=== PATIENT | female | born 1990 | race Caucasian/White ===

== ENCOUNTER 2019-08-28 21:49 | Observation (INO) | payer OTHER, SELFPAY ==
[2019-08-28 21:51] VITALS: BP 113/64; PULSE 93; RESP 16; TEMP 36.4; O2SAT 99
--- NOTE | 2019-08-28 21:57 | ED.NAVMDI ---
HPI - Nausea/Vomiting/Diarrhea General Chief complaint: Nausea/Vomiting/Diarrhea Stated complaint: N/V; 5 MONTHS Time Seen by Provider: 08/28/19 21:57 Source: patient Mode of arrival: ambulatory Limitations: no limitations History of Present Illness HPI Narrative: A 29 y/o female presents to the ED with c/o N/V. Pt states that the N/V started 2 days ago and has been constant since. She notes that she was seen at [facility] yesterday and was prescribed an anti-nausea medication. Pt adds that she has not taken her medication due to the vomiting. She denies diarrhea, fever, ABD pain, vaginal bleeding, and vaginal discharge. Pt states that she is diagnosed with a UTI and has not taken her antibiotics either. 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 MD elicited complaint: nausea and vomiting Onset (ago): day(s) (2) Associated abdominal pain: No Location of pain: none Associated symptoms: denies other symptoms Related Data Allergies Allergy/AdvReac Type Severity Reaction Status Date / Time sulfamethoxazole Allergy Mild Verified 02/28/15 10:54 clindamycin Allergy Unknown Verified 03/02/15 15:49 Sulfa (Sulfonamide Allergy Unknown Verified 03/02/15 15:48 Antibiotics) sulfamethizole Allergy Unknown Verified 03/02/15 15:48 trimethoprim Allergy Unknown Verified 03/02/15 15:48 Review of Systems Review of Systems: All systems reviewed & are unremarkable except as noted in HPI and below Constitutional: Constitutional: Denies fever(s) Gastrointestinal: Gastrointestinal: Denies abdominal pain, Denies diarrhea, Reports nausea and Reports vomiting Genitourinary: Genitourinary: Denies abnormal vaginal bleeding and Denies vaginal discharge [facility] Past Medical History Medical History Healthy adult Surgical History Surgical History (Updated 08/28/19 @ 22:04 by Kimberly Leigh) No pertinent past surgical history Social History Social History (Updated 08/28/19 @ 22:04 by Kimberly Leigh) Smoking status: Smoker, status unknown Alcohol intake: never Gender identity (if verbalized by the patient): Female Exam Narrative: Exam Narrative: APPEARANCE: No acute distress, nontoxic, resting in bed EYES: EOMI HEENT: Normocephalic, atraumatic, oromucosa dry, no erythema or exudate posterior pharynx RESPIRATORY: No respiratory distress Clear to auscultation bilaterally with no rhonchi wheezing or rales. CARDIOVASCULAR: Regular rate and rhythm without murmurs rubs or gallops. ABDOMINAL: Soft, nontender, nondistended, no rebound or guarding MUSCULOSKELETAl: Moves all extremities. No clubbing, cyanosis or edema. NEURO: Awake and alert. Following commands, speech normal, no focal deficits SKIN:: Warm, dry. No rashes lesions or abrasions PSYCHIATRIC: Normal affect/mood, Course Course Emergency Course: Patient was reassessed twice with p.o. challenges following medications and each time with emesis will admit at this time Discussed with Dr. Can presentation work-up. Agrees with admission at this time. Agrees with giving Zofran at this time Discussed with patient and family results of workup and diagnosis. Discussed need for admission. Patient and family understand and agree to current treatment plan Vital Signs Vital signs: Vital Signs Temperature 97.6 F 08/28/19 21:51 Pulse Rate 93 08/28/19 21:51 Respiratory Rate 16 08/28/19 21:51 Blood Pressure 113/64 08/28/19 21:51 Pulse Oximetry 99 08/28/19 21:51 Temperature 97.3 F L 08/28/19 23:14 Pulse Rate 84 08/29/19 00:50 Respiratory Rate 19 08/29/19 00:50 Blood Pressure 106/58 L 08/29/19 00:50 Pulse Oximetry 100 08/29/19 00:50 MDM - Nausea/Vomiting/Diarrhea Lab Data Result diagrams: 08/28/19 22:09 08/28/19 22:09 Labs: Lab Results 08/28/19 08/28/19 08/28/19 Range/Units 22:09 22:09 22:34 WBC 8.1 (4.5-10.0) K/mm3 RBC 4.38 (4.2-5.4) M/m
[2019-08-28 22:10] VITALS: BP 125/85; PULSE 74; RESP 19; TEMP 36.8; O2SAT 100
[2019-08-28 22:14] LABS: Basophils Percent Auto 0.1 % (0.2-1.2); Eosinophils Percent Auto 0.1 % (0-4.4); Hematocrit 39.1 % (37.0-47.0); Hemoglobin 12.8 g/dL (12.0-15.0); Immature Granulocyte Absolute 0.03 K/mm3 (0.00-0.031); Immature Granulocyte Percent A 0.4 % (0-0.5); Lymphocytes Absolute Auto 0.64 K/mm3 (0.9-3.2); Lymphocytes Percent Auto 7.9 % (18.3-44.2); Mean Corpuscular HGB Conc 32.7 g/dl (32-36); Mean Corpuscular Hemoglobin 29.2 pg (26-34); Mean Corpuscular Volume 89.3 fl (80-100); Mean Platelet Volume 10.8 fl (7.4-10.4); Monocytes Absolute Auto 0.7 K/mm3 (0.1-0.6); Monocytes Percent Auto 8.5 % (2.6-8.5); Neutrophils Absolute Auto 6.8 K/mm3 (1.3-6.7); Platelet Count Result 227 k/mm3 (150-375); Red Blood Count 4.38 M/mm3 (4.2-5.4); Red Cell Distribution Width 13.5 % (11.5-14.5); White Blood Count 8.1 K/mm3 (4.5-10.0)
[2019-08-28] MEDS: FAMOTIDINE 20 MG/2 ML VIAL IV PUSH (22:15)
[2019-08-28] MEDS: PROMETHAZINE HCL 25 MG/ML AMPUL 12.5 MG IV PUSH (22:15)
[2019-08-28] MEDS: LACTATED RINGERS 1,000 ML 999 ML IV CONT (22:15)
[2019-08-28 22:25] LABS: Alanine Aminotransferase 18 U/L (4-35); Albumin Level 4.1 g/dL (3.5-5.1); Alkaline Phosphatase 120 U/L (38-126); Aspartate Amino Transferase 27 U/L (14-36); Bilirubin,Total 0.4 mg/dL (0.2-1.3); Blood Urea Nitrogen 5 mg/dL (7-17); Calcium 9.1 mg/dL (8.4-10.2); Carbon Dioxide 26 mmol/L (22-30); Chloride 102 mmol/L (98-107); Estimated Glomerular Filt Rate > 60; Glucose 88 mg/dL (65-105); Lipase 54 U/L (23-300); Potassium 3.8 mmol/L (3.4-5.0); Sodium 137 mmol/L (137-145)
[2019-08-28 22:46] LABS: Add Urine Microscopic? YES; Appearance Urine Clear (Clear); Bacteria Urine Trace /hpf; Bilirubin Urine Negative (Negative); Blood Urine Negative (Negative); Calcium Oxalate Crystals Urine Present /hpf; Color Urine Yellow (Yellow); Glucose Urine UA Negative (Negative); Ketones Urine Negative (Negative); Leukocyte Esterase Ur 1+ LEU/UL (Negative); Mucus Urine Heavy /lpf; Nitrate Urine Negative (Negative); Protein Urine Negative (Negative); Specific Grav Ur 1.019 (1.001-1.035); Squamous Epithelial Cell Urine Many /hpf (Few)
[2019-08-28 23:14] VITALS: BP 129/86; PULSE 75; RESP 19; TEMP 36.3; O2SAT 100
[2019-08-29 00:50] VITALS: BP 106/58; PULSE 84; RESP 19; O2SAT 100
--- NOTE | 2019-08-29 00:50 | PC.NURSE ---
PT REPORTING NAUSEA AT THIS TIME. MD AWARE.
[2019-08-29] MEDS: ONDANSETRON INJ 4 MG/2 ML VIAL IV PUSH (01:32)
[2019-08-29 01:33] VITALS: BP 105/86; PULSE 74; RESP 19; TEMP 37; O2SAT 100
--- NOTE | 2019-08-29 02:07 | PC.NURSE ---
This patient, Socorro Newell, was admitted to 2 Medical Room 251-. Patient/family oriented to hospital policies and general routines including ID bracelet, bed and alarms, visiting hours, pain management, procedures, bathroom and other care routines, personal items, smoking policy, room service/diet, and visiting hours. Valuables list has been completed. Information on how to activate the Rapid Response Team has been discussed. Patient/Family are encouraged to report perceived risks to care and to ask questions if they do not understand what they are told or what they should do.
[2019-08-29 02:17] VITALS: BP 96/58; PULSE 84; RESP 16; TEMP 36.4; O2SAT 97; BMI 27.6
[2019-08-29] MEDS: LACTATED RINGERS 1,000 ML 125 ML IV CONT ×2 (03:25→12:42)
[2019-08-29 06:00] VITALS: BP 92/48; PULSE 72; RESP 16; TEMP 36.2; O2SAT 98
--- NOTE | 2019-08-29 13:15 | PM.IMHP ---
H&P: HPI History of Present Illness Chief complaint: Nausea and vomiting,diarrhea, Narrative: Socorro Newell is a 29 year old multiparous female in the 2nd trimester of her gestation. She had protracted nausea vomiting. She has been to the emergency room multiple times the last several days. She was admitted today for prolonged monitoring and supportive care. She was given antiemetics and IV fluids. Review of Systems Constitutional: Constitutional: Reports no additional constitutional complaints, Denies fatigue, Denies headache(s), Denies lethargy and Denies weakness Eyes: Eyes: Reports no additional eye complaints, Denies blurry vision and Denies photophobia ENT: Reports as per HPI, Denies headache(s) and Denies neck pain Cardiovascular: Cardiovascular: Denies chest pain, Denies diaphoresis, Denies leg edema, Denies palpitations and Denies dyspnea Respiratory: Respiratory: Denies hemoptysis, Denies dyspnea and Denies wheezing Gastrointestinal: Gastrointestinal: Denies abdominal pain, Denies melena, Denies bloating, Denies hematochezia, Denies nausea and Denies vomiting Genitourinary: Genitourinary: Reports no additional female genitourinary complaints Musculoskeletal: Musculoskeletal: Denies joint swelling, Denies neck pain, Denies numbness and Denies stiffness Neurologic: Denies Abnormal speech present, Denies confusion, Denies headache(s), Denies numbness and Denies weakness Psychiatric: Psychiatric: Denies anxiety, Denies confusion, Denies depression, Denies homicidal ideation and Denies suicidal ideation Endocrine: Endocrine: Denies fatigue and Denies palpitations Allergic/Immunologic: Allergic/Immunologic: Denies wheezing [facility] Past Medical History Medical History Healthy adult Surgical History Surgical History (Updated 08/28/19 @ 22:04 by Kimberly Leigh) No pertinent past surgical history Social History Social History (Updated 08/28/19 @ 22:04 by Kimberly Leigh) Smoking status: Never smoker Alcohol intake: never Substance use: never Substance use type: does not use Gender identity (if verbalized by the patient): Female Spiritual care concerns: No Agree to blood products: Yes Meds Home Medications and Allergies Home Medications Medication Instructions Recorded Confirmed Type nitrofurantoin monohyd/m-cryst 100 mg PO BID 08/29/19 08/29/19 History Allergies Allergy/AdvReac Type Severity Reaction Status Date / Time sulfamethoxazole Allergy Mild Verified 02/28/15 10:54 clindamycin Allergy Unknown Verified 03/02/15 15:49 Sulfa (Sulfonamide Allergy Unknown Verified 03/02/15 15:48 Antibiotics) sulfamethizole Allergy Unknown Verified 03/02/15 15:48 trimethoprim Allergy Unknown Verified 03/02/15 15:48 Vital Signs Vital Signs - 24 hr 08/28/19 21:51 08/28/19 22:10 08/28/19 23:14 Temperature 97.6 F 98.3 F 97.3 F L Pulse Rate 93 74 75 Respiratory Rate 16 19 19 Blood Pressure 113/64 125/85 129/86 Pulse Oximetry 99 100 100 08/29/19 00:50 08/29/19 01:33 08/29/19 02:17 Temperature 98.6 F 97.5 F L Pulse Rate 84 74 84 Respiratory Rate 19 19 16 Blood Pressure 106/58 L 105/86 96/58 L Pulse Oximetry 100 100 97 08/29/19 06:00 Temperature 97.1 F L Pulse Rate 72 Respiratory Rate 16 Blood Pressure 92/48 L Pulse Oximetry 98 Exam Const: General: healthy appearing, comfortable and no acute distress; No confusion Orientation/consciousness: No confusion Eyes: Direct Ophthalmoscopy: No photophobia Resp: Auscultation: clear to auscultation bilaterally, no rales, no rhonchi and no wheezes Cardio: Rate: regular rate Heart sounds: no click, no murmurs and no rubs GI: Inspection: non-distended GI Palp: No abdominal tenderness Auscultation: normal bowel sounds Neuro: General: No confusion Speech: No Abnormal speech present Extrem: General: normal to inspection, no pedal edema and no calf tenderness
== END 2019-08-29 14:50 | disposition home or self-care (01) ==
LOC: ANHED 08-29 01:15 → ANH2MED 08-29 01:26
PROVIDERS: Admitting Provider Obstetrics & Gynecology; Emergency Provider Emergency Medicine; PCP Internal Medicine; Visit Provider Obstetrics & Gynecology
DX: O21.2 Late vomiting of pregnancy (principal); O23.42 Unspecified infection of urinary tract in pregnancy, second trimester; Z3A.26 26 weeks gestation of pregnancy; Z88.2 Allergy status to sulfonamides; Z88.3 Allergy status to other anti-infective agents
CPT/HCPCS: 36415; 80053; 81001; 83690; 85025; 87086; 87804; 96361; 96374; 96375; 99285; G0378; G0379; J1200; J2405; J2550; J7120

== ENCOUNTER 2019-11-18 10:59 | Observation (INO) | payer OTHER, SELFPAY ==
--- NOTE | ~2019-11-18 | US_ITS ---
EXAMINATION: US OB limited EXAM DATE: 11/18/2019 15:14 INDICATION: Leaking fluid. 3rd trimester. TECHNIQUE: Pelvic obstetrical transabdominal sonogram was performed by a technologist. There are mu ltiple grayscale and Doppler images available for interpretation. There are no earlier studies of th is gestation for comparison. FINDINGS: There is a single fetus identified in vertex presentation with a heart rate of 141 beats pe r minute. The placenta is located in the posterior fundal position. There is no sonographic evidence of retroplacental hemorrhage identified. AMNIOTIC FLUID INDEX Quadrant 1: 5.1 cm Quadrant 2: 2.1 cm Quadrant 3: 0.0 cm Quadrant 4: 1.3 cm Amniotic fluid index: 8.5 cm. (The 5th -- 95th percentile range is 7.5-24.4). IMPRESSION: 1. Single fetus in vertex presentation with heart rate 141 beats per minute. 2. Normal CINDY 8.5 cm. Reviewed, dictated and finalized at location A.
[2019-11-18 13:00] VITALS: BMI 30.6
--- NOTE | 2019-11-18 13:00 | OBADM ---
This patient, Socorro Newell, admitted to the OB room 109 for observation for c/o leakage of fluid and contractions. Patient/family oriented to hospital policies and general routines including ID bracelet, bed and alarms, visiting hours, pain management, procedures, bathroom and other care routines, personal items, smoking policy, room service/diet, and visiting hours. Patient/Family are encouraged to report perceived risks to care and to ask questions if they do not understand what they are told or what they should do.
[2019-11-18 15:15] VITALS: BP 113/65; PULSE 74
--- NOTE | 2019-12-05 07:47 | PM.OBTRLD ---
OB - Triage/Final Diagnosis Final Diagnosis (1) False labor: Code(s): O47.9 - False labor, unspecified Status: Acute
== END 2019-11-18 15:56 | disposition home or self-care (01) ==
PROVIDERS: Admitting Provider Obstetrics & Gynecology; Visit Provider Obstetrics & Gynecology
DX: O42.919 Preterm premature rupture of membranes, unspecified as to length of time between rupture and onset of labor, unspecified trimester (principal); Z3A.00 Weeks of gestation of pregnancy not specified
CPT/HCPCS: 76815; G0378; G0379

== ENCOUNTER 2019-11-22 12:53 | Outpatient (CLI) | payer OTHER, SELFPAY ==
[2019-11-22 14:09] VITALS: BP 125/54; PULSE 95
== END 2019-11-22 14:00 | disposition home or self-care (01) ==
LOC: ANHOBOP 14:03
PROVIDERS: Visit Provider Obstetrics & Gynecology
DX: O41.8X90 Other specified disorders of amniotic fluid and membranes, unspecified trimester, not applicable or unspecified (principal)
CPT/HCPCS: 59025

== ENCOUNTER 2019-11-27 19:50 | Inpatient (IN) | payer OTHER, SELFPAY ==
[2019-11-27] VITALS (24 sets, daily range): BP systolic 82–124; BP diastolic 37–71; PULSE 55–231; RESP 16; TEMP 36.6–36.7; O2SAT 100; BMI 31.1
[2019-11-27] MEDS: LACTATED RINGERS 1,000 ML 125 ML IV CONT (20:15)
[2019-11-27 20:25] LABS: Basophils Percent Auto 0.2 % (0.2-1.2); Eosinophils Percent Auto 0.3 % (0-4.4); Hematocrit 35.6 % (37.0-47.0); Hemoglobin 11.6 g/dL (12.0-15.0); Immature Granulocyte Absolute 0.03 K/mm3 (0.00-0.031); Immature Granulocyte Percent A 0.3 % (0-0.5); Lymphocytes Percent Auto 14.6 % (18.3-44.2); Mean Corpuscular HGB Conc 32.6 g/dl (32-36); Mean Corpuscular Hemoglobin 28.2 pg (26-34); Mean Corpuscular Volume 86.4 fl (80-100); Mean Platelet Volume 11.2 fl (7.4-10.4); Monocytes Absolute Auto 0.8 K/mm3 (0.1-0.6); Monocytes Percent Auto 7.2 % (2.6-8.5); Neutrophils Absolute Auto 8.5 K/mm3 (1.3-6.7); Neutrophils Percent Auto 77.4 % (45.5-73.1); Platelet Count Result 198 k/mm3 (150-375); Red Blood Count 4.12 M/mm3 (4.2-5.4); Red Cell Distribution Width 13.9 % (11.5-14.5); White Blood Count 10.9 K/mm3 (4.5-10.0)
--- NOTE | 2019-11-27 20:35 | WPDANESEPPF ---
Anes - Initial Pre Proc Eval Procedure: labor epidural Date/Time: 11/27/19 20:35 Surgeon: Tawny Guaman MD Pre Op Diagnosis: contractions Patient Data Age: 29 Gender: F Height: Weight: Last Vital Signs Pulse 81 11/27/19 20:35 BP 112/62 11/27/19 20:35 Pulse Ox 100 11/27/19 20:34 Allergies Allergy/AdvReac Type Severity Reaction Status Date / Time sulfamethoxazole Allergy Mild Hives Verified 11/18/19 15:19 clindamycin Allergy Unknown Hives Verified 11/18/19 15:19 Sulfa (Sulfonamide Allergy Unknown Hives Verified 11/18/19 15:19 Antibiotics) sulfamethizole Allergy Unknown Hives Verified 11/18/19 15:19 trimethoprim Allergy Unknown Hives Verified 11/18/19 15:19 Home Medications Medication Instructions Recorded Confirmed Type No Home Medications 11/18/19 11/18/19 History Laboratory Tests 11/27/19 11/27/19 20:20 20:20 WBC 10.9 K/mm3 H K/mm3 (4.5-10.0) RBC 4.12 M/mm3 L M/mm3 (4.2-5.4) Hgb 11.6 g/dL L g/dL (12.0-15.0) Hct 35.6 % L % (37.0-47.0) MCV 86.4 fl fl (80-100) MCH 28.2 pg pg (26-34) MCHC 32.6 g/dl g/dl (32-36) RDW 13.9 % % (11.5-14.5) Plt Count 198 k/mm3 k/mm3 (150-375) MPV 11.2 fl H fl (7.4-10.4) Immature Gran % (Auto) 0.3 % % (0-0.5) Neut % (Auto) 77.4 % H % (45.5-73.1) Lymph % (Auto) 14.6 % L % (18.3-44.2) Logan % (Auto) 7.2 % % (2.6-8.5) Eos % (Auto) 0.3 % % (0-4.4) Baso % (Auto) 0.2 % % (0.2-1.2) Lymph # (Auto) 1.60 K/mm3 K/mm3 (0.9-3.2) Logan # (Auto) 0.8 K/mm3 H K/mm3 (0.1-0.6) Eos # (Auto) 0.0 K/mm3 K/mm3 (0-0.3) Baso # (Auto) 0.0 K/mm3 K/mm3 (0.0-0.1) Abs Immat Gran (auto) 0.03 K/mm3 K/mm3 (0.00-0.031) Absolute Neuts (auto) 8.5 K/mm3 H K/mm3 (1.3-6.7) Absolute Nucleated RBC 0.0 K/mm3 K/mm3 (0.0-0.012) Nucleated RBC % 0.0 % % (0.0-0.2) RPR Pending Patient hx anesthesia problems: none Family hx anesthesia problems: none [facility] Past Medical History Medical History Healthy adult Surgical History Surgical History No pertinent past surgical history Family History Family History Mother Hypertension Breast cancer Social History Social History Smoking status: Never smoker Alcohol intake: never Substance use: never Substance use type: does not use Gender identity (if verbalized by the patient): Female Spiritual care concerns: No Agree to blood products: Yes Anes - Eval Final PreProcedure Day of Procedure 11/27/19 20:35 Patient weight: overweight Heart: regular rate and rhythm Lungs: clear to auscultation and normal air movement Airway: Mallampati scale Neurological: alert and oriented ASA classification: II Emergent: no Anesthetic plan: proceed Anesthesia type and monitoring: regional epidural and standard monitoring Informed Consent: The patient's anesthetic plan and its attendant risks and benefits were discussed with the patient/family/POA. Questions were solicited and answers provided to the satisfaction of the patient/family/POA.
[2019-11-27] MEDS: OXYTOCIN 30 UNITS/NS 500 ML 30 UNITS/500 ML BAG 999 UNITS IV CONT (20:56)
--- NOTE | 2019-11-27 21:01 | WPDOBADMIT ---
Obstetrics - Admit Note Admission Note: record reviewed. No pertinent additions to the history and/or any subsequent changes in the physical findings that are not consistent with the expected course of the were found. Arrived in active labor to LD, AROM and pt to complete/100/0 station Additions to the history and/or subsequent changes in the physical findings follow. None.
--- NOTE | 2019-11-27 21:02 | PM.OBPRVD ---
OB - Delivery Note Procedure Delivery date: 11/27/19 Procedure: vaginal delivery Intrapartal events: Precipitous Labor < 3 hours Delivery augmentation: rupture of membranes Delivery monitor: external FHT and external uterine Route of delivery: Laceration description: None Specimen: No Estimated blood loss (mL): 80 Anesthesia type: Epidural Disposition: other () Baby Date of : 11/27/19 Time of : 20:53 Weeks of gestation at delivery: 38 Infant gender: Male Weight (pounds): 8 Weight (ounces): 0 presentation: vertex position: Left Occiput Anterior Placenta delivery description: Spontaneous cord vessel description: 3 Vessels, Nuchal Cord, Tight and Clamped/Cut score one minute: 8 score five minutes: 9 Narrative: mother and baby in stable condition
[2019-11-27] MEDS: OXYTOCIN 30 UNITS/NS 500 ML 30 UNITS/500 ML BAG 125 UNITS IV CONT (21:32)
--- NOTE | 2019-11-27 21:55 | LDADM ---
This patient, Socorro Martin Newell, was admitted to Labor/Delivery/Recovery 104 on 11/27/19 at 19:50. Plans for labor, pain management and were discussed with patient. Patient/family oriented to hospital policies and general routines including ID bracelet, bed and alarms, visiting hours, pain management, procedures, bathroom and other care routines, personal items, smoking policy, room service/diet and guest tray routines, security routines, and visiting hours. Patient/Family are encouraged to report perceived risks to care and to ask questions if they do not understand what they are told or what they should do. See OBIX for further documentation. Pt feeling movements. Denies leaking or bleeding. 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 Pt states she was 4cm today and membranes stripped in office this am at appointment.
[2019-11-28] VITALS (16 sets, daily range): BP systolic 98–110; BP diastolic 58–72; PULSE 49–83; RESP 11–20; TEMP 36.2–37.3; O2SAT 95–100
[2019-11-28 03:06] LABS: Hematocrit 35.4 % (37.0-47.0); Hemoglobin 11.6 g/dL (12.0-15.0)
[2019-11-28] MEDS: IBUPROFEN 600 MG TABLET PO ×2 (07:50→14:50)
--- NOTE | 2019-11-28 07:57 | P.PNOB_ITS ---
OB - PN: Subj Subjective Date/time seen: 11/28/19 07:57 OB - PN: Obj Data Labs CBC & Chem 7: 11/28/19 03:00 Labs: Laboratory Results - last 24 hr 11/27/19 11/27/19 11/28/19 20:20 20:20 03:00 WBC 10.9 H RBC 4.12 L Hgb 11.6 L 11.6 L Hct 35.6 L 35.4 L MCV 86.4 MCH 28.2 MCHC 32.6 RDW 13.9 Plt Count 198 MPV 11.2 H Immature Gran % (Auto) 0.3 Neut % (Auto) 77.4 H Lymph % (Auto) 14.6 L Emanuel % (Auto) 7.2 Eos % (Auto) 0.3 Baso % (Auto) 0.2 Lymph # (Auto) 1.60 Emanuel # (Auto) 0.8 H Eos # (Auto) 0.0 Baso # (Auto) 0.0 Abs Immat Gran (auto) 0.03 Absolute Neuts (auto) 8.5 H Absolute Nucleated RBC 0.0 Nucleated RBC % 0.0 Blood Type O Positive Antibody Screen Negative OB - PN A/P Assessment and Plan (1) Vaginal delivery: Code(s): O80 - Encounter for full-term uncomplicated delivery Status: Acute Time Spent With Patient Time: Total time spent is greater than 50% in coordination of care (as documented) at patient's floor/unit and/or counseling patient: Review of Systems Review of Systems: All systems reviewed & are unremarkable except as noted in HPI and below Exam Narrative: Exam Narrative: Fundus firm and vaginal flow controlled. Const: General: comfortable Chest: Breast/axilla inspection: normal inspection of the breasts Resp: Effort & Inspection: normal respiratory effort Cardio: Rate: regular rate Psych: Appearance: grossly normal Affect: normal affect Attitude: cooperative Judgement: Good judgement present (Psych)
--- NOTE | 2019-11-28 09:24 | WPDANLDPN2 ---
Anes-Prog Note L&D Date/Time: 11/28/19 09:24 Comfortable throughout: labor and delivery Neuraxial method: epidural Epidural/Spinal procedure site: clean & non-tender Neuro status: Neuro function grossly intact. Cardiovascular status: normal Respiratory status: normal Airway patency: baseline Mental status: baseline Post-Op hydration status: normal Vital Signs: Last Vital Signs Temp 98.0 F 11/27/19 23:54 Pulse 55 L 11/27/19 23:54 Resp 16 11/27/19 23:54 BP 102/64 11/27/19 23:54 Pulse Ox 100 11/27/19 20:49 I/O: Intake & Output 11/27/19 11/28/19 11/28/19 23:59 07:59 15:59 Intake Total 1500 Balance 1500 Post-procedural complaints: none Patient feedback: Patient satisfied with anesthetic care. Other findings: epidural catheter remains intact, anticipate PPTL this afternoon
[2019-11-28] MEDS: LACTATED RINGERS 1,000 ML 30 ML IV CONT ×2 (11:10→12:57)
--- NOTE | 2019-11-28 11:22 | WPDANESEFPP ---
Anes - Eval Final PreProcedure Day of Procedure 11/28/19 11:22 Patient weight: overweight Heart: regular rate and rhythm Lungs: clear to auscultation Airway: Mallampati scale class II Neurological: alert and oriented Last oral intake: >/= 8 hours ASA classification: II Emergent: no Anesthetic plan: proceed Anesthesia type and monitoring: regional epidural and standard monitoring Informed Consent: The patient's anesthetic plan and its attendant risks and benefits were discussed with the patient/family/POA. Questions were solicited and answers provided to the satisfaction of the patient/family/POA.
[2019-11-28 11:27] LABS: Rapid Plasma Reagin Non-Reactive (NonReactive)
--- NOTE | 2019-11-28 11:30 | HP_ITS ---
DATE OF SERVICE: Surgery is scheduled for today, November 27. HISTORY OF PRESENT ILLNESS: Socorro is a 29-year-old, G3, P3, who had a vaginal delivery last night, who had expressed a desire throughout her for sterilization and they continued desire for this morning. She has no complaints today. PAST MEDICAL HISTORY: Negative. MEDICATIONS: vitamin and ibuprofen. ALLERGIES: SHE IS ALLERGIC TO SULFAMETHOXAZOLE, CLINDAMYCIN, AND TRIMETHOPRIM. PAST SURGICAL HISTORY: Negative. SOCIAL HISTORY: Negative for tobacco, alcohol, or drug use. PAST OB HISTORY: She has had 3 vaginal deliveries. REVIEW OF SYSTEMS: Negative. PHYSICAL EXAMINATION: VITAL SIGNS: She is afebrile with normal vital signs and her last weight was 180 pounds. GENERAL: She is in no apparent distress. HEART: Regular rate and rhythm. LUNGS: Clear to auscultation. ABDOMEN: Soft, nontender, and nondistended. Fundus is firm and nontender below the umbilicus. EXTREMITIES: Nontender with no edema. ASSESSMENT AND PLAN: 1. G3, P3, who is postop day #1 status post vaginal delivery, doing well . 2. Desires sterilization. She did sign IDPA tubal ligation consent on September 22. She still has an epidural in place. She would like to proceed with the surgery, so she is scheduled at noon today. Plan will be for her to stay overnight 1 more night and likely discharge home tomorrow after the risks, benefits, complications, and alternatives were discussed for the surgery. D I MT: [facility]
--- NOTE | 2019-11-28 12:01 | WPDHPUPDATE1 ---
History and Physical Update Update Date/Time: 11/28/19 12:01 History and Physical has been reviewed, including an updated exam of the patient. There are NO changes in the patient's condition. Risks, benefits, and alternatives have been discussed and questions answered. Patient agrees to proceed with procedure.
--- NOTE | 2019-11-28 12:02 | PM.OP ---
Procedure Note - Brief Procedure Note - Brief Date of procedure: 11/28/19 Pre-op diagnosis: contractions Desires sterilization Post-op diagnosis: same Procedure performed: Bilateral tubal ligation Anesthesia: GETA Surgeon: Tawny Guaman MD Estimated blood loss (mL): 10 Drains: No Pathology: yes Complications: No immediate complications Condition: stable Disposition: PACU Findings: Normal fallopian tubes, uterine fundus
[2019-11-28] MEDS: BUPIVACAINE/EPINEPHRINE 0.5% 10 ML VIAL INFILTRATE (12:31)
--- NOTE | 2019-11-28 14:00 | OP_ITS ---
DATE OF PROCEDURE: 11/28/2019 PREOPERATIVE DIAGNOSIS: Desires sterilization. POSTOPERATIVE DIAGNOSIS: Desires sterilization. PROCEDURE PERFORMED: bilateral tubal ligation. ANESTHESIA: General endotracheal tube. ESTIMATED BLOOD LOSS: 10 mL. COMPLICATIONS: None. FINDINGS: Normal uterine fundus, normal fallopian tubes bilaterally. INDICATIONS: A 29-year-old, G3, P3, who had a vaginal delivery yesterday. She had expressed a desire throughout her as well as the continued desire this morning for tubal ligation and she signed consent after the risks, benefits, complications, and alternatives were discussed. DESCRIPTION OF PROCEDURE: For the procedure, she was taken to the operating room. Her epidural had been lessened from labor and it was not effective, so she was placed under general anesthesia. She was prepared and draped in the normal sterile fashion in the dorsal supine position. The infraumbilical fold was tented up with 2 Allis clamps and an infraumbilical skin incision was made with a scalpel. The fascia was incised in the midline with a scalpel and the peritoneum was tented up with Metzenbaum scissors and entered sharply. Once the peritoneal cavity was entered, the fascial incision was extended laterally with the Metzenbaum scissors with the aid of the [employer] retractor. The right fallopian tube was identified and followed out to its fimbriated end using a Fackler clamp, the mid isthmic portion was tented up and a defect made in the mesosalpinx with the Bovie. Two free ties of 0 plain gut were placed around the fallopian tube and the intervening segment of tube was excised. Attention was then turned to the left fallopian tube, where the same procedure was performed. All operative sites were found to be hemostatic. The fascia was then closed using 0 Vicryl in a running fashion. The subcutaneous tissue was irrigated. All bleeding points were cauterized. The skin was closed using 4-0 Monocryl in subcuticular fashion. She tolerated the procedure well. Sponge, lap, needle, and instrument counts were correct x2 and she was taken to the recovery room in stable condition. Helen I MT: [facility]
[2019-11-28] MEDS: SIMETHICONE 80 MG TAB.CHEW PO (19:13)
--- NOTE | 2019-11-28 19:52 | PC.NURSE ---
1057 To OR per stretcher for Tubal Ligation with Dr. Guaman [id number] Returned from OR per stretcher; awake, sleepy. VSS and assessment WNL.
[2019-11-29 04:49] LABS: Hematocrit 33.5 % (37.0-47.0); Hemoglobin 10.8 g/dL (12.0-15.0)
--- NOTE | 2019-11-29 07:52 | PM.OBPNVD ---
OB - PN: Subj Subjective Date/time seen: 11/29/19 07:52 Patient comments: no complaints baby status: doing well OB - PN: Obj Data Labs CBC & Chem 7: 11/29/19 04:27 Labs: Laboratory Results - last 24 hr 11/27/19 11/29/19 20:20 04:27 Hgb 10.8 L Hct 33.5 L RPR Non-reactive OB - PN A/P Plan day: 2 Plan: discharge home Time Spent With Patient Time: Total time spent is greater than 50% in coordination of care (as documented) at patient's floor/unit and/or counseling patient: Exam Const: General: comfortable Psych: Appearance: grossly normal Affect: normal affect Attitude: cooperative
[2019-11-29] MEDS: MULTIVIT/MIN/PREN/FOL AC/IRON TABLET 1 TAB PO (08:08)
[2019-11-29] MEDS: DOCUSATE SODIUM 100 MG CAPSULE PO (08:08)
[2019-11-29] MEDS: IBUPROFEN 600 MG TABLET PO (08:08)
[2019-11-29 08:40] VITALS: BP 95/55; PULSE 60; RESP 18; TEMP 37.1; O2SAT 98
--- NOTE | 2019-11-29 10:00 | WPDANESPN ---
Anes - Prog Note Post-Op Date/Time: 11/29/19 10:00 Cardiovascular status: normal Respiratory status: normal Airway patency: baseline Mental status: baseline Post-Op hydration status: normal Vital Signs: Last Vital Signs Temp 37.1 C 11/29/19 08:40 Pulse 60 11/29/19 08:40 Resp 18 11/29/19 08:40 BP 95/55 L 11/29/19 08:40 Pulse Ox 98 11/29/19 08:40 Laboratory Tests 11/29/19 04:27 11/27/19 11/29/19 20:20 04:27 Hgb 10.8 L Hct 33.5 L RPR Non-reactive Post-procedural complaints: none Patient Feedback: Patient satisfied with anesthetic care.
--- NOTE | 2019-12-13 07:45 | PM.OBDSVD ---
DS: Admitting Diagnosis Admitting Diagnosis Admitting Diagnosis: Encounter for supervision of normal , unspecified, third trimester OB - DS: Summary OB Procedures : None OB Procedures Intrapartum: Spontaneous Vag Delivery OB Procedures: : P.P. tubal ligation Peripartum Data Procedures: Procedures Operation Date: 11/28/19 12:00 Actual Procedures Side Surgeon p Post- Tubal Ligation Bilateral Tawny Guaman MD Time Spent with Patient Time attestation: Total time spent providing and/or coordinating discharge services: DS: Data Data Completed and Pending Completed studies during hospitalization: Pending at discharge 11/28/19 12:40 Surgical [PTH] Routine Discharge Plan Discharge Attending physician on discharge: Dakota Can Consulting providers: Ashley Puckett ; Linh Rodriguez ; Zachariah He Discharging Clinician: Ashley Puckett Patient Disposition: Home, Self-Care Activity: pelvic rest Diet: regular Discharge Instructions: Education: Mom and Baby Guide Given to: Follow-Up: Call your delivering provider's office for an appointment to be seen in: Mom and baby should come to the [facility] for the follow-up appointment. Appointment Date/Time: at What to expect at your follow-up visit: Call [phone] if you are unable to keep your appointment time. BREAST CARE: 1. Wear a snug supportive bra. 2. For engorgement discomfort: Breast Feeding: A. Apply warm moist washcloths B. Express milk as needed to relieve engorgement C. Wear loose clothing Bottle Feeding: A. May apply ice packs 3. For sore nipples: A. Identify correct latch-on B. Apply warm moist washcloths before and after nursing C. Air dry nipples after nursing D. May apply Lansinoh cream to nipples ABDOMINAL INCISION: (if applicable) 1. Allow incision to air dry 2. Do NOT use lotions for powders on your incision 3. When showering, allow soap and water to run over the incision, but do not wash incision EPISIOTOMY/PERINEAL CARE: 1. Until bleeding stops, use your dago bottle after urinating 2. Change your pad frequently throughout the day 3. You may take sitz baths several times a day (fill your bathtub with warm water and soak for 20 minutes.) Do NOT bathe in the water 4. No tub baths until seen by your physician - You may shower ACTIVITY: 1. Rest as much as possible. 2. Do not exercise or lift anything heavier than your baby (such as laundry or other children.) 3. Avoid stairs or driving as much as possible. 4. Do not put anything into the vagina. No douching, tampons, or sexual activity until seen by physician. NOTIFY PHYSICIAN IF YOU HAVE ANY QUESTIONS OR IF ANY OF THE FOLLOWING SYMPTOMS OCCUR: 1. If your episiotomy or incision becomes red, swollen, or more painful than what you have experienced in the hospital. 2. If your vaginal bleeding becomes foul smelling. 3. If your vaginal bleeding becomes more heavy than a period or if your bleeding changes from pink to bright red. However, you may pass an occasional walnut-sized clot once or twice for the first week . 4. If you experience a sharp, shooting pain in you calves. 5. If you discover a hard, reddened area on your breast or if you experience flu-like symptoms. DIET: 1. Eat regular, well-balanced meals. 2. Drink plenty of fluids daily. If , drink to thirst. Patient Instructions: Antibiotic Form Stand Alone Forms: General Discharge Information Follow-up/Referrals: Ashley Puckett CNM [Certified Nurse Heel Seam [employer]ber] - 4 Weeks Discharge Medications: New ibuprofen 600 mg Tablet 600 mg PO Q6H PRN (Reason: Cramping) Qty: 30 RF: 0 Date of admission: 11/27/19 19:50 Primary Care Provider: UNKNOWN,DOCTOR Admitting Provider: Tawny Guaman Discharge Date
== END 2019-11-29 13:15 | disposition home or self-care (01) | DRG 541 ==
LOC: ANHLDR 23:53 → ANHOB2 23:59
PROVIDERS: Advanced Practice Midwife; Admitting Provider Obstetrics & Gynecology; Visit Provider Obstetrics & Gynecology
PROC: 0UB70ZZ Excision of Bilateral Fallopian Tubes, Open Approach (ICD-10-PCS; CPT 58605; principal; 2019-11-28 12:00)
DX: O62.3 Precipitate labor (principal); O69.1XX0 Labor and delivery complicated by cord around neck, with compression, not applicable or unspecified; Z30.2 Encounter for sterilization; Z3A.38 38 weeks gestation of pregnancy; Z37.0 Single live birth
CPT/HCPCS: 36415; 85014; 85018; 85025; 86592; 86850; 86900; 86901; 88302; A9270; J1100; J2250; J2405; J2590; J2704; J2795; J3010; J7120

== ENCOUNTER 2020-01-06 20:23 | Emergency (ER) | payer OTHER, SELFPAY ==
[2020-01-06 20:34] VITALS: BP 113/65; PULSE 97; RESP 14; TEMP 36.8; O2SAT 100
[2020-01-06 20:58] LABS: Add Urine Microscopic? YES; Appearance Urine Clear (Clear); Bacteria Urine Trace /hpf; Bilirubin Urine Negative (Negative); Blood Urine 1+ (Negative); Color Urine Yellow (Yellow); Glucose Urine UA Negative (Negative); Ketones Urine Negative (Negative); Leukocyte Esterase Ur Trace LEU/UL (Negative); Mucus Urine Few /lpf; Nitrate Urine Negative (Negative); Protein Urine Negative (Negative); Specific Grav Ur 1.026 (1.001-1.035); Squamous Epithelial Cell Urine Many /hpf (Few); Urobilinogen Urine Negative mg/dL (<2.0)
[2020-01-06 21:01] LABS: Basophils Percent Auto 0.3 % (0.2-1.2); Eosinophils Percent Auto 0.3 % (0-4.4); Hematocrit 42.1 % (37.0-47.0); Hemoglobin 13.7 g/dL (12.0-15.0); Immature Granulocyte Absolute 0.02 K/mm3 (0.00-0.031); Immature Granulocyte Percent A 0.2 % (0-0.5); Lymphocytes Absolute Auto 1.81 K/mm3 (0.9-3.2); Lymphocytes Percent Auto 16.1 % (18.3-44.2); Mean Corpuscular HGB Conc 32.5 g/dl (32-36); Mean Corpuscular Hemoglobin 28.2 pg (26-34); Mean Corpuscular Volume 86.8 fl (80-100); Mean Platelet Volume 11.5 fl (7.4-10.4); Monocytes Absolute Auto 0.8 K/mm3 (0.1-0.6); Monocytes Percent Auto 6.7 % (2.6-8.5); Neutrophils Absolute Auto 8.6 K/mm3 (1.3-6.7); Neutrophils Percent Auto 76.4 % (45.5-73.1); Platelet Count Result 226 k/mm3 (150-375); Red Blood Count 4.85 M/mm3 (4.2-5.4); Red Cell Distribution Width 13.8 % (11.5-14.5); White Blood Count 11.3 K/mm3 (4.5-10.0)
[2020-01-06 21:13] VITALS: BP 109/56; PULSE 88; RESP 18; O2SAT 98
[2020-01-06 21:13] LABS: Alanine Aminotransferase 12 U/L (4-35); Albumin Level 4.5 g/dL (3.5-5.1); Alkaline Phosphatase 99 U/L (38-126); Aspartate Amino Transferase 17 U/L (14-36); Bilirubin,Total 0.3 mg/dL (0.2-1.3); Blood Urea Nitrogen 15 mg/dL (7-17); Calcium 9.4 mg/dL (8.4-10.2); Carbon Dioxide 26 mmol/L (22-30); Chloride 103 mmol/L (98-107); Estimated CRCL calculation 90 ml/min; Estimated Glomerular Filt Rate > 60; Glucose 89 mg/dL (65-105); Lipase 71 U/L (23-300); Potassium 4.1 mmol/L (3.4-5.0); Sodium 139 mmol/L (137-145)
--- NOTE | 2020-01-06 21:26 | ED.ABDPAIN ---
HPI - Abdominal Pain General Chief Complaint: Abdominal Pain Stated Complaint: abd pain Time Seen by Provider: 01/06/20 21:19 History of Present Illness HPI narrative: Patient presents with acute right lower quadrant pain while playing ball with her son and she threw a ball and felt a sharp quick pain in her right lower quadrant. She had a tubal ligation 4 weeks ago after the delivery of her vaginally. She bled for couple weeks it stopped now she is bleeding again. She also wanted to talk to her CLOTH SHRINKING MACHINE OPERATOR HELPER about depression, and want some treatment for that. She has no pain currently. MD elicited complaint: abdominal pain Pertinent past history: other (Recent tubal ligation) Onset (ago): hour(s) Pain Consistency: intermittent and now resolved Location: RLQ Related Data Allergies Allergy/AdvReac Type Severity Reaction Status Date / Time sulfamethoxazole Allergy Mild Hives Verified 01/06/20 21:12 clindamycin Allergy Unknown Hives Verified 01/06/20 21:12 Sulfa (Sulfonamide Allergy Unknown Hives Verified 01/06/20 21:12 Antibiotics) sulfamethizole Allergy Unknown Hives Verified 01/06/20 21:12 trimethoprim Allergy Unknown Hives Verified 01/06/20 21:12 Review of Systems Review of Systems: Narrative: CONSTITUTIONAL: Denies fever, chills, or sweats. EYES: Denies visual changes, redness, or discharge. ENT: Denies rhinorrhea, congestion, sore throat, or otalgia. CARDIOVASCULAR: Denies chest pain, palpitations, or edema. RESPIRATORY: Denies cough or dyspnea. GASTROINTESTINAL: Denies abdominal pain, nausea, vomiting, or diarrhea. GENITOURINARY: Denies dysuria or hematuria. SKIN: Denies rash or itching. MUSCULOSKELETAL: Denies back pain, joint pain, or myalgia. NEUROLOGIC: Denies headache, numbness, or weakness. PSYCHIATRIC: She complains of depression. [facility] Past Medical History Medical History Healthy adult Post depression Surgical History Surgical History (Updated 01/06/20 @ 21:29 by Romy Tipton MD) History of tubal ligation Social History Social History Smoking status: Never smoker Alcohol intake: never Substance use: never Substance use type: does not use Gender identity (if verbalized by the patient): Female Spiritual care concerns: No Agree to blood products: Yes Exam Narrative: Exam Narrative: GENERAL: Well-appearing, well-nourished, and in no acute distress. Crying but beautiful red hair. HEAD: Normocephalic, atraumatic. EYES: PERRLA and EOMI. ENT: Nares clear, no rhinorrhea or epistaxis. Mucous membranes moist. NECK: Supple. CHEST: Clear to auscultation. No respiratory distress. HEART: Regular rate and rhythm. No murmur heard. Normal peripheral pulses. ABDOMEN: Soft, nontender, nondistended, normal active bowel sounds. EXTREMITIES: Normal range of motion. No edema. SKIN: Warm, dry, no rash. NEURO: No focal deficits. Alert and oriented x3. PSYCH: Crying and laughing. Course Reevaluation(s) Reevaluation #1: I explained to the patient that we were going to start her on the Zoloft, which she appreciate, but then she went on with how long will take to heal up her abdomen. I told her to follow-up with [employer]OTH SHRINKING MACHINE OPERATOR HELPER this week. Date: 01/06/20 Time: 21:41 Consultations Consultation #1: Call Dr. Guaman her CLOTH SHRINKING MACHINE OPERATOR HELPER. Dr. Can is on-call for her. He recommends starting Zoloft. We will see her in the office this week. Date: 01/06/20 Time: 21:31 Vital Signs Vital signs: Vital Signs Temperature 98.3 F 01/06/20 20:34 Pulse Rate 97 01/06/20 20:34 Respiratory Rate 14 01/06/20 20:34 Blood Pressure 113/65 01/06/20 20:34 Pulse Oximetry 100 01/06/20 20:34 Temperature 98.3 F 01/06/20 20:34 Pulse Rate 88 01/06/20 21:13 Respiratory Rate 18 01/06/20 21:13 Blood Pressure 109/56 L 01/06/20 21:13 Pulse Oximetry 98 01/06/20 21:13 MDM - Abdominal Pain L
[2020-01-06 21:54] VITALS: BP 103/63; PULSE 82; RESP 16; O2SAT 100
== END 2020-01-06 21:55 | disposition home or self-care (01) ==
PROVIDERS: Emergency Provider Emergency Medicine; PCP Emergency Medicine
DX: R10.31 Right lower quadrant pain (principal); O99.345 Other mental disorders complicating the puerperium; F53.0 Postpartum depression
CPT/HCPCS: 36415; 80053; 81001; 81025; 83690; 85025; 87086; 99283

== ENCOUNTER 2020-09-10 12:13 | Outpatient (CLI) | payer OTHER, SELFPAY ==
--- NOTE | ~2020-09-10 | US_ITS ---
EXAMINATION: US pelvic complete w TV DATE: 09/10/2020 13:17 INDICATION: Irregular bleeding Comparison:11/18/2019 TECHNIQUE: Multiple transabdominal and endovaginal sonographic images of the pelvis performed. FINDINGS: The uterus measures 9.7 x 6.3 x 5.2 cm. There are mildly prominent vessels adjacent to the uterus. The endometrial complex measures 1.7 cm. The right ovary measures 2.7 x 2.1 x 2.6 cm and the left ovary measures 2.3 x 1.7 x 1.4 cm. There ar e small follicles in each ovary. Normal doppler signal in both ovaries. There is no free fluid in the pelvis. There are no abnormal masses seen on either side. IMPRESSION: 1. Endometrial thickening measuring 1.7 cm. Reviewed, dictated and finalized at location A.
== END 2020-09-10 12:14 | disposition home or self-care (01) ==
PROVIDERS: PCP Emergency Medicine; Visit Provider Obstetrics & Gynecology
DX: N92.6 Irregular menstruation, unspecified (principal)
CPT/HCPCS: 76830; 76856

== ENCOUNTER 2020-09-14 13:36 | Outpatient (CLI) | payer OTHER, SELFPAY ==
[2020-09-14 14:19] LABS: Hematocrit 41.7 % (37.0-47.0); Hemoglobin 13.5 g/dL (12.0-15.0); Mean Corpuscular HGB Conc 32.4 g/dl (32-36); Mean Corpuscular Hemoglobin 29.4 pg (26-34); Mean Corpuscular Volume 90.8 fl (80-100); Mean Platelet Volume 11.1 fl (7.4-10.4); Platelet Count Result 246 k/mm3 (150-375); Red Blood Count 4.59 M/mm3 (4.2-5.4); Red Cell Distribution Width 13.4 % (11.5-14.5)
[2020-09-14 15:40] LABS: Thyroid Stimulating Hormone Reflex 0.883 uIU/mL (0.465-4.68)
== END 2020-09-14 13:37 | disposition home or self-care (01) ==
PROVIDERS: Visit Provider Obstetrics & Gynecology
DX: N92.0 Excessive and frequent menstruation with regular cycle (principal)
CPT/HCPCS: 36415; 84443; 85027

== ENCOUNTER 2021-05-06 10:56 | Outpatient (CLI) | payer OTHER, SELFPAY ==
[2021-05-06 20:19] LABS: Hepatitis B Surface Antigen Negative (Negative)
[2021-05-06 20:27] LABS: HIV 1/2 Ab P24 Ag Result Negative (Negative)
[2021-05-06 20:36] LABS: Hepatitis C Virus Antibody Negative (Negative)
[2021-05-07 06:26] LABS: Rapid Plasma Reagin Non-Reactive (NonReactive)
[2021-05-09 13:02] LABS: HSV 1 IgM Screen Negative (Negative); HSV 2 IgM Screen Negative (Negative)
== END 2021-05-06 10:57 | disposition home or self-care (01) ==
LOC: ANHBWCLAB 10:57
PROVIDERS: Visit Provider Obstetrics & Gynecology
DX: Z11.3 Encounter for screening for infections with a predominantly sexual mode of transmission (principal); Z11.4 Encounter for screening for human immunodeficiency virus [HIV]
CPT/HCPCS: 36415; 86592; 86695; 86696; 86703; 86803; 87340; G0432

== ENCOUNTER 2021-05-25 09:05 | Emergency (ER) | payer OTHER, SELFPAY ==
[2021-05-25 09:09] VITALS: BP 124/69; PULSE 78; RESP 17; TEMP 36.3; O2SAT 100
[2021-05-25 11:16] VITALS: BP 124/78; PULSE 62; RESP 18; TEMP 36.9; O2SAT 99
--- NOTE | 2021-05-25 11:43 | ED.ABDPAIN ---
HPI - Abdominal Pain General Chief Complaint: Abdominal Pain Stated Complaint: stomach pain and headache Time Seen by Provider: 05/25/21 11:33 Source: patient History of Present Illness HPI narrative: 30-year-old female presented to the emergency department for evaluation of 4 days of associated nausea vomiting diarrhea and headache. Patient states that her symptoms did improve over a short period of time on Monday but then worsened and are associate with diarrhea. Patient denies any blood in her stool. Patient denies any other sick contacts. Related Data Allergies Allergy/AdvReac Type Severity Reaction Status Date / Time sulfamethoxazole Allergy Mild Hives Verified 05/06/21 10:11 clindamycin Allergy Unknown Hives Verified 05/06/21 10:11 Sulfa (Sulfonamide Allergy Unknown Hives Verified 05/06/21 10:11 Antibiotics) sulfamethizole Allergy Unknown Hives Verified 05/06/21 10:11 trimethoprim Allergy Unknown Hives Verified 05/06/21 10:11 Review of Systems Review of Systems: CONSTITUTIONAL: Denies fever, chills, or sweats. EYES: Denies visual changes, redness, or discharge. ENT: Denies rhinorrhea, congestion, sore throat, or otalgia. CARDIOVASCULAR: Denies chest pain, palpitations, or edema. RESPIRATORY: Denies cough or dyspnea. GASTROINTESTINAL: Left upper quadrant abdominal pain with associated nausea vomiting diarrhea GENITOURINARY: Denies dysuria or hematuria. SKIN: Denies rash or itching. MUSCULOSKELETAL: Denies back pain, joint pain, or myalgia. NEUROLOGIC: Denies headache, numbness, or weakness. PSYCHIATRIC: Denies anxiety or depression. [facility] Past Medical History Medical History Acid reflux HSV (herpes simplex virus) infection Type 1 Post depression Vaginal delivery x4 Surgical History Surgical History History of tubal ligation 11/28/19 Family History Family History Mother Hypertension Breast cancer Social History Social History Smoking status: Never smoker Alcohol intake: never Substance use: never Substance use type: does not use Gender identity (if verbalized by the patient): Female Spiritual care concerns: No Agree to blood products: Yes Exam Narrative: APPEARANCE: Well appearing, no pain in distress, well-nourished. Head normocephalic atraumtaic. EYES: PERRLA/EOMI, conjunctivae very clear. NOSE: Normal no drainage EARS:TMS clear Rosa Orellana, with good light reflex. THROAT: Minor erythema, no swelling. NECK: Supple. No adenopathy, no masses. RESPIRATORY: Airway patent, repsirations nonlabored. Clear to auscultation bilaterally, no rales, rhonchi, wheezing. CARDIOVASCULAR: Regular rate and rhythm without murmurs rubs or gallops. ABDOMINAL: Soft, nontender, nondistended, no hepatosplenomegally MUSCULOSKELETAl: Moves all extremities. Strenght/ROM intact, No edema, No calf tenderness. NEURO: Alert. Cranial nerves II through XII intact. Good gait. Good coordination SKIN:: Warm, dry. Normal Color PSYCHIATRIC: Normal affect/mood, normal interaction with parents. Course Course Emergency Course: Patient was updated on the results of her work-up. Patient did feel improved with treatment while in the emergency department. Patient had been taking Tylenol and ibuprofen for initial left upper quadrant/stomach upset and this seemed to worsen her symptoms. Patient was advised to stop taking ibuprofen and was started on Prilosec for 14 days. Patient was also provided Zofran for nausea control. Patient was started on antibiotics for a suspected urinary tract infection. Patient was comfortable with the plan for discharge and close follow-up. All questions and concerns were addressed. Patient was in no distress and was improved at time of discharge from the emergency departme
[2021-05-25 11:58] LABS: Add Urine Microscopic? YES; Appearance Urine Cloudy (Clear); Bilirubin Urine Negative (Negative); Blood Urine 1+ (Negative); Color Urine Yellow (Yellow); Glucose Urine UA Negative (Negative); Ketones Urine Negative (Negative); Leukocyte Esterase Ur 2+ LEU/UL (Negative); Nitrate Urine Negative (Negative); Protein Urine Negative (Negative); Specific Grav Ur 1.008 (1.001-1.035); Squamous Epithelial Cell Urine Many /hpf (Few); Urobilinogen Urine Negative mg/dL (<2.0); WBC Urine 16-20 /hpf
[2021-05-25] MEDS: SODIUM CHLORIDE 0.9% IV 1,000 ML 999 ML IV CONT (12:06)
[2021-05-25] MEDS: ONDANSETRON INJ 4 MG/2 ML VIAL IV PUSH (12:07)
[2021-05-25 12:19] LABS: Basophils Percent Auto 0.3 % (0.2-1.2); Eosinophils Percent Auto 0.2 % (0-4.4); Hematocrit 40.3 % (37.0-47.0); Hemoglobin 13.4 g/dL (12.0-15.0); Immature Granulocyte Absolute 0.01 K/mm3 (0.00-0.031); Immature Granulocyte Percent A 0.2 % (0-0.5); Lymphocytes Absolute Auto 1.31 K/mm3 (0.9-3.2); Lymphocytes Percent Auto 20.4 % (18.3-44.2); Mean Corpuscular HGB Conc 33.3 g/dl (32-36); Mean Corpuscular Hemoglobin 28.8 pg (26-34); Mean Corpuscular Volume 86.5 fl (80-100); Mean Platelet Volume 10.6 fl (7.4-10.4); Monocytes Absolute Auto 0.4 K/mm3 (0.1-0.6); Monocytes Percent Auto 5.5 % (2.6-8.5); Neutrophils Absolute Auto 4.7 K/mm3 (1.3-6.7); Neutrophils Percent Auto 73.4 % (45.5-73.1); Platelet Count Result 211 k/mm3 (150-375); Red Blood Count 4.66 M/mm3 (4.2-5.4); Red Cell Distribution Width 13.7 % (11.5-14.5); White Blood Count 6.4 K/mm3 (4.5-10.0)
[2021-05-25 12:48] LABS: Anion Gap 8 mmol/L (8-16); Blood Urea Nitrogen 11 mg/dL (7-17); Calcium 9.2 mg/dL (8.4-10.2); Carbon Dioxide 26 mmol/L (22-30); Chloride 104 mmol/L (98-107); Estimated CRCL calculation 89 ml/min; Estimated Glomerular Filt Rate > 60; Glucose 108 mg/dL (65-110); Lipase 64 U/L (23-300); Potassium 3.9 mmol/L (3.4-5.0); Sodium 138 mmol/L (137-145)
[2021-05-25 14:13] VITALS: BP 109/54; PULSE 54; RESP 18; TEMP 36.3; O2SAT 100
[2021-05-26 20:26] LABS: SARS-CoV-2 RNA PCR Negative
== END 2021-05-25 14:16 | disposition home or self-care (01) ==
PROVIDERS: Emergency Medicine; Emergency Provider Emergency Medicine
DX: N30.00 Acute cystitis without hematuria (principal); Z20.822 Contact with and (suspected) exposure to COVID-19; K29.00 Acute gastritis without bleeding; K21.9 Gastro-esophageal reflux disease without esophagitis
CPT/HCPCS: 36415; 80048; 81001; 81025; 83690; 85025; 87086; 96361; 96374; 99284; C9803; J2405; J7030; U0003; U0005

== ENCOUNTER 2022-04-13 13:37 | Outpatient (CLI) | payer OTHER, SELFPAY ==
[2022-04-13 14:46] LABS: HIV 1/2 Ab P24 Ag Result Negative (Negative)
[2022-04-13 15:06] LABS: Rapid Plasma Reagin Non-Reactive (NonReactive)
[2022-04-13 15:36] LABS: Hepatitis B Surface Antigen Negative (Negative)
[2022-04-13 15:54] LABS: Hepatitis C Virus Antibody Negative (Negative)
== END 2022-04-13 13:38 | disposition home or self-care (01) ==
LOC: ANHLAB 13:38
PROVIDERS: Visit Provider Obstetrics & Gynecology
DX: Z20.2 Contact with and (suspected) exposure to infections with a predominantly sexual mode of transmission (principal)
CPT/HCPCS: 36415; 86592; 86703; 86803; 87340; G0432

== ENCOUNTER 2022-05-30 17:53 | Emergency (ER) | payer OTHER, SELFPAY ==
[2022-05-30 18:00] VITALS: BP 115/60; PULSE 67; RESP 16; TEMP 36.5; O2SAT 99
--- NOTE | 2022-05-30 18:06 | ED.FEMALEGU ---
HPI - Female Genitourinary General Chief complaint: Urogenital-Female Stated complaint: UTI Time Seen by Provider: 05/30/22 18:09 Source: patient, RN notes reviewed and old records reviewed Mode of arrival: ambulatory Limitations: no limitations History of Present Illness HPI Narrative: 31-year-old female presents to the [facility] with urinary symptoms. Started with mild symptoms yesterday. About 1 hour prior to arrival she had to leave for because of burning, bladder spasms. Denies fevers. No nausea vomiting or diarrhea. Onset (ago): day(s) (1) Possible : other (Tubal) Related Data Allergies Allergy/AdvReac Type Severity Reaction Status Date / Time sulfamethoxazole Allergy Mild Hives Verified 04/13/22 13:01 clindamycin Allergy Unknown Hives Verified 04/13/22 13:01 Sulfa (Sulfonamide Allergy Unknown Hives Verified 04/13/22 13:01 Antibiotics) sulfamethizole Allergy Unknown Hives Verified 04/13/22 13:01 trimethoprim Allergy Unknown Hives Verified 04/13/22 13:01 Review of Systems Review of Systems: All systems reviewed & are unremarkable except as noted in HPI and below Constitutional: Constitutional: Reports no additional constitutional complaints Eyes: Eyes: Reports no additional eye complaints ENT: Reports system reviewed and no additional complaints, except as documented Cardiovascular: Cardiovascular: Reports no additional cardiovascular complaints, Denies chest pain and Denies dyspnea Respiratory: Respiratory: Reports no additional respiratory complaints, Denies chest congestion, Denies cough and Denies dyspnea Gastrointestinal: Gastrointestinal: Reports no additional gastrointestinal complaints, Denies abdominal pain, Denies nausea and Denies vomiting Genitourinary: Genitourinary: Reports as per HPI and Reports dysuria Musculoskeletal: Musculoskeletal: Reports no additional musculoskeletal complaints Integumentary/Breasts: Skin/Breast: Reports system reviewed and no additional complaints, except as docu Neurologic: Reports system reviewed and no additional complaints, except as documented Psychiatric: Psychiatric: Reports no additional psychiatric complaints Allergic/Immunologic: Allergic/Immunologic: Reports no additional allergic/immunologic complaints PMFSH Past Medical History Medical History Abnormal Pap smear of cervix 08/30/21, LSIL, HPV pos Acid reflux HSV (herpes simplex virus) infection Type 1 Post depression Vaginal delivery x4 Surgical History Surgical History History of tubal ligation 11/28/19 Family History Family History Mother Hypertension Breast cancer Social History Social History Smoking status: Never smoker Alcohol intake: never Substance use: never Substance use type: does not use Gender identity (if verbalized by the patient): Female Spiritual care concerns: No Agree to blood products: Yes Comments At the time of my signature, I reviewed and agree with the nursing past medical, surgical, social, and family history. There is no relevant family history pertinent to the patient complaint. Exam Const: General: cooperative, healthy appearing, well developed, alert, uncomfortable and well nourished Nutritional Appearance: well nourished Orientation/consciousness: patient oriented x3 Limitations: no limitations HENMT: Head: normal to inspection Ears: hearing grossly normal bilaterally and external ears normal Face/Nose/Sinus: Normal external nose present, Normal nares present, Normal nasal mucous membranes and turbinates present and normal facial exam Face and sinus: normal facial exam Mouth: Yes Normal oral and palatal mucosa present, Yes lip normal and Yes moist mucous membranes Throat: posterior oropharynx normal an
== END 2022-05-30 18:20 | disposition home or self-care (01) ==
PROVIDERS: Emergency Provider Nurse Practitioner
DX: N39.0 Urinary tract infection, site not specified (principal); K21.9 Gastro-esophageal reflux disease without esophagitis
CPT/HCPCS: 81003; 87077; 87086; 87186; 99213; G0463

== ENCOUNTER 2022-07-25 12:34 | Outpatient (CLI) | payer OTHER, SELFPAY ==
[2022-07-25 21:12] LABS: Alanine Aminotransferase 17 U/L (6-35); Albumin Level 4.4 g/dL (3.5-5.1); Alkaline Phosphatase 68 U/L (38-126); Anion Gap 4 mmol/L (8-16); Aspartate Amino Transferase 45 U/L (14-36); Bilirubin,Total 0.7 mg/dL (0.2-1.3); Blood Urea Nitrogen 15 mg/dL (7-17); Carbon Dioxide 29 mmol/L (22-30); Chloride 103 mmol/L (98-107); Cholesterol 165 mg/dL (0-200); Estimated Glomerular Filt Rate > 60; Glucose 83 mg/dL (65-110); HDL Direct 52 mg/dL; Potassium 4.3 mmol/L (3.4-5.0); Sodium 136 mmol/L (137-145); Triglycerides 41 mg/dL (<150)
[2022-07-25 21:22] LABS: LDL Cholesterol Direct 80 mg/dL
[2022-07-25 21:39] LABS: Hematocrit 41.7 % (37.0-47.0); Hemoglobin 13.7 g/dL (12.0-15.0); Mean Corpuscular HGB Conc 32.9 g/dl (32-36); Mean Corpuscular Hemoglobin 30.9 pg (26-34); Mean Corpuscular Volume 93.9 fl (80-100); Mean Platelet Volume 12.5 fl (7.4-10.4); Platelet Count Result 213 k/mm3 (150-375); Red Blood Count 4.44 M/mm3 (4.2-5.4); Red Cell Distribution Width 13.5 % (11.5-14.5); White Blood Count 8.7 K/mm3 (4.5-10.0)
[2022-07-25 21:42] LABS: Thyroid Stimulating Hormone 0.414 uIU/mL (0.465-4.680)
== END 2022-07-25 12:35 | disposition home or self-care (01) ==
LOC: ANHGOSHLAB 12:35
PROVIDERS: PCP Family Medicine; Visit Provider Family Medicine
DX: E66.3 Overweight (principal); Z79.899 Other long term (current) drug therapy
CPT/HCPCS: 36415; 80053; 80061; 84443; 85027

== ENCOUNTER 2022-12-13 11:36 | Outpatient (CLI) | payer OTHER, SELFPAY ==
[2022-12-13 18:13] LABS: Alanine Aminotransferase 21 U/L (6-35); Albumin Level 4.6 g/dL (3.5-5.1); Alkaline Phosphatase 75 U/L (38-126); Anion Gap 7 mmol/L (8-16); Aspartate Amino Transferase 29 U/L (14-36); Bilirubin,Total 0.7 mg/dL (0.2-1.3); Blood Urea Nitrogen 16 mg/dL (7-17); Calcium 9.5 mg/dL (8.4-10.2); Carbon Dioxide 28 mmol/L (22-30); Chloride 104 mmol/L (98-107); Estimated Glomerular Filt Rate > 60; Glucose 97 mg/dL (65-110); Potassium 4.6 mmol/L (3.4-5.0); Sodium 139 mmol/L (137-145)
[2022-12-13 19:05] LABS: Thyroid Stimulating Hormone 0.808 uIU/mL (0.465-4.680)
== END 2022-12-13 11:37 | disposition home or self-care (01) ==
LOC: ANHGOSHLAB 11:38
PROVIDERS: PCP Family Medicine; Visit Provider Family Medicine
DX: R79.89 Other specified abnormal findings of blood chemistry (principal); Z79.899 Other long term (current) drug therapy
CPT/HCPCS: 36415; 80053; 84439; 84443

== ENCOUNTER 2023-03-27 08:29 | Outpatient (CLI) | payer OTHER, SELFPAY ==
[2023-03-27 10:18] LABS: HIV 1/2 Ab P24 Ag Result Negative (Negative)
[2023-03-27 12:41] LABS: Rapid Plasma Reagin Non-Reactive (NonReactive)
[2023-03-27 13:49] LABS: Hepatitis C Virus Antibody Negative (Negative)
== END 2023-03-27 08:30 | disposition home or self-care (01) ==
LOC: ANHLAB 08:30
PROVIDERS: PCP Family Medicine; Visit Provider Registered Nurse
DX: Z11.3 Encounter for screening for infections with a predominantly sexual mode of transmission (principal)
CPT/HCPCS: 36415; 86592; 86695; 86696; 86703; 86803; G0432

== ENCOUNTER 2023-07-19 10:50 | Outpatient (CLI) | payer OTHER, SELFPAY ==
[2023-07-19 12:21] LABS: HIV 1/2 Ab P24 Ag Result Negative (Negative)
[2023-07-19 12:29] LABS: Hepatitis C Virus Antibody Negative (Negative)
[2023-07-19 16:00] LABS: Rapid Plasma Reagin Non-Reactive (NonReactive)
[2023-07-23 03:39] LABS: Hepatitis Be Antigen Nonreactive
== END 2023-07-19 10:51 | disposition home or self-care (01) ==
LOC: ANHLAB 10:51
PROVIDERS: PCP Family Medicine; Visit Provider Registered Nurse
DX: Z11.8 Encounter for screening for other infectious and parasitic diseases (principal)
CPT/HCPCS: 36415; 86592; 86703; 86803; 87350; G0432

== ENCOUNTER 2024-02-15 10:15 | Outpatient (CLI) | payer OTHER, SELFPAY ==
[2024-02-15 12:22] LABS: Hematocrit 40.7 % (37.0-47.0); Hemoglobin 12.9 g/dL (12.0-15.0); Mean Corpuscular HGB Conc 31.7 g/dl (32-36); Mean Corpuscular Hemoglobin 29.1 pg (26-34); Mean Corpuscular Volume 91.9 fl (80-100); Mean Platelet Volume 11.8 fl (7.4-10.4); Platelet Count Result 218 k/mm3 (150-375); Red Blood Count 4.43 M/mm3 (4.2-5.4); Red Cell Distribution Width 13.2 % (11.5-14.5); White Blood Count 8.2 K/mm3 (4.5-10.0)
[2024-02-15 13:15] LABS: Thyroid Stimulating Hormone 0.996 uIU/mL (0.465-4.680)
[2024-02-15 13:54] LABS: Iron 77 ug/dL (37-170)
[2024-02-15 14:03] LABS: Percent Iron Saturation 23 % (20-50)
== END 2024-02-15 10:16 | disposition home or self-care (01) ==
LOC: ANHGOSHLAB 10:16
PROVIDERS: PCP Family Medicine; Visit Provider Nurse Practitioner
DX: R53.83 Other fatigue (principal)
CPT/HCPCS: 36415; 82607; 83540; 83550; 84443; 85027

== ENCOUNTER 2024-03-28 09:09 | Outpatient (CLI) | payer OTHER, SELFPAY ==
[2024-03-28 14:51] LABS: Hematocrit 40.6 % (37.0-47.0); Mean Corpuscular Hemoglobin 29.7 pg (26-34); Mean Corpuscular Volume 92.7 fl (80-100); Mean Platelet Volume 11.9 fl (7.4-10.4); Platelet Count Result 202 k/mm3 (150-375); Red Blood Count 4.38 M/mm3 (4.2-5.4); Red Cell Distribution Width 13.6 % (11.5-14.5); White Blood Count 8.3 K/mm3 (4.5-10.0)
[2024-03-28 15:03] LABS: Alanine Aminotransferase 12 U/L (6-35); Albumin Level 4.1 g/dL (3.5-5.1); Alkaline Phosphatase 60 U/L (38-126); Anion Gap 5 mmol/L (4-12); Aspartate Amino Transferase 35 U/L (14-36); Bilirubin,Total 0.3 mg/dL (0.2-1.3); Blood Urea Nitrogen 14 mg/dL (7-17); Calcium 8.9 mg/dL (8.4-10.2); Carbon Dioxide 32 mmol/L (22-30); Chloride 100 mmol/L (98-107); Estimated Glomerular Filt Rate > 60; Glucose 79 mg/dL (65-110); Potassium 4.3 mmol/L (3.4-5.0); Sodium 137 mmol/L (137-145)
[2024-03-28 15:18] LABS: Thyroid Stimulating Hormone 0.468 uIU/mL (0.465-4.680)
== END 2024-03-28 09:10 | disposition home or self-care (01) ==
LOC: ANHGOSHLAB 09:10
PROVIDERS: PCP Nurse Practitioner; Visit Provider Family Medicine
DX: R74.8 Abnormal levels of other serum enzymes (principal); R79.89 Other specified abnormal findings of blood chemistry; Z79.899 Other long term (current) drug therapy
CPT/HCPCS: 36415; 71046; 80053; 84443; 85027

== ENCOUNTER 2024-03-28 09:41 | Outpatient (CLI) | payer OTHER, SELFPAY ==
--- NOTE | ~2024-03-28 | XR_ITS ---
Clinical Indication: Chest pain PA and lateral views of the chest: Comparison: None Findings: The lungs are clear, without evidence of focal consolidation or pleural effusion. Cardiome diastinal silhouette is within normal limits. Bones and soft tissues are unremarkable. Impression: Normal chest. Reviewed, dictated and finalized at location . Impression: Normal chest.
== END 2024-03-28 09:42 | disposition home or self-care (01) ==
PROVIDERS: PCP Nurse Practitioner; Visit Provider Nurse Practitioner
DX: R07.9 Chest pain, unspecified (principal)
CPT/HCPCS: 71046

== ENCOUNTER 2024-04-08 12:42 | Outpatient (CLI) | payer OTHER, SELFPAY ==
--- NOTE | ~2024-04-08 | US_ITS ---
EXAMINATION: US soft tissue UE RT DATE: 04/08/2024 13:22 INDICATION: Localized swelling, mass and lump, right upper limb. TECHNIQUE: Multiple grayscale and Doppler ultrasound images of the right upper limb were obtained. COMPARISON: None FINDINGS: There is no abnormal mass in the right upper limb in the patient's area of concern. IMPRESSION: 1. No abnormal mass in the right upper limb in the patient's area of concern. Reviewed, dictated and finalized at location A.
--- NOTE | ~2024-04-08 | US_ITS ---
EXAMINATION: US soft tissue LE RT DATE: 04/08/2024 13:22 INDICATION: Localized swelling, mass and lump, right lower leg. TECHNIQUE: Multiple grayscale and Doppler ultrasound images of the right lower limb were obtained. COMPARISON: None FINDINGS: In the anterior right lower leg in the patient's area of concern, there is a 4 mm hypoechoi c subcutaneous mass. IMPRESSION: 1. 4 mm subcutaneous mass in the anterior right lower leg in the patient's area of concern, most like ly inflammation or a hematoma given the location. Reviewed, dictated and finalized at location A. IMPRESSION: 1. 4 mm subcutaneous mass in the anterior right lower leg in the patient's area of concern, most likely inflammation or a hematoma given the location.
== END 2024-04-08 12:43 | disposition home or self-care (01) ==
LOC: ANHIMG 12:46
PROVIDERS: PCP Nurse Practitioner; Visit Provider Family Medicine
DX: R22.9 Localized swelling, mass and lump, unspecified (principal)
CPT/HCPCS: 76882

== ENCOUNTER 2024-08-07 09:31 | Outpatient (CLI) | payer OTHER, SELFPAY ==
--- OUTSIDE RECORDS SUMMARY | 2024-08-07 09:38 | XMS_ITS | Patient Health Summary ---
Author Organization [facility] Address [address] [place] [address] Care Team Providers Care Railroad Track Repair Supervisor Name Role Phone Unknown, Provider Primary Care Provider Unavaila ble Note from [facility],non-owned Affiliates and Associated Physician Practices is amultiple site organization consisting of ambulatory clinics and hospital sitesin [place], [place], [place] and [place]. This disclosure is being madepursuant to the Care Everywhere program and may not contain all information available regarding this patient. Last updated 18.[facility] Allergies * Sulfamethoxazole W-Trimethoprim * Clindamycin Medications * Be aware that medications may not be up to date on this document. Alwaysverify current medications with the patient. * Calcium-Vitamin D-Vitamin K (CALCIUM + D + K PO) * Vit-Fe Fumarate-FA ( VITAMIN) 27-0.8 MG tablet Take 1 Tab by mouth once daily * methylPREDNISolone (MEDROL DOSEPAK) 4 MG tablet(Started 07/07/2016) 1 dose pack PO as directed on package * ciprofloxacin 0.3% (CILOXAN) 0.3 % ophthalmic solution(Started 07/07/2016) 2 gtt to R eye q2h while awake x2 days, then q4h x5 days Active Problems Problem Noted Date Diagnosed Date cardiac echogenic focus 03/03/2017 Supervision of normal in [facility] 03/03/2017 Social History Tobacco Use Types Packs/Day Years Used Date Smoking Tobacco: Never Sex and Gender Information Value Date Recorded Sex Assigned at Not on file Gender Identity Not on file Sexual Orientation Not on file Last Filed Vital Signs Vital Sign Reading Time Taken Comments Blood Pressure 106/68 07/07/2016 12:06 PM SOLAR THERMAL TECHNICIAN Pulse 78 07/07/2016 12:06 PM SOLAR THERMAL TECHNICIAN Temperature 36.8 C (98.2 F) 07/07/2016 12:06 PM SOLAR THERMAL TECHNICIAN Respiratory Rate 18 07/07/2016 12:06 PM SOLAR THERMAL TECHNICIAN Oxygen Saturation - - Inhaled Oxygen Concentration - - Weight 63.5 kg (140 lb) 07/07/2016 12:06 PM SOLAR THERMAL TECHNICIAN Height 162.6 cm (5' 4 ) 07/07/2016 12:06 PM SOLAR THERMAL TECHNICIAN Body Mass Index 24.03 07/07/2016 12:06 PM SOLAR THERMAL TECHNICIAN Procedures * SONOGRAM - COMPLETE(Performed 03/03/2017) Performed for Encounter for ultrasound to check growth (HCC) * SONOGRAM - COMPLETE(Performed 02/07/2017) Performed for Small for dates affecting management of mother, third trimester, not applicable or unspecified fetus (HCC) * SONOGRAM - COMPLETE(Performed 01/10/2017) * STREP A SCREEN - POINT OF CARE (AMB) STL(Performed 07/07/2016) Performed for Acute pharyngitis, unspecified etiology Results * SONOGRAM - COMPLETE (03/03/2017 12:23 PM CDT) Only the most recent of3 resultswithin the time period is included. Anatomical Region Laterality Modality Other 03/03/2017 12:2 3 PM CDT Narrative 03/03/2017 1:22 PM CDT [facility] PHONE: FAX: Theresa. Name: SOCORRO NEWELL. No: [id number] Study Date: 03/03/2017 12:23pm , Age: 01 1990, 26 Pregnancies: 2, Para 1 Height: 64 in Weight: 120 lb LMP: Unknown GA by 1st: 32w3d GA by US: 32w4d GA Selected: 32w3d (From Known E) TODD: 04/25/2017 Referring MD: MD Suma, [facility] Special Services Coordinator: Joslyn Moreno RDMS BMI: 20.6 Hist/Ind: Growth EIF, <1:7K screening risk of trisomy 21 MEASUREMENTS & AGE GROWTH EVALUATION Measurement GA Range Srce %for GA Ratios ----- ---- ------- BPD 8.0 cm 32w1d ([id number]) Hadl BPD 45% FL/BPD 0.79 (0.71 - 0.87) HC 29.9 cm 33w1d (98e0n-57i4r) Hadl HC 60% FL/AC 0.21 (0.20 - 0.24) AC 29.4 cm 33w2d (22z1c-76d3m) Hadl AC 64% HC/AC 1.02 (0.95 - 1.14) FL 6.3 cm 32w4d (24n2a-77z5r) Hadl FL 52% CI 0.75 (0.70 - 0.86) HL 5.4 cm 31w4d (05d2v-63r9n) Angus HL 36% GA for sonogram 32w4d (37j4t-77x6d) Weight Estimate: based on (HL,BPD,HC,AC,FL) Avg Weight: 2090 gm ([id number]) Hadlo : 4lbs, 9oz Normal: 2043 gm (8285-3695) Hadlo Wt% 55% for 32w3d Heart Rate: 133 bpm Amniotic Fluid Index: 22.5cm (08.5-24.3) Q1: 6.1cm Q2: 6.8cm Q3: 5.8cm Q4: 3.9cm CLINICAL SUMMARY Study Number: 3 A single fetus is identified in cephalic presentation. The measurements today are consistent with appropriate growth compared to previous study. The TODD selected is based on a prior ultrasound examination. The amniotic fluid volume is within normal limits. The placenta is anterior. No major malformations are seen. The patient was advised that ultrasound does not allow detection of all structural or chromosomal abnormalities. IMPRESSION: Single live IUP at 32w3d Appropriate growth Normal AFV No major malformations are seen within the limitations of ultrasound Echogenic focus was not noted with today's ultrasound RECOMMEND: Follow up ultrasound as clinically indicated Thank you for allowing us the opportunity to care for your patient Kenrick Schrader MD <Electronic Signature> 03/03/2017 01:22pm Maryanne Braxton MD [facility] ORDERABLES * STREP A SCREEN - POINT OF CARE (AMB) STL (07/07/2016) Strep A Rapid POCT Negative Negative Strep A Internal Control Present Lot # [id number] Expiration Date 10/08/2016 Throat ENTIRE THROAT (SURFACE REGION OF NECK) / Unknown 07/07/2016 [facility] - POINT OF C ARE ORDERABLES Care Teams Railroad Track Repair Supervisor Relationship Specialty Start Date End Date Unknown, Provider PCP - General 07/07/16
--- OUTSIDE RECORDS SUMMARY | 2024-08-07 09:38 | XMS_ITS | Clinical Summary ---
Author Organization [facility] Address [address] [place] [address] Care Team Providers Care Soda Dry House Operator Name Role Phone Unknown, Provider Primary Care Provider Unavaila ble Source Comments [facility],non-owned Affiliates and Associated Physician Practices is amultiple site organization consisting of ambulatory clinics and hospital sitesin [place], [place], [place] and [place]. This disclosure is being madepursuant to the Care Everywhere program and may not contain all information available regarding this patient. Last updated 18.[facility] Allergies Active Allergy Reactions Criticality Noted Date Comments Sulfamethoxazole W-Trimethoprim 06/19 Clindamycin 07/07/2016 Medications * Be aware that medications may not be up to date on this document. Alwaysverify current medications with the patient. Medication Sig Dispensed Refills Start Date End Date Status Calcium-Vitamin D-Vitamin K (CALCIUM + D + K PO) Active Vit-Fe Fumarate-FA ( VITAMIN) 27-0.8 MG tablet Take 1 Tab by mouth once daily Active methylPREDNISolone (MEDROL DOSEPAK) 4 MG tablet 1 dose pack PO as directed on package 1 Each 07/07/2016 Active ciprofloxacin 0.3% (CILOXAN) 0.3 % ophthalmic solutionIndications:Oth er mucopurulent conjunctivitis of right eye 2 gtt to R eye q2h while awake x2 days, then q4h x5 days 10 mL 07/07/2016 Active Active Problems Patient Care Coordination No te Formatting of this note migh t be different from the original. NOPP-[facility] 12/2016 Problem Noted Date Diagnosed Date cardiac echogenic focus 03/03/2017 Supervision of normal in [facility] er 03/03/2017 Social History Tobacco Use Types Packs/Day Years Used Date Smoking Tobacco: Never Sex and Gender Information Value Date Recorded Sex Assigned at Not on file Gender Identity Not on file Sexual Orientation Not on file Last Filed Vital Signs Vital Sign Reading Time Taken Comments Blood Pressure 106/68 07/07/2016 12:06 PM [facility] Pulse 78 07/07/2016 12:06 PM [facility] Temperature 36.8 C (98.2 F) 07/07/2016 12:06 PM [facility] Respiratory Rate 18 07/07/2016 12:06 PM [facility] Oxygen Saturation - - Inhaled Oxygen Concentration - - Weight 63.5 kg (140 lb) 07/07/2016 12:06 PM [facility] Height 162.6 cm (5' 4 ) 07/07/2016 12:06 PM [facility] Body Mass Index 24.03 07/07/2016 12:06 PM [facility] Plan of Treatment Health Maintenance Due Date Last Done Comments PAP SMEAR 1992 HIV SCREENING 2007 HEPATITIS C SCREENING 07/01/2010 DTAP/TDAP/TD VACCINES (1 - Tdap) 2011 HEPATITIS B VACCINE (1 of 3 - 19+ 3-dose series) 2011 COVID-19 VACCINE ( - 2023-2 5 season) 2024 INFLUENZA VACCINE (#1) 2024 DEPRESSION SCREENING 06/19/2024 ZOSTER VACCINE (1 of 2) 2042 HIB VACCINE Aged Out No longer eligi ble based on patient's age to complete this topic HPV VACCINE Aged Out No longer eligi ble based on patient's age to complete this topic MENINGOCOCCAL (Group B) VACCINE Aged Out No longer eligible based on patient's age to complete this topic MENINGOCOCCAL VACCINE Aged Out No zeferino clay eligible based on patient's age to complete this topic PNEUMOCOCCAL VACCINE Aged Out No long er eligible based on patient's age to complete this topic Care Teams Soda Dry House Operator Relationship Specialty Start Date End Date Unknown, Provider PCP - General 07/07/16
--- OUTSIDE RECORDS SUMMARY | 2024-08-07 09:38 | XMS_ITS | Referral Summary ---
Author Organization [facility] Address [address] [place] [address] Care Team Providers Care Office Mover Name Role Phone Unknown, Provider Primary Care Provider Unavaila ble Source Comments [facility],non-owned Affiliates and Associated Physician Practices is amultiple site organization consisting of ambulatory clinics and hospital sitesin [place], [place], [place] and [place]. This disclosure is being madepursuant to the Care Everywhere program and may not contain all information available regarding this patient. Last updated 18.[facility] Allergies Active Allergy Reactions Criticality Noted Date [...] echogenic focus 03/03/2017 Supervision of normal in [facility] er 03/03/2017 Social History Tobacco Use Types Packs/Day Years Used Date Smoking Tobacco: Never Sex and Gender Information Value Date Recorded Sex Assigned at Not on file Gender Identity Not on file Sexual Orientation Not on file Last Filed Vital Signs Vital Sign Reading Time Taken Comments Blood Pressure 106/68 07/07/2016 12:06 PM [facility] Pulse 78 07/07/2016 12:06 PM [facility] Temperature 36.8 C (98.2 F) 07/07/2016 12:06 PM [facility] Respiratory Rate 18 07/07/2016 12:06 PM [facility] Oxygen Saturation - - Inhaled Oxygen Concentration - - Weight 63.5 kg (140 lb) 07/07/2016 12:06 PM [facility] Height 162.6 cm (5' 4 ) 07/07/2016 12:06 PM [facility] Body Mass Index 24.03 07/07/2016 12:06 PM [facility] Plan of Treatment Not on file Care Teams Office Mover Relationship Specialty Start Date End Date Unknown, Provider PCP - General 07/07/16
[2024-08-08 02:28] LABS: Prolactin 13.5 ng/mL
== END 2024-08-07 09:32 | disposition home or self-care (01) ==
PROVIDERS: PCP Nurse Practitioner Obstetrics & Gynecology; Visit Provider Nurse Practitioner Obstetrics & Gynecology
DX: N93.9 Abnormal uterine and vaginal bleeding, unspecified (principal)
CPT/HCPCS: 36415; 84146; 84443

== ENCOUNTER 2024-09-05 07:00 | Emergency (ER) | payer OTHER, SELFPAY ==
--- NOTE | ~2024-09-05 | CT_ITS ---
Non-contrast Head CT History: Head injury Technique: Axial non-contrast imaging of the brain was performed. Dose reduction technique was used on this scan by utilizing automated exposure control and iterative reconstruction technique. The dose -length product (DLP) was 529.67 mGy-cm. Findings: There is no evidence of intracranial hemorrhage, mass lesion, or acute infarct. Brain par enchyma appears normal. The ventricles and subarachnoid spaces are normal in size. The calvarium ap pears normal. The visualized paranasal sinuses and mastoid air cells are clear. Impression: No significant abnormality seen. Reviewed, dictated and finalized at location . Impression: No significant abnormality seen.
--- NOTE | ~2024-09-05 | CT_ITS ---
CT Facial Bones Clinical Indication: Injury Technique: Contiguous axial scans were obtained through the facial bones followed by coronal and sagi ttal reconstructions. Dose reduction technique was used on this scan by utilizing automated exposure control and iterative reconstruction technique. The dose-length product (DLP) was 310.31 mGy-cm. Findings: No fractures are identified. The visualized paranasal sinuses are clear. Intraorbital soft tissues appear normal. Impression: No fracture identified. Reviewed, dictated and finalized at location . Impression: No fracture identified.
[2024-09-05 07:01] VITALS: BP 129/79; PULSE 94; RESP 18; TEMP 36.4; O2SAT 100
--- OUTSIDE RECORDS SUMMARY | 2024-09-05 07:03 | XMS_ITS | Data Portability ---
[facility] Address [address] [place] [address] Assessment No assessment recorded. Plan of Treatment Reminders Order Date Submit Date Provider Last Modified By Organization Details Last Modified Time Details Appointments None recorded. Lab bacterial vaginosis + vaginitis panel, vaginal - Z11.3, Z20.0 2017 018 [facility], [address] [place] [address], [address], [place], [address], 8 16:22:55 HSV (1+2) DNA, qual, PCR, unspecifi ed specimen - Z11.3, Z20.2 2017 018 [facility], [address] [place] [address], [address], [place], [address], 8 16:22:56 culture, vaginal/r ectal, streptoco ccus group B - Z11.3, Z20.2 2017 018 [facility], [address] [place] [address], [address], [place], [address], 8 16:22:56 urinalysi s, dipstick 2017 Chante grant In-Office Order, Internal Use Only DO Not Attach Compendium DO Not Attach Compendium, Do Not Delete/merge, [id number] 8 13:29:54 test, urine 2017 018 juanita In-Office Order, Internal Use Only DO Not Attach Compendium DO Not Attach Compendium, Do Not Delete/merge, [id number] 8 13:29:54 pap, IG + HPV, cervical 2016 017 [facility], [address], [address], [address], 7 16:17:12 test, urine 2016 017 juanita In-Office Order, Internal Use Only DO Not Attach Compendium DO Not Attach Compendium, Do Not Delete/merge, [id number] 7 16:21:37 urinalysi s, dipstick 2016 017 juanita In-Office Order, Internal Use Only DO Not Attach Compendium DO Not Attach Compendium, Do Not Delete/merge, [id number] 7 16:21:37 bacterial vaginosis + vaginitis panel, vaginal - Z11.3 2016 017 [facility], [address], [address], [place], [address], 7 06:07:31 HSV (1+2) DNA, qual, PCR, unspecifi ed specimen - Z11.3 2016 017 [facility], [address], [address], [place], [address], 7 06:07:31 culture, vaginal/r ectal, streptoco ccus group B - Z11.3 2016 017 [facility], [address], [address], [place], [address], 7 06:07:32 urinalysi s, dipstick 2016 017 juanita In-Office Order, Internal Use Only DO Not Attach Compendium DO Not Attach Compendium, Do Not Delete/merge, [id number] 7 21:20:06 urinalysi s, dipstick 2016 017 brannonchristopher In-Office Order, Internal Use Only DO Not Attach Compendium DO Not Attach Compendium, Do Not Delete/merge, [id number] 7 21:18:32 urinalysi s, dipstick 2016 017 jaylen In-Office Order, Internal Use Only DO Not Attach Compendium DO Not Attach Compendium, Do Not Delete/merge, [id number] 7 16:21:46 Referral None recorded. Procedures None recorded. Surgeries None recorded. Imaging None recorded. Medication Orders calcium 600 mg (as carbonate )-vitamin D3 20 mcg (800 unit) tablet 2017 018 [id number], [address] [place] [address], [id number], 8 13:11:16 multivita min tablet 2017 018 [id number], [address] [place] [address], [id number], 8 13:11:16 Xulane 150 mcg-35 mcg/24 hr transderm al patch 2017 018 [id number], [address] [place] [address], [id number], 8 13:22:05 Depo-Prov era 150 mg/mL intramusc ular suspensio n 2016 juanita Not available 7 17:17:05 Patient TargetsNo targets recorded. Patient InstructionsNo instructions recorded. Reason for Referral None Reported. Results Created Date Observation Date Name Description Value Unit Range Abnormal Flag Note LastModifiedBy Organization Detail LastModifiedTime 12/01/19 18 11/30/2017 pregn sherri test, urine HCG negati ve Not Available In-Office Order Internal Use Only DO Not Attach Compendium DO Not Attach Compendium, Do Not Delete/merge, 11/30/2017 12:16:51 12/01/19 18 11/30/2017 urina lysis , dipst ick Leukocytes Negati ve Not Available In-Office Order Internal Use Only DO Not Attach Compendium DO Not Attach Compendium, Do Not Delete/merge, 11/30/2017 12:15:30 12/01/19 18 11/30/2017 urina lysis , dipst ick Nitrite negati ve Not Available In-Office Order Internal Use Only DO Not Attach Compendium DO Not Attach Compendium, Do Not Delete/merge, 11/30/2017 12:15:30 12/01/19 18 11/30/2017 urina lysis , dipst ick Urobilinogen .2 Not Available In-Of fice Order Internal Use Only DO Not Attach Compendium DO Not Attach Compendium, Do Not Delete/merge, 11/30/2017 12:15:30 12/01/19 18 11/30/2017 urina lysis , dipst ick Protein Negati ve Not Available In-Office Order Internal Use Only DO Not Attach Compendium DO Not Attach Compendium, Do Not Delete/merge, 11/30/2017 12:15:30 12/01/19 18 11/30/2017 urina lysis , dipst ick pH 6.5 Not Available In-Office Order Internal Use Only DO Not Attach Compendium DO Not Attach Compendium, Do Not Delete/merge, 11/30/2017 12:15:30 12/01/19 18 11/30/2017 urina lysis , dipst ick Blood Negati ve Not Available In-Office Order Internal Use Only DO Not Attach Compendium DO Not Attach Compendium, Do Not Delete/merge, 11/30/2017 12:15:30 12/01/19 18 11/30/2017 urina lysis , dipst ick Specific [place] 1.030 Not Available In-Off ice Order Internal Use Only DO Not Attach Compendium DO Not Attach Compendium, Do Not Delete/merge, 11/30/2017 12:15:30 06/14/20 18 11/30/2017 urina lysis , dipst ick Ketone Negati ve Not Available In-Office Order Internal Use Only DO Not Attach Compendium DO Not Attach Compendium, Do Not Delete/merge, [id number] 11/30/2017 12:15:30 12/01/19 18 11/30/2017 urina lysis , dipst ick Bilirubin Negati ve Not Available In-Office Order Internal Use Only DO Not Attach Compendium DO Not Attach Compendium, Do Not Delete/merge, [id number] 11/30/2017 12:15:30 12/01/19 18 11/30/2017 urina lysis , dipst ick Glucose Negati ve Not Available In-Office Order Internal Use Only DO Not Attach Compendium DO Not Attach Compendium, Do Not Delete/merge, [id number] 11/30/2017 12:15:30 05/22/20 17 05/22/2017 urina lysis , dipst ick Leukocytes Trace Not Available In-Offi ce Order Internal Use Only DO Not Attach Compendium DO Not Attach Compendium, Do Not Delete/merge, [id number] 05/22/2017 16:09:12 05/22/20 17 05/22/2017 urina lysis , dipst ick Nitrite negati ve Not Available In-Office Order Internal Use Only DO Not Attach Compendium DO Not Attach Compendium, Do Not Delete/merge, [id number] 05/22/2017 16:09:12 05/22/20 17 05/22/2017 urina lysis , dipst ick Urobilinogen .2 Not Available In-Of fice Order Internal Use Only DO Not Attach Compendium DO Not Attach Compendium, Do Not Delete/merge, [id number] 05/22/2017 16:09:12 05/22/20 17 05/22/2017 urina lysis , dipst ick Protein Negati ve Not Available In-Office Order Internal Use Only DO Not Attach Compendium DO Not Attach Compendium, Do Not Delete/merge, [id number] 05/22/2017 16:09:12 05/22/20 17 05/22/2017 urina lysis , dipst ick pH 7.5 Not Available In-Office Order Internal Use Only DO Not Attach Compendium DO Not Attach Compendium, Do Not Delete/merge, [id number] 05/22/2017 16:09:12 05/22/20 17 05/22/2017 urina lysis , dipst ick Blood Negati ve Not Available In-Office Order Internal Use Only DO Not Attach Compendium DO Not Attach Compendium, Do Not Delete/merge, [id number] 05/22/2017 16:09:12 05/22/20 17 05/22/2017 urina lysis , dipst ick Specific [place] 1.020 Not Available In-Off ice Order Internal Use Only DO Not Attach Compendium DO Not Attach Compendium, Do Not Delete/merge, [id number] 05/22/2017 16:09:12 05/22/20 17 05/22/2017 urina lysis , dipst ick Ketone Negati ve Not Available In-Office Order Internal Use Only DO Not Attach Compendium DO Not Attach Compendium, Do Not Delete/merge, [id number] 05/22/2017 16:09:12 05/22/20 17 05/22/2017 urina lysis , dipst ick Bilirubin Negati ve Not Available In-Office Order Internal Use Only DO Not Attach Compendium DO Not Attach Compendium, Do Not Delete/merge, [id number] 05/22/2017 16:09:12 05/22/20 17 05/22/2017 urina lysis , dipst ick Glucose Negati ve Not Available In-Office Order Internal Use Only DO Not Attach Compendium DO Not Attach Compendium, Do Not Delete/merge, [id number] 05/22/2017 16:09:12 05/22/20 17 05/22/2017 pregn sherri test, urine HCG negati ve Not Available In-Office Order Internal Use Only DO Not Attach Compendium DO Not Attach Compendium, Do Not Delete/merge, [id number] 05/22/2017 16:08:54 04/13/20 17 04/13/2017 urina lysis , dipst ick Leukocytes Negati ve Not Available In-Office Order Internal Use Only DO Not Attach Compendium DO Not Attach Compendium, Do Not Delete/merge, [id number] 04/13/2017 16:55:32 04/13/20 17 04/13/2017 urina lysis , dipst ick Nitrite negati ve Not Available In-Office Order Internal Use Only DO Not Attach Compendium DO Not Attach Compendium, Do Not Delete/merge, [id number] 04/13/2017 16:55:32 04/13/20 17 04/13/2017 urina lysis , dipst ick Urobilinogen .2 Not Available In-Of fice Order Internal Use Only DO Not Attach Compendium DO Not Attach Compendium, Do Not Delete/merge, [id number] 04/13/2017 16:55:32 04/13/20 17 04/13/2017 urina lysis , dipst ick Protein Negati ve Not Available In-Office Order Internal Use Only DO Not Attach Compendium DO Not Attach Compendium, Do Not Delete/merge, [id number] 04/13/2017 16:55:32 04/13/20 17 04/13/2017 urina lysis , dipst ick pH 7.0 Not Available In-Office Order Internal Use Only DO Not Attach Compendium DO Not Attach Compendium, Do Not Delete/merge, [id number] 04/13/2017 16:55:32 04/13/20 17 04/13/2017 urina lysis , dipst ick Blood Negati ve Not Available In-Office Order Internal Use Only DO Not Attach Compendium DO Not Attach Compendium, Do Not Delete/merge, [id number] 04/13/2017 16:55:32 04/13/20 17 04/13/2017 urina lysis , dipst ick Specific [place] 1.015 Not Available In-Off ice Order Internal Use Only DO Not Attach Compendium DO Not Attach Compendium, Do Not Delete/merge, [id number] 04/13/2017 16:55:32 04/13/20 17 04/13/2017 urina lysis , dipst ick Ketone Negati ve Not Available In-Office Order Internal Use Only DO Not Attach Compendium DO Not Attach Compendium, Do Not Delete/merge, [id number] 04/13/2017 16:55:32 04/13/20 17 04/13/2017 urina lysis , dipst ick Bilirubin Negati ve Not Available In-Office Order Internal Use Only DO Not Attach Compendium DO Not Attach Compendium, Do Not Delete/merge, [id number] 04/13/2017 16:55:32 04/13/20 17 04/13/2017 urina lysis , dipst ick Glucose Negati ve Not Available In-Office Order Internal Use Only DO Not Attach Compendium DO Not Attach Compendium, Do Not Delete/merge, [id number] 04/13/2017 16:55:32 04/06/20 17 04/06/2017 urina lysis , dipst ick Leukocytes Trace Not Available In-Offi ce Order Internal Use Only DO Not Attach Compendium DO Not Attach Compendium, Do Not Delete/merge, 04/06/2017 16:58:16 04/06/20 17 04/06/2017 urina lysis , dipst ick Nitrite negati ve Not Available In-Office Order Internal Use Only DO Not Attach Compendium DO Not Attach Compendium, Do Not Delete/merge, 04/06/2017 16:58:16 04/06/20 17 04/06/2017 urina lysis , dipst ick Urobilinogen .2 Not Available In-Of fice Order Internal Use Only DO Not Attach Compendium DO Not Attach Compendium, Do Not Delete/merge, [id number] 04/06/2017 16:58:16 04/06/20 17 04/06/2017 urina lysis , dipst ick Protein Negati ve Not Available In-Office Order Internal Use Only DO Not Attach Compendium DO Not Attach Compendium, Do Not Delete/merge, 04/06/2017 16:58:16 04/06/20 17 04/06/2017 urina lysis , dipst ick pH 6.5 Not Available In-Office Order Internal Use Only DO Not Attach Compendium DO Not Attach Compendium, Do Not Delete/merge, [id number] 04/06/2017 16:58:16 04/06/20 17 04/06/2017 urina lysis , dipst ick Blood Negati ve Not Available In-Office Order Internal Use Only DO Not Attach Compendium DO Not Attach Compendium, Do Not Delete/merge, 04/06/2017 16:58:16 04/06/20 17 04/06/2017 urina lysis , dipst ick Specific [place] 1.020 Not Available In-Off ice Order Internal Use Only DO Not Attach Compendium DO Not Attach Compendium, Do Not Delete/merge, 04/06/2017 16:58:16 04/06/20 17 04/06/2017 urina lysis , dipst ick Ketone Negati ve Not Available In-Office Order Internal Use Only DO Not Attach Compendium DO Not Attach Compendium, Do Not Delete/merge, [id number] 04/06/2017 16:58:16 04/06/20 17 04/06/2017 urina lysis , dipst ick Bilirubin Negati ve Not Available In-Office Order Internal Use Only DO Not Attach Compendium DO Not Attach Compendium, Do Not Delete/merge, [id number] 04/06/2017 16:58:16 04/06/20 17 04/06/2017 urina lysis , dipst ick Glucose Negati ve Not Available In-Office Order Internal Use Only DO Not Attach Compendium DO Not Attach Compendium, Do Not Delete/merge, [id number] 04/06/2017 16:58:16 03/31/20 17 03/31/2017 urina lysis , dipst ick Leukocytes Trace Not Available In-Offi ce Order Internal Use Only DO Not Attach Compendium DO Not Attach Compendium, Do Not Delete/merge, [id number] 03/31/2017 16:06:11 03/31/20 17 03/31/2017 urina lysis , dipst ick Nitrite negati ve Not Available In-Office Order Internal Use Only DO Not Attach Compendium DO Not Attach Compendium, Do Not Delete/merge, [id number] 03/31/2017 16:06:11 03/31/20 17 03/31/2017 urina lysis , dipst ick Urobilinogen .2 Not Available In-Of fice Order Internal Use Only DO Not Attach Compendium DO Not Attach Compendium, Do Not Delete/merge, [id number] 03/31/2017 16:06:11 03/31/20 17 03/31/2017 urina lysis , dipst ick Protein Negati ve Not Available In-Office Order Internal Use Only DO Not Attach Compendium DO Not Attach Compendium, Do Not Delete/merge, [id number] 03/31/2017 16:06:11 03/31/20 17 03/31/2017 urina lysis , dipst ick pH 7.0 Not Available In-Office Order Internal Use Only DO Not Attach Compendium DO Not Attach Compendium, Do Not Delete/merge, [id number] 03/31/2017 16:06:11 03/31/20 17 03/31/2017 urina lysis , dipst ick Blood Negati ve Not Available In-Office Order Internal Use Only DO Not Attach Compendium DO Not Attach Compendium, Do Not Delete/merge, [id number] 03/31/2017 16:06:11 03/31/20 17 03/31/2017 urina lysis , dipst ick Specific [place] 1.025 Not Available In-Off ice Order Internal Use Only DO Not Attach Compendium DO Not Attach Compendium, Do Not Delete/merge, [id number] 03/31/2017 16:06:11 03/31/20 17 03/31/2017 urina lysis , dipst ick Ketone Negati ve Not Available In-Office Order Internal Use Only DO Not Attach Compendium DO Not Attach Compendium, Do Not Delete/merge, [id number] 03/31/2017 16:06:11 03/31/20 17 03/31/2017 urina lysis , dipst ick Bilirubin Negati ve Not Available In-Office Order Internal Use Only DO Not Attach Compendium DO Not Attach Compendium, Do Not Delete/merge, [id number] 03/31/2017 16:06:11 03/31/20 17 03/31/2017 urina lysis , dipst ick Glucose Negati ve Not Available In-Office Order Internal Use Only DO Not Attach Compendium DO Not Attach Compendium, Do Not Delete/merge, [id number] 03/31/2017 16:06:11 03/24/20 17 03/24/2017 urina lysis , dipst ick Leukocytes Negati ve Not Available In-Office Order Internal Use Only DO Not Attach Compendium DO Not Attach Compendium, Do Not Delete/merge, [id number] 03/24/2017 15:59:02 03/24/20 17 03/24/2017 urina lysis , dipst ick Nitrite negati ve Not Available In-Office Order Internal Use Only DO Not Attach Compendium DO Not Attach Compendium, Do Not Delete/merge, [id number] 03/24/2017 15:59:02 03/24/20 17 03/24/2017 urina lysis , dipst ick Urobilinogen .2 Not Available In-Of fice Order Internal Use Only DO Not Attach Compendium DO Not Attach Compendium, Do Not Delete/merge, [id number] 03/24/2017 15:59:02 03/24/20 17 03/24/2017 urina lysis , dipst ick Protein Negati ve Not Available In-Office Order Internal Use Only DO Not Attach Compendium DO Not Attach Compendium, Do Not Delete/merge, [id number] 03/24/2017 15:59:02 03/24/20 17 03/24/2017 urina lysis , dipst ick pH 7.0 Not Available In-Office Order Internal Use Only DO Not Attach Compendium DO Not Attach Compendium, Do Not Delete/merge, [id number] 03/24/2017 15:59:02 03/24/20 17 03/24/2017 urina lysis , dipst ick Blood Negati ve Not Available In-Office Order Internal Use Only DO Not Attach Compendium DO Not Attach Compendium, Do Not Delete/merge, [id number] 03/24/2017 15:59:02 03/24/20 17 03/24/2017 urina lysis , dipst ick Specific [place] 1.015 Not Available In-Off ice Order Internal Use Only DO Not Attach Compendium DO Not Attach Compendium, Do Not Delete/merge, 03/24/2017 15:59:02 03/24/20 17 03/24/2017 urina lysis , dipst ick Ketone Negati ve Not Available In-Office Order Internal Use Only DO Not Attach Compendium DO Not Attach Compendium, Do Not Delete/merge, [id number] 03/24/2017 15:59:02 03/24/20 17 03/24/2017 urina lysis , dipst ick Bilirubin Negati ve Not Available In-Office Order Internal Use Only DO Not Attach Compendium DO Not Attach Compendium, Do Not Delete/merge, [id number] 03/24/2017 15:59:02 03/24/20 17 03/24/2017 urina lysis , dipst ick Glucose Negati ve Not Available In-Office Order Internal Use Only DO Not Attach Compendium DO Not Attach Compendium, Do Not Delete/merge, [id number] 03/24/2017 15:59:02 03/24/20 17 03/24/2017 urina lysis , dipst ick Appearance Clear Not Available In-Offi ce Order Internal Use Only DO Not Attach Compendium DO Not Attach Compendium, Do Not Delete/merge, 03/24/2017 15:59:02 03/24/20 17 03/24/2017 urina lysis , dipst ick Color Pale Yellow Not Available In-Office Order Internal Use Only DO Not Attach Compendium DO Not Attach Compendium, Do Not Delete/merge, 03/24/2017 15:59:02 03/10/20 17 03/10/2017 urina lysis , dipst ick Leukocytes Negati ve Not Available In-Office Order Internal Use Only DO Not Attach Compendium DO Not Attach Compendium, Do Not Delete/merge, 03/10/2017 16:05:58 03/10/20 17 03/10/2017 urina lysis , dipst ick Nitrite negati ve Not Available In-Office Order Internal Use Only DO Not Attach Compendium DO Not Attach Compendium, Do Not Delete/merge, 03/10/2017 16:05:58 03/10/20 17 03/10/2017 urina lysis , dipst ick Urobilinogen 8 Not Available In-Of fice Order Internal Use Only DO Not Attach Compendium DO Not Attach Compendium, Do Not Delete/merge, 03/10/2017 16:05:58 03/10/20 17 03/10/2017 urina lysis , dipst ick Protein 100 Not Available In-Office Order Internal Use Only DO Not Attach Compendium DO Not Attach Compendium, Do Not Delete/merge, 03/10/2017 16:05:58 03/10/20 17 03/10/2017 urina lysis , dipst ick pH 7.0 Not Available In-Office Order Internal Use Only DO Not Attach Compendium DO Not Attach Compendium, Do Not Delete/merge, 03/10/2017 16:05:58 03/10/20 17 03/10/2017 urina lysis , dipst ick Blood Small Not Available In-Office Order Internal Use Only DO Not Attach Compendium DO Not Attach Compendium, Do Not Delete/merge, 03/10/2017 16:05:58 03/10/20 17 03/10/2017 urina lysis , dipst ick Specific [place] 1.020 Not Available In-Off ice Order Internal Use Only DO Not Attach Compendium DO Not Attach Compendium, Do Not Delete/merge, 03/10/2017 16:05:58 03/10/20 17 03/10/2017 urina lysis , dipst ick Ketone Negati ve Not Available In-Office Order Internal Use Only DO Not Attach Compendium DO Not Attach Compendium, Do Not Delete/merge, 03/10/2017 16:05:58 03/10/20 17 03/10/2017 urina lysis , dipst ick Bilirubin Negati ve Not Available In-Office Order Internal Use Only DO Not Attach Compendium DO Not Attach Compendium, Do Not Delete/merge, 03/10/2017 16:05:58 03/10/20 17 03/10/2017 urina lysis , dipst ick Glucose Negati ve Not Available In-Office Order Internal Use Only DO Not Attach Compendium DO Not Attach Compendium, Do Not Delete/merge, 03/10/2017 16:05:58 02/24/20 17 02/23/2017 urina lysis , dipst ick Leukocytes Trace Not Available In-Offi ce Order Internal Use Only DO Not Attach Compendium DO Not Attach Compendium, Do Not Delete/merge, 02/23/2017 16:27:50 02/24/20 17 02/23/2017 urina lysis , dipst ick Nitrite negati ve Not Available In-Office Order Internal Use Only DO Not Attach Compendium DO Not Attach Compendium, Do Not Delete/merge, 02/23/2017 16:27:50 02/24/20 17 02/23/2017 urina lysis , dipst ick Urobilinogen .2 Not Available In-Of fice Order Internal Use Only DO Not Attach Compendium DO Not Attach Compendium, Do Not Delete/merge, 02/23/2017 16:27:50 02/24/20 17 02/23/2017 urina lysis , dipst ick Protein Negati ve Not Available In-Office Order Internal Use Only DO Not Attach Compendium DO Not Attach Compendium, Do Not Delete/merge, 02/23/2017 16:27:50 02/24/20 17 02/23/2017 urina lysis , dipst ick pH 7.0 Not Available In-Office Order Internal Use Only DO Not Attach Compendium DO Not Attach Compendium, Do Not Delete/merge, 02/23/2017 16:27:50 02/24/20 17 02/23/2017 urina lysis , dipst ick Blood Negati ve Not Available In-Office Order Internal Use Only DO Not Attach Compendium DO Not Attach Compendium, Do Not Delete/merge, 02/23/2017 16:27:50 02/24/20 17 02/23/2017 urina lysis , dipst ick Specific [place] 1.020 Not Available In-Off ice Order Internal Use Only DO Not Attach Compendium DO Not Attach Compendium, Do Not Delete/merge, 02/23/2017 16:27:50 02/24/20 17 02/23/2017 urina lysis , dipst ick Ketone Negati ve Not Available In-Office Order Internal Use Only DO Not Attach Compendium DO Not Attach Compendium, Do Not Delete/merge, 02/23/2017 16:27:50 02/24/20 17 02/23/2017 urina lysis , dipst ick Bilirubin Negati ve Not Available In-Office Order Internal Use Only DO Not Attach Compendium DO Not Attach Compendium, Do Not Delete/merge, 02/23/2017 16:27:50 02/24/20 17 02/23/2017 urina lysis , dipst ick Glucose Negati ve Not Available In-Office Order Internal Use Only DO Not Attach Compendium DO Not Attach Compendium, Do Not Delete/merge, 02/23/2017 16:27:50 02/24/20 17 02/23/2017 urina lysis , dipst ick Appearance Slight ly Cloudy Not Available In-Office Order Internal Use Only DO Not Attach Compendium DO Not Attach Compendium, Do Not Delete/merge, 02/23/2017 16:27:50 02/24/20 17 02/23/2017 urina lysis , dipst ick Color Dark Yellow Not Available In-Office Order Internal Use Only DO Not Attach Compendium DO Not Attach Compendium, Do Not Delete/merge, [id number] 02/23/2017 16:27:50 03/24/20 17 03/25/2017 toxop lasma igg+i gm Ab, serum toxoplasma gondii Ab,IgG,qn <3.0 IU/mL 0.0-7. 1 Negat leon <7.2 Equiv ocal 7.2 - 8.7 Posit leon >8.7 Not Available [facility] ([facility]) [address] [place], [address], 03/25/2017 08:19:39 03/24/20 17 03/25/2017 toxop lasma igg+i gm Ab, serum toxoplasma gondii Ab,IgM,qn <3.0 AU/mL 0.0-7. 9 Negat leon <8.0 Equiv ocal 8.0 - 9.9 Posit leon >9.9 Not Available [facility] ([facility]) [address] [place], [address], 03/25/2017 08:19:39 03/24/20 17 03/25/2017 toxop lasma igg+i gm Ab, serum comments COMMEN T No serol ogica l evide nce of infec tion with Toxop lasma . If sympt oms persi st, submi t a new speci men after three weeks . Not Available [facility] ([facility]) [address] [place], [address], 03/25/2017 08:19:39 03/24/20 17 03/25/2017 RPR (rapi d plasm a reagi n), serum RPR NON REACTI VE non reacti ve Not Available [facility] ([facility]) [address] [facility], [place], [address], 03/25/2017 08:19:40 03/24/20 17 03/25/2017 HIV 1+2 AB + HIV 1 p24 Ag, quali tativ e immun oassa y, serum HIV screen 4TH generation wrfx NON REACTI VE non reacti ve Not Available [facility] ([facility]) [address] [facility], [place], [address], 03/25/2017 08:19:40 03/24/20 17 03/25/2017 HBsAg (hepa titis B surfa ce Ag), EIA, serum HBsAg screen NEGATI VE negati ve Not Available [facility] ([facility]) [address] [facility], [place], [address], 03/25/2017 08:19:41 03/24/20 17 03/27/2017 bacte rial vagin osis + vagin itis panel , vagin al trich vag by LB NEGATI VE negati ve Not Available [facility] ([facility]) [address] [facility], [place], [address], 03/29/2017 14:13:42 03/24/20 17 03/27/2017 bacte rial vagin osis + vagin itis panel , vagin al chlamydia trachomatis, LB NEGATI VE negati ve Not Available [facility] ([facility]) [address] [place] [address], [address], 03/29/2017 14:13:42 03/24/20 17 03/27/2017 bacte rial vagin osis + vagin itis panel , vagin al neisseria gonorrhoeae, LB NEGATI VE negati ve Not Available [facility] ([facility]) [address] [place], [address], 03/29/2017 14:13:42 03/24/20 17 03/29/2017 bacte rial vagin osis + vagin itis panel , vagin al atopobium vaginae LOW - 0 score Not Available [facility] ([facility]) [address] [place] [address], [address], 03/29/2017 14:13:42 03/24/20 17 03/29/2017 bacte rial vagin osis + vagin itis panel , vagin al bvab 2 LOW - 0 score Not Available [facility] ([facility]) [address] [facility], [place], [address], 03/29/2017 14:13:42 03/24/20 17 03/29/2017 bacte rial vagin osis + vagin itis panel , vagin al megasphaera 1 LOW - 0 score Calcu late total score by ritchie moseley the 3 indiv idual bacte rial vagin osis (BV) marke r score s toget her. Total score is inter prete d as follo ws: Total score 0-1: Indic ates the absen ce of BV. Total score 2: Indet ermin ate for BV. Addit ional clini gloria data shoul d be evalu ated to estab marvel a diagn osis. Total score 3-6: Indic ates the prese nce of BV. This test was devel oped and its perfo rmanc e bonifacio cteri stics deter mined by [employer]. It has not been clear ed or appro sotero by the Food and Drug Admin istra tion. The FDA has deter mined that such clear ance or appro salome is not neces margarito. Not Available [facility] ([facility]) [address] [facility], [place], [address], 03/29/2017 14:13:42 03/24/20 17 03/29/2017 bacte rial vagin osis + vagin itis panel , vagin al radha albicans, LB NEGATI VE negati ve Not Available [facility] ([facility]) [address] [place], [address], 03/29/2017 14:13:42 03/24/20 17 03/29/2017 bacte rial vagin osis + vagin itis panel , vagin al radha glabrata, LB NEGATI VE negati ve This test was devel oped and its perfo rmanc e bonifacio cteri stics deter mined by [employer]. It has not been clear ed or appro sotero by the Food and Drug Admin istra tion. The FDA has deter mined that such clear ance or appro salome is not neces margarito. Not Available [facility] ([facility]) [address] [facility], [place], [address], 03/29/2017 14:13:42 03/24/20 17 03/28/2017 HSV (1+2) DNA, qual, PCR, unspe cifie d speci men hsv 1 LB NEGATI VE negati ve Not Available [facility] ([facility]) [address] [place], [address], 03/29/2017 14:13:43 03/24/20 17 03/28/2017 HSV (1+2) DNA, qual, PCR, unspe cifie d speci men hsv 2 LB NEGATI VE negati ve Not Available [facility] ([facility]) [address] [facility], [place], [address], 03/29/2017 14:13:43 03/24/20 17 03/26/2017 cultu re, vagin al/re ctal, strep tococ cus group B strep gp B LB NEGATI VE negati ve Cente rs for Disea se Contr ol and Preve ntion (CDC) and [place] Congr ess of Obste trici ans and Gynec ologi sts (ACOG ) guide lines for preve ntion of perin atal group B strep tococ gloria (GBS) disea se speci fy co-co llect ion of a vagin al and recta l swab speci men to maxim ize sensi tivit y of GBS detec tion. Per the CDC and ACOG, swabb ing both the lower vagin a and rectu m subst antia lly incre ases the yield of detec tion fabiano red with sampl ing the vagin a alone . Penic illin G, ampic illin , or cefaz khris are indic ated for intra partu m proph ylaxi s of perin atal GBS colon izati on. Refle x susce ptibi lity testi ng shoul d be perfo rmed prior to use of clind amyci n only on GBS isola florence from penic illin -sahra rgic women who are consi dered a high risk for anaph ylaxi s. Treat ment with vanco mycin witho ut addit ional testi ng is warrstefan nted if resis tance to clind amyci n is noted . Not Available [facility] ([facility]) [address] [facility], [place], [address], 03/29/2017 14:13:43 05/22/20 17 05/24/2017 bacte rial vagin osis + vagin itis panel , vagin al atopobium vaginae LOW - 0 score Not Available [facility] ([facility]) [address] [place], [address], 05/25/2017 06:07:31 05/22/20 17 05/24/2017 bacte rial vagin osis + vagin itis panel , vagin al bvab 2 LOW - 0 score Not Available [facility] ([facility]) [address] [facility], [place], [address], 05/25/2017 06:07:31 05/22/20 17 05/24/2017 bacte rial vagin osis + vagin itis panel , vagin al megasphaera 1 LOW - 0 score Calcu late total score by ritchie moseley the 3 indiv idual bacte rial vagin osis (BV) marke r score s toget her. Total score is inter prete d as follo ws: Total score 0-1: Indic ates the absen ce of BV. Total score 2: Indet ermin ate for BV. Addit ional clini gloria data shoul d be evalu ated to estab marvel a diagn osis. Total score 3-6: Indic ates the prese nce of BV. This test was devel oped and its perfo rmanc e bonifacio cteri stics deter mined by [employer]. It has not been clear ed or appro sotero by the Food and Drug Admin istra tion. The FDA has deter mined that such clear ance or appro salome is not neces margarito. Not Available [facility] ([facility]) [address] [place], [address], 05/25/2017 06:07:31 05/22/20 17 05/24/2017 bacte rial vagin osis + vagin itis panel , vagin al radha albicans, LB NEGATI VE negati ve Not Available [facility] ([facility]) [address] [place], [address], 05/25/2017 06:07:31 05/22/20 17 05/24/2017 bacte rial vagin osis + vagin itis panel , vagin al radha glabrata, LB NEGATI VE negati ve This test was devel oped and its perfo rmanc e bonifacio cteri stics deter mined by [facility] [facility]. It has not been clear ed or appro sotero by the Food and Drug Admin istra tion. The FDA has deter mined that such clear ance or appro salome is not neces margarito. Not Available [facility] ([facility]) [address] [place], [address], 05/25/2017 06:07:31 05/22/20 17 05/24/2017 bacte rial vagin osis + vagin itis panel , vagin al trich vag by LB NEGATI VE negati ve Not Available [facility] ([facility]) [address] [place], [address], 05/25/2017 06:07:31 05/22/20 17 05/24/2017 bacte rial vagin osis + vagin itis panel , vagin al chlamydia trachomatis, LB NEGATI VE negati ve Not Available [facility] ([facility]) [address] [place], [address], 05/25/2017 06:07:31 05/22/20 17 05/24/2017 bacte rial vagin osis + vagin itis panel , vagin al neisseria gonorrhoeae, LB NEGATI VE negati ve Not Available [facility] ([facility]) [address] [place], [address], 05/25/2017 06:07:31 05/22/20 17 05/24/2017 HSV (1+2) DNA, qual, PCR, unspe cifie d speci men hsv 1 LB NEGATI VE negati ve Not Available [facility] ([facility]) [address] [facility], [place], [address], 05/25/2017 06:07:31 05/22/20 17 05/24/2017 HSV (1+2) DNA, qual, PCR, unspe cifie d speci men hsv 2 LB NEGATI VE negati ve Not Available [facility] ([facility]) [address] [facility], [place], [address], 05/25/2017 06:07:31 05/22/20 17 05/24/2017 cultu re, vagin al/re ctal, strep tococ cus group B strep gp B LB NEGATI VE negati ve Cente rs for Disea se Contr ol and Preve ntion (CDC) and [place] Congr ess of Obste trici ans and Gynec ologi sts (ACOG ) guide lines for preve ntion of perin atal group B strep tococ gloria (GBS) disea se speci fy co-co llect ion of a vagin al and recta l swab speci men to maxim ize sensi tivit y of GBS detec tion. Per the CDC and ACOG, swabb ing both the lower vagin a and rectu m subst antia lly incre ases the yield of detec tion fabiano red with sampl ing the vagin a alone . Penic illin G, ampic illin , or cefaz khris are indic ated for intra partu m proph ylaxi s of perin atal GBS colon izati on. Refle x susce ptibi lity testi ng shoul d be perfo rmed prior to use of clind amyci n only on GBS isola florence from penic illin -sahra rgic women who are consi dered a high risk for anaph ylaxi s. Treat ment with vanco mycin witho ut addit ional testi ng is warra nted if resis tance to clind raymond hancock is noted . Not Available [facility] ([facility]) [address] [facility], [place], [address], 05/25/2017 06:07:32 05/22/20 17 05/26/2017 pap, IG + HPV, cervi gloria diagnosis: ORLANDO Castañeda NEGAT LEON FOR INTRA EPITH ELIAL LESIO N AND MALJUANA SARMIENTO . THIS SPECI MEN WAS RESCR EENED PART OF OUR QUALI TY CONTR OL PROGR AM. Not Available [facility] ([facility]) [address] [facility], [place], [address], 05/26/2017 16:17:12 05/22/20 17 05/26/2017 pap, IG + HPV, cervi gloria specimen adequacy: ORLANDO Castañeda Satis facto ry for evalu ation . No endoc ervic al compo nent is ident ified . Not Available [facility] ([facility]) [address] [facility], [place], [address], 05/26/2017 16:17:12 05/22/20 17 05/26/2017 pap, IG + HPV, cervi gloria clinician provided ICD10: ORLANDO Castañeda Z20.2 Z39.2 Not Available [facility] ([facility]) [address] [place], [address], 05/26/2017 16:17:12 05/22/20 17 05/26/2017 pap, IG + HPV, cervi gloria performed by: ORLANDO hancock, Cytot echno logis t (ASCP ) Not Available [facility] ([facility]) [address] [place], [address], 05/26/2017 16:17:12 05/22/20 17 05/26/2017 pap, IG + HPV, cervi gloria QC reviewed by: ORLANDO Ricks r, Super visor y Cytot echno logis t (ASCP ) Not Available [facility] ([facility]) [address] [place], [address], 05/26/2017 16:17:12 05/22/20 17 05/26/2017 pap, IG + HPV, cervi gloria . . Not Available [facility] ([facility]) [address] [facility], [place], [address], 05/26/2017 16:17:12 05/22/20 17 05/26/2017 pap, IG + HPV, cervi gloria note: COMMEN T The Pap smear is a scree mayra test desig enrrique to aid in the detec tion of asha ligna nt and malig nant condi tions of the uteri ne cervi x. It is not a diagn ostic proce dure and shoul d not be used as the sole means of detec ting cervi gloria cance r. Both false -posi tive and false -nega tive repor ts do occur . Not Available [facility] ([facility]) [address] [place], [address], 05/26/2017 16:17:12 05/22/20 17 05/26/2017 pap, IG + HPV, cervi gloria test methodology: COMMEN T This liqui d based ThinP rep(R ) pap test was scree enrrique with the use of an image guide blossom mcduffie. Not Available [facility] ([facility]) [address] [place], [address], 05/26/2017 16:17:12 05/22/20 17 05/26/2017 pap, IG + HPV, cervi gloria HPV aptima NEGATI VE negati ve This test detec ts fourt een high- risk HPV types (16/1 8/31/ 33/35 /39/4 5/ 51/52 /56/5 8/59/ 66/68 ) witho ut diffe renti ation . Not Available [facility] ([facility]) [address] [facility], [place], [address], 05/26/2017 16:17:12 12/01/19 18 12/04/2017 bacte rial vagin osis + vagin itis panel , vagin al trich vag by LB Negati ve negati ve Not Available [facility] ([facility]) [address] [place], [address], 12/06/2017 16:22:55 12/01/19 18 12/04/2017 bacte rial vagin osis + vagin itis panel , vagin al chlamydia trachomatis, LB Negati ve negati ve Not Available [facility] ([facility]) [address] [place], [address], 12/06/2017 16:22:55 12/01/19 18 12/04/2017 bacte rial vagin osis + vagin itis panel , vagin al neisseria gonorrhoeae, LB Negati ve negati ve Not Available [facility] ([facility]) [address] [place], [address], 12/06/2017 16:22:55 12/01/19 18 12/05/2017 bacte rial vagin osis + vagin itis panel , vagin al atopobium vaginae Low - 0 score Not Available [facility] ([facility]) [address] [place], [address], 12/06/2017 16:22:55 12/01/19 18 12/05/2017 bacte rial vagin osis + vagin itis panel , vagin al bvab 2 Low - 0 score Not Available [facility] ([facility]) [address] [place], [address], 12/06/2017 16:22:55 12/01/19 18 12/05/2017 bacte rial vagin osis + vagin itis panel , vagin al megasphaera 1 Low - 0 score Calcu late total score by ritchie moseley the 3 indiv idual bacte rial vagin osis (BV) marke r score s toget her. Total score is inter prete d as follo ws: Total score 0-1: Indic ates the absen ce of BV. Total score 2: Indet ermin ate for BV. Addit ional clini gloria data shoul d be evalu ated to estab marvel a diagn osis. Total score 3-6: Indic ates the prese nce of BV. This test was devel oped and its perfo rmanc e bonifacio cteri stics deter mined by [employer]. It has not been clear ed or appro sotero by the Food and Drug Admin istra tion. The FDA has deter mined that such clear ance or appro salome is not neces margarito. Not Available [facility] ([facility]) [address] [place], [address], 12/06/2017 16:22:55 12/01/19 18 12/05/2017 bacte rial vagin osis + vagin itis panel , vagin al radha albicans, LB Negati ve negati ve Not Available [facility] ([facility]) [address] [place], [address], 12/06/2017 16:22:55 12/01/19 18 12/05/2017 bacte rial vagin osis + vagin itis panel , vagin al radha glabrata, LB Negati ve negati ve This test was devel oped and its perfo rmanc e bonifacio cteri stics deter mined by [employer]. It has not been clear ed or appro sotero by the Food and Drug Admin istra tion. The FDA has deter mined that such clear ance or appro salome is not neces margarito. Not Available [facility] ([facility]) [address] [place], [address], 12/06/2017 16:22:55 12/01/19 18 12/04/2017 HSV (1+2) DNA, qual, PCR, unspe cifie d speci men hsv 1 LB Negati ve negati ve Not Available [facility] ([facility]) [address] [place], [address], 12/06/2017 16:22:56 12/01/19 18 12/04/2017 HSV (1+2) DNA, qual, PCR, unspe cifie d speci men hsv 2 LB Negati ve negati ve Not Available [facility] ([facility]) [address] [facility], [place], [address], 12/06/2017 16:22:56 12/01/19 18 12/06/2017 cultu re, vagin al/re ctal, strep tococ cus group B strep gp B LB Negati ve negati ve Cente rs for Disea se Contr ol and Preve ntion (CDC) and [place] can Congr ess of Obste trici ans and Gynec ologi sts (ACOG ) guide lines for preve ntion of perin atal group B strep tococ gloria (GBS) disea se speci fy co-co llect ion of a vagin al and recta l swab speci men to maxim ize sensi tivit y of GBS detec tion. Per the CDC and ACOG, swabb ing both the lower vagin a and rectu m subst antia lly incre ases the yield of detec tion fabiano red with sampl ing the vagin a alone . Penic illin G, ampic illin , or cefaz khris are indic ated for intra partu m proph ylaxi s of perin atal GBS colon izati on. Refle x susce ptibi lity testi ng shoul d be perfo rmed prior to use of clind amyci n only on GBS isola florence from penic illin -sahra rgic women who are consi dered a high risk for anaph ylaxi s. Treat ment with vanco mycin witho ut addit ional testi ng is warra nted if resis tance to clind amyci n is noted . Not Available [facility] ([facility]) [address] [facility], [place], [address], 12/06/2017 16:22:56 03/03/20 17 02/07/2017 US, obste tric, follo w-up No observ ation record ed. jaylen [facility] [address] [place], [address], 03/10/2017 16:08:23 03/03/20 17 03/03/2017 US, obste tric, follo w-up No observ ation record ed. [email or web address] [facility] ([facility]) [address] [place], [address], 06/08/2017 16:14:10 04/24/20 17 US, obste tric, 2nd trime ster No observ ation record ed. [email or web address] Not [facility] 05/22 18:09:43 06/20/19 18 06/19/2017 XR, hand No observ ation record ed. [facility] (Imaging) [address] [place], [address], 11/30/2017 14:17:56 Result Notes None recorded. Problems Name Problem SNOMED Code Status Onset Date Resolution Date Notes Provider Name and Address Organization Details Recorded Time Amenorrhea 07360318 Active Stella Ornelas [place] null, [place] - [facility] 6 14:43:40 [place] eye disease Active Stella Ornel[place] [facility] 6 14:43:40 Lower urinary tract infectious disease 1780182 Active Stella Ornel[place], [place] [facility] 6 14:43:40 Urogenital infection by Trichomonas vaginalis 46140078 Active Stella Ornel[place] [facility] 6 14:43:40 Chlamydial infection 559662951 Active Stella Ornel[place] [facility] 6 14:43:40 Sexually transmitted infectious disease 6248183 Active Stella Ornel[place] [facility] 6 14:43:40 Bacterial vaginosis 207794654 Active REKHA [place], [place] - [facility] 6 14:43:40 Abnormal cervical Papanicolao u smear 638163707 Active REKHA Stafford, [place] - [facility] 6 11:55:21 Atypical squamous cells of undetermine d significanc e on cervical Papanicolao u smear 388004366 Active REKHA Carr, [facility] 6 14:43:40 Abnormal vaginal bleeding 442992944 Active REKHA Carr, [place] - [facility] 6 14:43:40 Acute tonsillitis 78003748 Active REKHA Carr, [facility] 6 14:43:40 Cervical intraepithe lial neoplasia grade 1 917049921 Active REKHA Carr, [place] - [facility] 6 14:43:40 16101740 Completed 201605/22/2017 Lakia Dumont MA carlyle, [facility] 7 16:07:57 Problem Notes None recorded. Procedures Surgical History Date Name Laterality Status Provider Name and Address Organization Details Recorded Time 7 Date of Last Pap Smear completed Lakia Dumont MA [facility] 05/22/2017 16:03:30 6 Colposcopy completed Jamison Mitchell [facility] 05/03/2016 11:05:19 2 Colposcopy completed Lakia Dumont MA [facility] 05/03/2016 10:24:03 Imaging Results Imaging Date Name Status LastModified by Organiz ation Details LastModified Time 02/07/2017 US, obstetric, follow-up active [facility] [address] [place] [address], [address], 03/10/2017 16:08:23 03/03/2017 US, obstetric, follow-up completed [address] ([facility]) [address] [place], [address], 06/08/2017 16:14:10 04/24/2017 US, obstetric, 2nd trimester completed [email or web address] Information not available 05/22/2017 18:09:43 06/19/2017 XR, hand completed [facility] (Imaging) [address] [place], [address], 11/30/2017 14:17:56 Procedure Notes None recorded. Medical Equipment None Reported. Allergies Allergen ID Allergen Name Allergen Category Reaction Reaction Severity Criticality Documentation Date Start Date Code Code System Note Provider Name and Address Organization Details Recorded Time 27863 Substance with sulfonami de structure and antibacte rial mechanism of action (substanc e) medicatio n rash mild Not available 08/01/2014 68801 8003 SNOMED Not Available Not Available Not Available 19247 clindamyc in Not available rash mild Not available 08/01/2014 2582 RxNorm Not Available Not Available Not Available 79722 Bactrim medicatio n rash Not available Not available 08/01/2014 53339 9 RxNorm Not Available Not Available Not Available Medications Name Sig Start Date Stop Date Status Note LastModified by Organization Details LastModified Time prednisone tab 10mgprednis one 11/02 completed Not Available Not Available Not Available prednisone tab 20mgprednis one 11/02 completed Not Available Not Available Not Available famotidine tab 20mgfamotid ine 11/02 completed Not Available Not Available Not Available diphenhydra m cap 25mgdiphenh ydramine hcl 11/02 completed Not Available Not Available Not Available clindamycin cap 300mgclinda mycin hcl 11/02 completed Not Available Not Available Not Available hydroxyz hcl tab 50mghydroxy zine hcl 11/02 completed Not Available Not Available Not Available smz/tmp ds tab 800-160sulf amethoxazol e/trimethop rim ds 11/02 completed Not Available Not Available Not Available permethrin cre 5%permethri n 11/02 completed Not Available Not Available Not Available methylpred emir 4mgmethylpr ednisolone dose pack 11/02 completed Not Available Not Available Not Available multivitami n tablet Take 1 tablet every day by oral route. 2017 active Not Available Not Available Not Avai lable Vitamin B-6 25 mg tablet Take 1 tablet twice a day by oral route. 11/02 completed Not Available Not Available Not Available azithromyci n 250 mg tablet TAKE 2 TABLETS (500 MG) BY ORAL ROUTE ONCE DAILY FOR 1 DAY THEN 1 TABLET (250 MG) BY ORAL ROUTE ONCE DAILY FOR 4 DAYS 03/10 completed Not Available Not Available Not Available Lidocaine Viscous 2 % mucosal solution SWISH AND SPIT 5 ML BY MOUTH UP TO EVERY 4 HOURS FOUR TIMES DAILY FOR TOOTH PAIN active Not Available Not Available No t Available fluconazole 150 mg tablet TAKE 1 TABLET BY MOUTH 1 TIME active Not Available Not Available No t Available cephalexin 250 mg capsule TAKE 1 CAPSULE BY MOUTH EVERY 8 HOURS FOR 7 DAYS. active Not Available Not Available No t Available ondansetron HCl 4 mg tablet TAKE 1 TABLET BY MOUTH EVERY 8 HOURS. active Not Available Not Available No t Available Monistat 7 2 % vaginal cream Insert 1 applicato rful every day by vaginal route for 7 days. 04/06 completed Not Available Not Available Not Available ceftriaxone 250 mg solution for injection Take 250 mg every day by injection route for 1 day. 11/02 completed Not Available Not Available Not Available metronidazo le 500 mg tablet TAKE 1 TABLET BY MOUTH EVERY 12 HOURS FOR 7 DAYS active Not Available Not Available No t Available amoxicillin 500 mg tablet TAKE 1 TABLET BY MOUTH TWICE DAILY WITH FOOD active Not Available Not Available No t Available Vitamin tablet Take 1 tablet every day by oral route as directed for 90 days. 05/22 completed Not Available Not Available Not Available dicyclomine 20 mg tablet 03/10 completed Not Available Not Available Not Available ciprofloxac in 0.3 % eye drops 03/10 completed Not Available Not Available Not Available cephalexin 500 mg capsule Take 1 capsule every 6 hours by oral route as directed. active Not Available Not Available No t Available ferrous sulfate 325 mg (65 mg iron) tablet active Not Available Not Available Not Available nystatin 100,000 unit/gram topical cream APPLY TO THE AFFECTED AREA(S) BY TOPICAL ROUTE 2 TIMES PER DAY 05/22 completed Not Available Not Available Not Available ranitidine 150 mg tablet Take 1 tablet twice a day by oral route. 04/06 completed Not Available Not Available Not Available omeprazole 20 mg capsule,del ayed release TAKE 1 CAPSULE BY MOUTH DAILY. active Not Available Not Available No t Available cephalexin 500 mg tablet TAKE 1 TABLET BY MOUTH TWICE DAILY active Not Available Not Available No t Available methylpredn isolone 4 mg tablets in a dose pack 03/10 completed Not Available Not Available Not Available medroxyprog esterone 150 mg/mL intramuscul ar suspension Inject 150 mL every 3 months by intramusc ular route. active Not Available Not Available No t Available loratadine 10 mg tablet Take 1 tablet every day by oral route. 03/10 completed Not Available Not Available Not Available naproxen 500 mg tablet 05/22 completed Not Available Not Available Not Available azithromyci n 1 gram oral packet Take 1 packet every day by oral route for 1 day. 11/02 completed Not Available Not Available Not Available TobraDex 0.3 %-0.1 % eye drops,suspe nsion INSTILL 1 DROP INTO AFFECTED EAR(S) BY OTIC ROUTE EVERY 6 HOURS 11/02 completed Not Available Not Available Not Available medroxyprog esterone 150 mg/mL intramuscul ar syringe active Not Available Not Available N ot Available Sprintec (28) 0.25 mg-0.035 mg tablet Take 1 tablet every day by oral route. 11/02 completed Not Available Not Available Not Available ProAir HFA 90 mcg/actuati on aerosol inhaler 05/22 completed Not Available Not Available Not Available Oysco 500/D 500 mg-5 mcg (200 unit) tablet active Not Available Not Available Not Available Calcium with Vitamin D3 600 mg (carbonate) -10 mcg (400 unit) capsule Take 1 capsule twice a day by oral route. 11/02 completed Not Available Not Available Not Available Vinate One 60 mg iron-1 mg tablet 03/10 completed Not Available Not Available Not Available Vitamin D3 50 mcg (2,000 unit) capsule Take 1 capsule every day by oral route. 11/02 completed Not Available Not Available Not Available 28 mg iron-800 mcg tablet active Not Available Not Available N ot Available calcium 600 mg (as carbonate)- vitamin D3 20 mcg (800 unit) tablet Take 1 tablet twice a day by oral route for 30 days. 2017 active Not Available Not Available Not Avai lable Xulane 150 mcg-35 mcg/24 hr transdermal patch Apply 1 patch every week by transderm al route. 2017 active Not Available Not Available Not Avai lable Vitals Date Recorded Body height Body mass index (BMI) Body weight Provider Name and Address Organization Details Last Updated DateTime 05/22/2017 162.56 cm 26.4 kg/m2 42374.80871 g Lakia Dumont MA [facility] 05/22/2017 16:07:54 Date Recorded Body height Body mass index (BMI) Body weight Systolic blood pressure Diastolic blood pressure Provider Name and Address Organization Details Last Updated DateTime 11/30/2017 162.56 cm 28 kg/m2 25471.56 g 100 mm[Hg] 68 mm[Hg] Suzanne REKHA Hernandez [facility] 8 12:12:44 Date Recorded Body height Body mass index (BMI) Body weight Systolic blood pressure Diastolic blood pressure Provider Name and Address Organization Details Last Updated DateTime 03/31/2017 162.56 cm 29.2 kg/m2 21367.70 29 g 100 mm[Hg] 74 mm[Hg] Lakia Dumont MA [facility] 7 16:07:17 Date Recorded Body height Body mass index (BMI) Body weight Provider Name and Address Organization Details Last Updated DateTime 04/06/2017 162.56 cm 29.2 kg/m2 67720.7029 g Lakia Dumont MA [facility] 04/06/2017 16:54:49 Date Recorded Systolic blood pressure Diastolic blood pressure Provider Name and Address Organization Details Last Updated DateTime 04/06/2017 97 mm[Hg] 46 mm[Hg] Jamison Mitchell [facility] 03/19 17:18:29 Date Recorded Body height Body mass index (BMI) Systolic blood pressure Diastolic blood pressure Provider Name and Address Organization Details Last Updated DateTime 04/13/2017 162.56 cm 29.5 kg/m2 94 mm[Hg] 62 mm[Hg] Lakia Dumont MA [facility] 04/13/2017 16:57:45 Date Recorded Body weight Provider Name an d Address Organization Details Last Updated DateTime 04/13/2017 88474.91633 g Haritha Bronson MA [facility] 04/13/2017 17:51:53 Social History Question Answer Notes LastModified by Organizat ion Details LastModified Time Tobacco Smoking Status Never Smoker Lakia Dumont MA null, [facility] 06/25/2015 11:46:09 Do You Have An Advance Directive? No Information not available 06/25/2015 What Is Your Level Of Alcohol Consumption? Occasional [email or web address] Information not available 01/02/2015 Is Blood Transfusion Acceptable In An Emergency? Yes Information not available 06/25/2015 What Is Your Level Of Caffeine Consumption? Occasional Information not available 06/25/2015 How Much Tobacco Do You Chew? None Information not available 06/25/2015 Are You Currently Employed? Yes Information not available 06/25/2015 What Type Of Diet Are You Following? REGULAR Information not available 06/25/2015 Education 10 Information no t available 06/25/2015 Live Alone Or With Others? With Others Information not available 06/25/2015 What Was The Date Of Your Most Recent Tobacco Screening? 11/30/2017 Information not available 01/10/2019 How Many Children Do You Have? 1 Information not available 06/25/2015 Performs Monthly Self-breast Exam? No Information no t available 06/25/2015 Do You Use Protection During Sex? Usually Information not available 06/25/2015 What Is Your Relationship Status? Single Information not available 06/25/2015 Seat Belts Used Routinely Yes Information not available 06/25/2015 Are You Sexually Active? No Information not available 06/25/2015 How Much Tobacco Do You Smoke? No [email or web address] Information not available 03/24/2017 General Stress Level Medium Information not available 06/25/2015 Do You Use Sunscreen Routinely? Yes Information not available 06/25/2015 How Many Years Have You Smoked Tobacco? 0 [email or web address] Information not available 03/24/2017 Sex: Unknown Functional Status Question Answer Note LastModified by Organization D etails LastModified Time What is your exercise level? Moderate Information not available 06/25/2015 Mental Status None recorded. Family History Relationship Description Onset Age of this Age Resolved Age Notes LastModified by Organization Details LastModified Time Mother Suspected breast cancer [email or web address] Not available 2015 16:33:45 Mother Hypertensive disorder [email or web address] Not available 2015 16:33:45 Medical History Condition Response Coronary Artery Disease N Kidney Cyst N Blood Diseases N Hyperthyroidism N Blood disorders N Blood Transfusion N MRSA N Emphysema N Blood Clots N COPD N Depression N Pneumonia N Premature N Peripheral Arterial Disease N Edema N TIA N Headaches/Migraines Y Anxiety Disorder N Obesity N Infertility N Polyps N Acid Reflux (GERD) N Hematuria N Stroke N Neck Injury N Polio N Hospital Admission other than N Neurologic Disorder N Other Sleep Disorders N Rheumatoid Arthritis N Fibromyalgia N Abdominal Aortic Aneurysm Repair N Kidney Disease N Heart Conditions N Heart Disease/Heart Problems N Hospitalizations N Brain Tumors N Acne N Eating Disorder N Skin Problems N Constipation N Meningitis N Tuberculosis N Cerebral Palsy N Myocardial Infarction N Asthma N Substance Abuse N Peripheral Vascular Disease N Vertigo N Sleep Disorder N Cirrhosis N Pulmonary Embolism N Chicken Pox N Flomax Use Past or Present N Hematologic Disease N Anxiety/Depression N Thyroid Disease N Colon Cancer N Glaucoma N Lung Disease N Developmental or Behavioral Disorders N Bipolar N Pacemaker N Diverticulitis/Diverticulosis N Anesthesia Complications N Orthopedic Problems N Orthotics N Head Injury/Concussion N Congenital Anomalies N العلي Bite N Chronic Kidney Disease N Endometriosis N Liver Disease N Dialysis N Schizophrenia N Speech Delay N Chronic Obstructive Pulmonary Disease N Parkinson's Disease N Thyroid Problems N GI Problems N Developmental Delay N Anemia N Immune System Disorder N Multiple Sclerosis N Colon Polyps N Heart Attack ([place]) N Diabetes N Cardiomyopathy N Blood Transfusions N Heart Problems/Murmur N Eye Trauma N Congestive Heart Failure (CHF) N Valvular Heart Disease N Hyperlipidemia N Double Vision N Abuse/Domestic Violence N Hepatitis B N Lupus N Epilepsy/Seizures N Reflux/GERD N Aneurysm N Bronchitis N Heart Disease N Hypertension N Pre-Eclampsia N Heart Failure N Other N Gout N High Blood Pressure N Atrial Fibrillation N Kidney Stones N Head Trauma/Injury N Congenital Heart Disease N Spine Problems N Gastrointestinal Disease N Lung Mass N Sinusitis N Obstructive Sleep Apnea N Muscle, Joint, or Bone Problems N Autoimmune disease N Vision or Eye Problems N Arthritis N Blood Clot N Cancer N Seasonal allergies N Leg or Foot Ulcers N Raynaud's Disease N Aortic Aneurysm N Arrhythmia N Headaches N Heart Problems N Ambloypia N Ear or Hearing Problems N Hyperparathyroidism N Migraines N Artificial Joints N Kidney or Bladder Problems N NSAID Use N Encephalitis N PTSD N Ulcers N Prostate Hypertrophy N Bleeding Disorder N AIDS/HIV N Urinary Tract Infection N Back Problems N Allergies N Atrial Flutter N GERD/Reflux N Hepatitis N Autism Spectrum Disorder (ASD) N Breast Cancer N Hernia N Hypothyroidism N Breast Problem N Genitourinary Disease N Deep Vein Thrombosis N Varicose Veins N Cystic Fibrosis N Hearing Loss N Developmental Problems N Carotid Disease N Vitamin D Deficiency N ADHD N Bladder or Kidney Problems N High Cholesterol N [place] N Valvular Abnormalities N Psychiatric/Mental Health Condition N Organ Transplant N Foot Deformity N Allergies/Hayfever N Dyslipidemia N Hyponatremia N Diabetic Eye Disease N Osteoporosis/Osteopenia N Back Pain N Proteinuria N Mental Illness N Neurological Problems N Ovarian Cancer N Bedwetting N Seizures/Epilepsy N Kidney Failure N Ocular trauma N Dementia N Diverticulitis N Sleep Apnea N Mental Problems N Warfarin Management N Osteoporosis N Gynecological History Statement/Question Response Abnormal Pap Yes Date of LMP 10/17/2017 On BCP's at Conception? N STIs/STDs Y HPV Vaccine Y Age at Menarche 12 Current Control Method None Age at First Child 21 Sexually Active? N Menses Monthly N Date of Last Pap Smear 05/22/2017 Sexual Problems? N LMP Desired Control Method None Obstetrics History GPAL:G 2 P 2 0 0 2 Type Value Multiple Births 0 Full Term 2 Induced 0 Spontaneous 0 Premature 0 Living 2 Ectopics 0 Total 2 Immunizations Vaccine Type Date Status Note Provider Nam e and Address Organization Details Recorded Time Tdap 02/03/2017 completed Not Available [employer] 07/06/2019 02:42:30 Past Encounters Encounter ID Performer Location Encounter Start Date Encounter Closed Date Diagnosis/Indication Diagnosis SNOMED-CT Code Diagnosis ICD10 Code Diagnosis Note [id number] Donna (CEPHALOMETRIC ANALYST) [address] [place] [address] [id number] 0 08/01/2014 15:14:48 08/01/2014 16:32:58 Exposure to sexually transmissible disorder [id number] Donna (Adult Med) [address] [place] [address] [id number] 01/02/2015 10:55:39 01/02/2015 14:08:06 Lower urinary tract infectious disease 5706825 Urogenital infection by Trichomonas vaginalis 58702611 this is an error., shall be the chlamydia. Chlamydial infection [id number] MD Donna Gray (Adult Med) [address] [place] [address] [id number] 0 04/27/2015 15:22:56 04/27/2015 17:00:05 Sexually transmitted infectious disease 5269063 A64 [id number] Karsten Thompson (CEPHALOMETRIC ANALYST) [address] [place] [address] [id number] 0 06/25/2015 10:58:23 06/25/2015 13:55:16 Gynecologic examination 15964124 Z01.419 Sexually t ransmitted infectious disease 9431666 A64 Initial pr escription of oral contraception 398237447 Z30.011 [id number] REKHA Stafford (CEPHALOMETRIC ANALYST) [address] [place] [address] [id number] 0 08/18/2015 11:37:34 08/18/2015 13:02:10 Abnormal cervical Papanicolaou smear 100485992 R87.619 Atypical s quamous cells of undetermined significance on cervical Papanicolaou smear 636513353 R87.610 Colposcopy performed yielding aceto-whit e epithelium at 12 o'clock. biopsy performed and ECC done under paracervic al clock anesthetic with 1% lidocaine. [id number] Sarah Thompson (CEPHALOMETRIC ANALYST) [address] [place] [address] [id number] 0 08/20/2015 14:42:58 08/20/2015 16:39:07 Abnormal vaginal bleeding 110658519 N93.9 Patient had intercours e 48 hours after cervical biopsy and ECC. Monsills applied to cervix. Bleeding stopped. Acute tonsillitis 444398 08 J03.90 Complainin g of sore throat. Enlarged tonsills noted. Will cover with Keflex 500mg tabs One PO QID x seven days. [id number] REKHA Stafford [facility] (CEPHALOMETRIC ANALYST) [address] [place] [address] [id number] 0 08/26/2015 14:57:13 08/27/2015 14:52:31 Abnormal cervical Papanicolaou smear 060828259 R87.619 08/26/15 Discussed results from colposcopi c cervical biopsy and ECC. Mild dysplasia found, normal ECC. Plan: conservati ve management with repeat Pap in six months for followup, Questions answered. [id number] Karsten Thompson (CEPHALOMETRIC ANALYST) [address] [place] [address] [id number] 0 10/02/2015 15:49:17 10/05/2015 15:08:48 Venereal disease screening 367561809 Z11.3 Cervical intraepithelial neoplasia grade 1 848789713 N87.0 [id number] Karsten Marcelino Donna (CEPHALOMETRIC ANALYST) [address] [place] [address] [id number] 0 03/18/2016 14:13:26 03/23/2016 12:01:39 Abnormal cervical Papanicolaou smear 417573039 R87.619 08/26/15 Discussed results from colposcopi c cervical biopsy and ECC. Mild dysplasia found, normal ECC. Plan: conservati ve management with repeat Pap in six months for followup, Questions answered. [id number] Jamison Harmonmelvi Thompson (CEPHALOMETRIC ANALYST) [address] [place] [address] [id number] 0 05/03/2016 09:31:13 05/04/2016 11:40:02 Abnormal cervical Papanicolaou smear 217176413 R87.619 [facility] surveillance 193802094 Z30.09 [id number] REKHA Raza (Adult Med) [address] [place] [address] [id number] 0 07/18/2016 15:55:00 07/18/2016 17:22:37 Recurrent acute tonsillitis 048658122 J03.91 [id number] MD Donna Reyna (CEPHALOMETRIC ANALYST) [address] [place] [address] [id number] 0 09/07/2016 11:03:22 09/07/2016 16:56:32 Routine care 886357364 Z34.91 Morning sickness 2323966 6 O21.9 Cervicovag inal cytology: Low grade squamous intraepithelial lesion 552546098 R87.612 H/O LGSIL. S/P COLPOSCOPY Positive s creening for depression on PHQ-9 (Patient Health Questionnaire 9) 8892503610 49348 Z13.89 counseled about it. denies suicidal or homicidal thoughts. [id number] MD Donna Reyna (CEPHALOMETRIC ANALYST) [address] [place] [address] [id number] 0 09/30/2016 10:52:31 09/30/2016 11:26:22 Routine care 457122097 Z34.91 [id number] MD Donna Reyna (CEPHALOMETRIC ANALYST) [address] [place] [address] [id number] 0 10/05/2016 14:06:04 10/06/2016 12:58:21 Routine care 893182078 Z34.91 [id number] MD Donna Reyna (CEPHALOMETRIC ANALYST) [address] [place] [address] [id number] 0 11/02/2016 13:42:41 11/03/2016 16:21:25 Routine care 086514131 Z34.91 Cervicovag inal cytology specimen unsatisfactory 383068699 R87.880 [id number] [facility]) [address] [place] [address] [id number] 0 11/30/2016 15:29:36 12/02/2016 14:15:57 Routine care 562555094 Z34.91 reviewed anatomy ultrasound - growth 10.9 %. D/W patient. Will repeat ultrasound for growth and dopplers [id number] MD Donna Reyna (CEPHALOMETRIC ANALYST) [address] [place] [address] [id number] 0 12/28/2016 15:32:29 12/28/2016 16:46:04 Routine care 774697662 Z34.91 [id number] [facility] (CE[facility]ETRIC ANALYST) [address] [place] [address] [id number] 0 02/03/2017 09:35:46 02/03/2017 11:24:16 Diabetes mellitus screening 636526697 Z13.1 Routine an tenatal care 614601755 Z34.91 Acid reflux 710691049 K2 1.9 with nausea [id number] Donna (CEPHALOMETRIC ANALYST) [address] [place] [address] [id number] 0 02/23/2017 15:37:23 02/24/2017 10:34:58 Routine care 285044941 Z34.91 Bacterial vaginosis 4197 23740 N76.0 US obstetr ic scan abnormal 582276486 O28.3 INTRA CARDIAC FOCI. Counseled about it. M consult [id number] MD Donna Reyna (CEPHALOMETRIC ANALYST) [address] [place] [address] [id number] 0 03/10/2017 15:45:22 03/10/2017 16:07:37 Routine care 555778842 Z34.91 [id number] MD Donna Reyna (CEPHALOMETRIC ANALYST) [address] [place] [address] [id number] 0 03/24/2017 15:39:54 03/24/2017 16:27:31 Routine care 961799602 Z34.93 Bacterial vaginosis 4197 78782 N76.0 COUNSELED ABOUT IT. [id number] MD Donna Reyna (CEPHALOMETRIC ANALYST) [address] [place] [address] [id number] 0 03/31/2017 15:34:07 03/31/2017 16:11:31 Routine care 773284635 Z34.93 [id number] Jamison Thompson (CEPHALOMETRIC ANALYST) [address] [place] [address] [id number] 0 04/06/2017 16:45:28 04/06/2017 17:17:21 Routine care 770570734 Z34.83 [id number] Jamison Thompson (CEPHALOMETRIC ANALYST) [address] [place] [address] [id number] 0 04/13/2017 16:18:58 04/13/2017 17:15:12 Routine care 127994689 Z34.83 [id number] [facility] (CEPHAL[facility]ETR[facility] A[facility]LYST) [address] [place] [address] [id number] 0 05/22/2017 14:47:41 05/22/2017 17:25:12 care 254023965 Z39.2 Exposure t o sexually transmissible disorder 511118129 Z20.2 Uses depot contraception 695937206 Z30.000 [id number] Jamison Thompson (CEPHALOMETRIC ANALYST) [address] [place] [address] [id number] 0 11/30/2017 11:27:23 11/30/2017 14:04:09 Exposure to sexually transmissible disorder 997019615 Z20.2 Family jad nning surveillance 190277108 Z30.09 Health Concerns Section Related Observation LastModified by Organization Detai ls LastModified Time None Recorded Concern Status LastModified by Organization Details LastModified Time None Recorded Advance Directives Directive N: Payers Encounter Date Sequence Insurance Name Policy Number Policy Fox Covered Member ID Fox Member ID Guarantor Name 03/31/2017 1 [facility] PRIOR TO 12/17/2020 (MEDICAID REPLACEMENT - HMO) Socorro Newell [id number] Socorro Newell 04/06/2017 1 [facility] PRIOR TO 12/17/2020 (MEDICAID REPLACEMENT - HMO) Socorro Newell [id number] Socorro Newell 04/13/2017 1 [facility] PRIOR TO 12/17/2020 (MEDICAID REPLACEMENT - HMO) Socorro Newell [id number] Socorro Newell 05/22/2017 1 [facility] PRIOR TO 12/17/2020 (MEDICAID REPLACEMENT - HMO) Socorro Newell [id number] Socorro Newell 11/30/2017 1 [facility] PRIOR TO 12/17/2020 (MEDICAID REPLACEMENT - HMO) Socorro Newell [id number] Socorro Newell Notes Date Note Type Note Provider Name and Address Organization Details Recorded Time 7 text/html OB ProblemReported bypatient.Associated Symptoms:no abdominal pain; no cramping; no contractions; normal movement; no bleeding; no ROM; no vaginal discharge; no vaginal/vulvar itching or irritation; no dysuria; no frequency; no urgency; no hematuria; no fever; no nausea; no emesis; no constipation; no diarrhea/loose stool; no edema; no visual changes; no headache; no dizziness; SHE SAY SHE IS TAKING ZANTAC EVERY DAY AND HER NAUSEA IMPROVED. DENIES ANY NAUSEA AND VOMITING RECENTLY 26 y/o wf JENNIFER 36.3 Maryanne Braxton MD Attn: Accounting,[address] [place], [address], [facility] 03/31/2017 16:10:26 7 text/html OB ProblemReported bypatient.Associated Symptoms:no abdominal pain; no cramping; no contractions; normal movement; no bleeding; no ROM; no vaginal discharge; no vaginal/vulvar itching or irritation; no dysuria; no frequency; no urgency; no hematuria; no fever; no nausea; no emesis; no constipation; no diarrhea/loose stool; no edema; no visual changes; no headache; no dizziness; SHE SAY SHE IS TAKING ZANTAC EVERY ONCE IN A WHILE AND HER NAUSEA IMPROVED. DENIES ANY NAUSEA AND VOMITING RECENTLY 26 y/o CF JENNIFER 37.2 . h/o vag delivery Jamison tadeo, [facility] 04/07/2017 16:42:01 7 text/html OB ProblemReported bypatient.Associated Symptoms:no abdominal pain; no cramping; no contractions; normal movement; no bleeding; no ROM; no vaginal discharge; no vaginal/vulvar itching or irritation; no dysuria; no frequency; no urgency; no hematuria; no fever; no nausea; no emesis; no constipation; no diarrhea/loose stool; no edema; no visual changes; no headache; no dizziness; SHE SAY SHE IS TAKING ZANTAC EVERY ONCE IN A WHILE AND HER NAUSEA IMPROVED. DENIES ANY NAUSEA AND VOMITING RECENTLY 26 y/o CF JENNIFER 38.2 . h/o vag delivery Jamison tadeo, [facility] 04/13/2017 17:56:20 7 text/html VisitReported bypatient.Associated Symptoms:no abnormal bleeding; no pelvic pain; laceration well healed; no constipation; no fecal incontinence; no dysuria; no urinary incontinence; no fever; no problems; no mastitis 26 yo presents for PPP Jamison tadeo, [facility] 05/22/2017 18:12:04 8 text/html 26 yo presents for vag dc Jamison tadeo [facility] 11/30/2017 14:21:12 8 text/html Vaginal DischargeReported bypatient.Associated Symptoms:no vaginal itching; no vaginal burning; no swelling/redness; no fever/chills; no diarrhea; no abdominal pain; no pelvic pain; no vaginal pain; no pain during urination; no pain during intercourse; no vaginal lump; no genital lesion; no sexually transmitted disease; no fever ARIANA Allen - [facility] 11/30/2017 14:21:12 OBGyn Episode Ob Episode Information Episode Created Date Number of Fetuses Patient Bloodtype Patient rh Status Prepregnancy Weight lbs Domestic Partner Domestic Partner Phone Father Name Manager Of Merchandising Status 06/25/19 16 1 CLOSED Fetus Data First Name Last Name Admitted to NICU Weight (g) Sex Living Outcome Pediatric Complications Fetus ID Race Codes Race Delivery Type 3316.89 15 M Full Term [id number] Vaginal Blair Calculation Initial Blair Date Initial Exam Date Initial Exam Provider Initial Ultrasound Date Last Menstrual Period Date Ultra Sound Weeks Gestation 0 Eighteen To Twenty Week Blair Update Ultra Sound Date Fundal Height At Umbil Quickening Date Ultra Sound Latest Weeks Gestation Final Blair Confirmed By Final Blair Confirmed Date Final Blair Date Ultra Sound Latest Days Gestation 0 0 Menstrual History Last Menstrual Date Menses Monthly On Bcp Conception Prior Menses Frequency Hcg Plus Date Menarche Onset Age Delivery Information Delivery Date Delivery Type Labor Anesthesia Weeks Gestation Incision Type Labor Labor Length Hrs Delivered By Post Complications Tubal Sterilization Discharge Date Comments 2 Regional-Ep idural 40 false 6 [place] Discharge Information Feeding Method Contraceptive Method Maternal HG B and HCT Levels Ob Episode Information Episode Created Date Number of Fetuses Patient Bloodtype Patient rh Status Prepregnancy Weight lbs Domestic Partner Domestic Partner Phone Father Name Manager Of Merchandising Status 09/08/19 17 1 O Positive 134 ute o salcedo undecided CLOSED Fetus Data First Name Last Name Admitted to NICU Weight (g) Sex Living Outcome Pediatric Complications Fetus ID Race Codes Race Delivery Type Jamin do Salcedo 111 false 3401.94 M true Full Term [id number] 2106-3 White Vaginal Blair Calculation Initial Blair Date Initial Exam Date Initial Exam Provider Initial Ultrasound Date Last Menstrual Period Date Ultra Sound Weeks Gestation 04/25/2017 09/07/2016 maris 10/11/2016 07/26/2016 12 Eighteen To Twenty Week Blair Update Ultra Sound Date Fundal Height At Umbil Quickening Date Ultra Sound Latest Weeks Gestation Final Blair Confirmed By Final Blair Confirmed Date Final Blair Date Ultra Sound Latest Days Gestation 0 maris 10/13/2016 04/25/20 17 0 Pre- Flowsheet Flowsheet Date 09/07/2016 Kahn Score Blood Edema Fundus Height Fundus Units Glucose Ketones Leukocytes Nitrite Labor Signs Protein Cervic Dilation Cervic Effacement Cervic Station neg none 7 cm none negative none neg 0cm 0% - 4 Type Weight in lbs Pre/Post Dialysis Refused 134.608090015345 BP Diastolic BP Location Tested BP Systolic BP Type 62 78 sitting Fetus Heart Rate Present Fetus Movement A No Comments C/O NAUSEA AND VOMITING. SHE SAY SHE FEELS DIZZY IF SHE STANDS FOR PROLONGED TIME AND WITH SUDDEN CHANGE IN POSITION. COUNSELED ABOUT POSTURAL HYPO-TENSION. ADVISED TO CHANGE POSITIONS SLOWLY. COUNSELED ABOUT NAUSEA AND VOMITING OF . ADVISED SMALL FREQUENT MEALS, FRANCISCO J. Flowsheet Date 09/30/2016 Kahn Score Blood Edema Fundus Height Fundus Units Glucose Ketones Leukocytes Nitrite Labor Signs Protein Cervic Dilation Cervic Effacement Cervic Station Type Weight in lbs Pre/Post Dialysis Refused BP Diastolic BP Location Tested BP Systolic BP Type Fetus Heart Rate Present Fetus Movement Comments Flowsheet Date 10/05/2016 Kahn Score Blood Edema Fundus Height Fundus Units Glucose Ketones Leukocytes Nitrite Labor Signs Protein Cervic Dilation Cervic Effacement Cervic Station neg none 11 cm none negative none neg 0cm 0% - 4 Type Weight in lbs Pre/Post Dialysis Refused 133.188751444720 BP Diastolic BP Location Tested BP Systolic BP Type 60 84 sitting Fetus Heart Rate Present A 172 Present Fetus Movement A Yes Comments she say she went to ER for s potting after intercourse on 09/29/16. she was given IV fluids and was sent home. she say her spotting stopped. advised pelvic rest. SSE - CX closed no bleeding. Await for ultrasound. she say she has appointment for it. She say her nausea and vomiting getting better on zofran. D/W patient lab work, pap and nu swab result. Flowsheet Date 11/02/2016 Kahn Score Blood Edema Fundus Height Fundus Units Glucose Ketones Leukocytes Nitrite Labor Signs Protein Cervic Dilation Cervic Effacement Cervic Station neg none 15 wks none negative none neg 0cm 0% - 4 Type Weight in lbs Pre/Post Dialysis Refused 134.575939269758 BP Diastolic BP Location Tested BP Systolic BP Type 60 102 sitting Fetus Heart Rate Present A 153 Present Fetus Movement A No Comments Discussed ultrasound results with the patient. Flowsheet Date 11/30/2016 Kahn Score Blood Edema Fundus Height Fundus Units Glucose Ketones Leukocytes Nitrite Labor Signs Protein Cervic Dilation Cervic Effacement Cervic Station neg none 20 cm none negative none neg Type Weight in lbs Pre/Post Dialysis Refused 141.968404676461 BP Diastolic BP Location Tested BP Systolic BP Type 60 102 sitting Fetus Heart Rate Present A 147 Present Fetus Movement A No Comments reviewed anatomy ultrasound - growth 10.9 %. D/W patient. Will repeat ultrasound for growth and dopplers.D/W patient PAP result. Counseled about it and HPV. Safe sex counseling done. Flowsheet Date 12/28/2016 Kahn Score Blood Edema Fundus Height Fundus Units Glucose Ketones Leukocytes Nitrite Labor Signs Protein Cervic Dilation Cervic Effacement Cervic Station neg none 22 cm none negative none neg Type Weight in lbs Pre/Post Dialysis Refused [id number] BP Diastolic BP Location Tested BP Systolic BP Type 66 104 sitting Fetus Heart Rate Present A 148 Present Fetus Movement A Yes Comments She say she went to ER for S OB and she had chest xray done - which is normal. Reviewed labs - normal BMP. Advised Ms. Bender to get records from [facility]. She say she was given albuterol inhaler and her SOB improved after using it, She say she refused to do CT chest at that time. Gave patient peak flow meter to check peak flows every weak. Counselled about different causes of SOBShe say she has appointment and ultrasound with [facility] on 01/11/17.PTL, PREECLAMPSIA PRECAUTIONS DISCUSSED Flowsheet Date 02/03/2017 Kahn Score Blood Edema Fundus Height Fundus Units Glucose Ketones Leukocytes Nitrite Labor Signs Protein Cervic Dilation Cervic Effacement Cervic Station neg none 28 cm none negative none neg Type Weight in lbs Pre/Post Dialysis Refused [id number] BP Diastolic BP Location Tested BP Systolic BP Type 54 102 sitting Fetus Heart Rate Present A 142 Present Fetus Movement A Yes Comments c/o nausea when she lies miguel n and improves when she sits up associated with acid reflex. counseled about it. zantac.1 hr GTT, cbc todayshe received Tdap Flowsheet Date 02/23/2017 Kahn Score Blood Edema Fundus Height Fundus Units Glucose Ketones Leukocytes Nitrite Labor Signs Protein Cervic Dilation Cervic Effacement Cervic Station neg none 30.5 cm none negative none neg 0cm 0% - 4 Type Weight in lbs Pre/Post Dialysis Refused [id number] BP Diastolic BP Location Tested BP Systolic BP Type 68 100 sitting Fetus Heart Rate Present A 148 Present Fetus Movement A Yes Comments PTL, PREECLAMPSIA PRECAUTION S AND KICK COUNTS DISCUSSED.SHE SAY SHE IS TAKING ZANTAC OFF AND ON. SHE SAY WHEN SHE TAKES IT SHE DOES NOT HAVE NAUSEA OR VOMITING. WHEN SHE DOES NOT TAKE IT SHE GETS NAUSEOUS AND SOMETIMES VOMITING. ADVISED PATIENT TO CONTINUE ZANTAC EVERY DAY. IF NO IMPROVEMENT WILL ORDER ULTRASOUND ABDOMEN NEXT VISIT.C/O VAGINAL ODOR - BV +VE TODAY - FLAGYL PRESCRIBED.REVIEWED ULTRASOUND - INTRACARDIAC FOCI. SHE SAY SHE DID NOT FOLLOW UP ON REPEAT ULTRASOUND. SHE SAY SHE DID NOT SEE MFM. MFM CONSULT PLACED TODAY Flowsheet Date 03/10/2017 Kahn Score Blood Edema Fundus Height Fundus Units Glucose Ketones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
--- OUTSIDE RECORDS SUMMARY | 2024-09-05 07:03 | XMS_ITS | Clinical Summary ---
Author Organization [facility] Address [address] [place] [address] Care Team Providers Care Head Tennis Coach Name Role Phone Unknown, Provider Primary Care Provider Unavaila ble Source Comments [facility],non-owned Affiliates and Associated Physician Practices is amultiple site organization consisting of ambulatory clinics and hospital sitesin [place], [place], [place] and [place]. This disclosure is being madepursuant to the Care Everywhere program and may not contain all information available regarding this patient. Last updated 18.[facility] Allergies Active Allergy Reactions Criticality Noted Date [...] echogenic focus 03/03/2017 Supervision of normal in [facility] er 03/03/2017 Social History Tobacco Use Types Packs/Day Years Used Date Smoking Tobacco: Never Sex and Gender Information Value Date Recorded Sex Assigned at Not on file Gender Identity Not on file Sexual Orientation Not on file Last Filed Vital Signs Vital Sign Reading Time Taken Comments Blood Pressure 106/68 07/07/2016 12:06 PM CAB STARTER Pulse 78 07/07/2016 12:06 PM CAB STARTER Temperature 36.8 C (98.2 F) 07/07/2016 12:06 PM CAB STARTER Respiratory Rate 18 07/07/2016 12:06 PM CAB STARTER Oxygen Saturation - - Inhaled Oxygen Concentration - - Weight 63.5 kg (140 lb) 07/07/2016 12:06 PM CAB STARTER Height 162.6 cm (5' 4 ) 07/07/2016 12:06 PM CAB STARTER Body Mass Index 24.03 07/07/2016 12:06 PM CAB STARTER Plan of Treatment Health Maintenance Due Date [...] to complete this topic MENINGOCOCCAL (Group B) VACC INE SHARED DECISION-MAKING Aged Out No longer eligibl e based on patient's age to complete this topic MENINGOCOCCAL GROUPS A/C/Y/W VACCINE Aged Out No longer eligible b ased on patient's age to complete this topic PNEUMOCOCCAL VACCINE Aged Out No long er eligible based on patient's age to complete this topic Care Teams Head Tennis Coach Relationship Specialty Start Date End Date Unknown, Provider PCP - General 07/07/16
--- OUTSIDE RECORDS SUMMARY | 2024-09-05 07:03 | XMS_ITS | CONTINUITY OF CARE DOCUMENT ---
Author Name chad bonilla Address Unknown Organization [facility] Address [address] [place] [address] Phone [phone] Care Team Providers Care Case Finishing Machine Adjuster Name Role Phone Eduardo Villarreal MD Unavailable GALILEA ZUÑIGA, NANCY Unavailable [phone] INSURANCE PROVIDERS Payer name Policy type / Coverage type Chrissy red green party ID [place] MEDICAID (2) Medicaid [id number]
--- NOTE | 2024-09-05 07:26 | ED.HEATRA ---
HPI - Head Injury General Chief complaint: Head Injury Stated complaint: left sided head and nose pain from fall Time Seen by Provider: 09/05/24 07:24 Source: patient Mode of arrival: ambulatory Limitations: no limitations History of Present Illness HPI Narrative: Patient missed step while going downstairs, landed down 4 steps, complaining of left occipital and parietal pain, nasal and forehead pain, 5 days ago, complaining of constant headache and nausea. She denies loss of consciousness, or other injuries. Related Data Home Medications ?Medication ?Instructions ?Recorded ?Confirmed ?Last Taken ?Type Saccharomyces boulardii 250 mg 250 mg PO BID 11/17/22 08/07/24 Unknown History capsule (Daily Probiotic (S. boulardii)) biotin 10,000 mcg chewable tablet mcg PO 11/17/22 08/07/24 Unknown History (Hair, Skin and Nails (biotin)) d-mannose 500 mg capsule (AZO mg PO 11/17/22 08/07/24 Unknown History D-Mannose) Allergies Allergy/AdvReac Type Severity Reaction Status Date / Time sulfamethoxazole Allergy Mild Hives Verified 08/07/24 08:55 clindamycin Allergy Unknown Hives Verified 08/07/24 08:55 Sulfa (Sulfonamide Allergy Unknown Hives Verified 08/07/24 08:55 Antibiotics) trimethoprim Allergy Unknown Hives Verified 08/07/24 08:55 Review of Systems Review of Systems: All systems reviewed & are unremarkable except as noted in HPI and below PMFSH Past Medical History Medical History Abnormal Pap smear of cervix 08/30/21, LSIL, HPV pos HSV (herpes simplex virus) infection Type 1 Vaginal delivery x4 Acid reflux Post depression Surgical History Surgical History History of tubal ligation 11/28/19 Family History Family History Mother Hypertension Breast cancer Asthma COPD (chronic obstructive pulmonary disease) Anxiety Neuropathy Back pain Father COPD (chronic obstructive pulmonary disease) Asthma Hypertension Thyroid disease Social History Social History Smoking status: Never smoker Alcohol intake: never Substance use: never Substance use type: does not use Lack of Transportation: No Lack of Food: Never True Current Housing: I Have Housing Concerned About Future Housing: No Difficulty Paying Gas/Electric Bills: No Difficulty Paying for Meds: No Currently Unemployed: No Education: High School Diploma/GED Gender identity (if verbalized by the patient): Female Spiritual care concerns: No Agree to blood products: Yes Exam Narrative: General appearance: Well-developed, well-nourished Skin: Normal color Head: Normocephalic, nontraumatic, diffuse tenderness left occipital and left parietal area Eyes: Clear conjunctiva ENT: Oropharynx normal, ears normal, nose normal Neck: Supple, nontender Chest and respiratory: Airway patent, no respiratory distress, no accessory muscle use Heart: Regular rate/rhythm Abdomen: Soft, nontender, no organomegaly, quiet bowel sounds Vascular: Normal peripheral pulses, normal capillary refill. 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 is normal as tested, no gross motor deficit Course Vital Signs Vital signs: Vital Signs Temperature 36.4 C L 09/05/24 07:01 Pulse Rate 94 09/05/24 07:01 Respiratory Rate 18 09/05/24 07:01 Blood Pressure 129/79 09/05/24 07:01 Pulse Oximetry 100 09/05/24 07:01 Oxygen Delivery Room Air 09/05/24 07:01 Temperature 36.4 C L 09/05/24 07:01 Pulse Rate 94 09/05/24 07:01 Respiratory Rate 18 09/05/24 07:01 Blood Pressure 129/79 09/05/24 07:01 Pulse Oximetry 100 09/05/24 07:01 Oxygen Delivery Room Air 09/05/24 07:01 MDM - Head Injury MDM Narrative Medical decision making narrative: Patient had a fall 5 days ago, complaining of headache pain at the forehead and nose CT head and CT facial bone showed Differential Diagnosis Differential diagnosis: Likely concussion without loss of consciousness, closed head injury and other Imaging Data Radiologist's impression: CT head and CT facial bones showed no acute abnormality Critical Care Time Critical Care Time Critical Care Time: No Discharge Plan Discharge Clinical Impression: CHI (closed head injury) Patient Disposition: Home, Self-Care Condition: Stable Instructions: Concussion (ED), Head Injury (ED) Additional Instructions: Return if symptoms are worsening , call your family physician for appointment, take Tylenol, ibuprofen as as needed for aches and pain, continue home medications. Patient Language: Occitan Prescriptions: No Action Hair, Skin and Nails (biotin) 10,000 mcg tablet,chewable PO Saccharomyces boulardii [Daily Probiotic (S. boulardii)] 250 mg capsule 250 mg PO BID AZO D-Mannose 500 mg capsule PO omeprazole 20 mg capsule,delayed release(DR/EC) 20 mg PO DAILY Qty: 90 0RF ondansetron HCl 4 mg tablet 4 mg PO Q6H PRN (Reason: nausea and vomiting) Qty: 14 0RF Follow-up/Referrals: Tawny Fritz APRN [Primary Care Provider] -
--- OUTSIDE RECORDS SUMMARY | 2024-09-05 07:42 | XMS_ITS | Data Portability ---
Author Organization [facility] Address [address] [place] [address] [place] [address] Assessment No assessment recorded. Plan of Treatment Reminders Order Date Submit Date Provider Last Modified By Organization Details Last Modified Time Details Appointments None record ed. Lab None record ed. Referral None record ed. Procedures None record ed. Surgeries None record ed. Imaging None record ed. Medication Orders None record ed. Patient TargetsNo targets recorded. Patient InstructionsNo instructions recorded. Reason for Referral None Reported. Results Created Date Observation Date Name Description Value Unit Range Abnormal Flag Note LastModifiedBy Organization Detail LastModifiedTime 10/21/19 20 10/22/2019 bacte rial vagin osis + vagin itis panel , vagin al radha sp. Not Detect ed normal Trich omona s vagin yfn: DNA testi ng perfo rmed by Trans cript ion Media silviano Ampli ficat ion (TMA) These resul ts shoul d be inter prete d in light of all clini gloria and labor atory findi ngs. This assay is highl y accur ate, but rare false posit michael and negat michael resul ts may occur . Posit michael resul ts in low preva lence popul ation s may requi re re-ev aluat ion. A negat michael resul t does not precl ude a possi ble infec tion due to a speci men inade quacy or sampl ing error . Test perfo rmed by [facility], d/b/a [facility] serrano, [address], [place] [address] , Iván Moscoso ra, DO, Labor atory Direc tor. Latia fam a vagin yfn, Eladia da speci es: Genom ic DNA is isola silviano from patie nt speci mens by stand cristina labor atory techn iques and veronika zed using custo m OpenA rray plate s, perfo rmed on the Quant Studi o 12K Flex Real Time PCR syste m. A posit michael resul t is provi ded for patho genic bacte saadia, virus and/o r funga l speci es based on detec tion of ampli ficat ion produ cts. Jessica l vagin al dinorah resul ts of Jessica l or [place] silviano are deter mined by calcu latin g the ratio of the organ ism to the total bacte saadia prese nt in the speci men, and fabiano ring that ratio to a PathG roup patie nt popul ation . Overa ll resul ts of Jessica l, Borde rline and Abnor mal are deter mined using a proba bilit y model which was devel oped by an exten sive veronika sis and integ ratio n of clini gloria thres holds for marke r organ isms on a large set of sympt omati c & asymp tomat ic speci mens. Patie nt popul ation s with diffe rent demog raphi cs from the PathG roup model popul ation may have diffe rent indic ator organ isms with diffe rent relat michael ratio s, which would influ ence the final resul ts. Resul ts shoul d be inter prete d in the sasha xt of all clini gloria and labor atory findi ngs. The test was devel oped and its perfo rmanc e bonifacio cteri stics deter mined by [facility] [employer] [facility] [employer] d/b/a [facility] roup. It has not been clear ed or appro sotero by the U.S. Food and Drug Admin istra tion. The FDA has deter mined that such clear ance or appro salome is not neces margarito. Perti nent refer ence inter vals are avail able from the labor atory on reque st. Test( s) perfo rmed by [facility], [facility], d/b/a [facility], [address], [place] [address] , Iván Moscoso ra, DO, Labor atory Direc tor. Not Available [facility] ([facility]) [address], [place], [address], 10/23/2019 07:37:19 10/21/19 20 10/22/2019 bacte rial vagin osis + vagin itis panel , vagin al gardnerella vaginalis Detect ed abnormal Trich omona s vagin yfn: DNA testi ng perfo rmed by Trans cript ion Media silviano Ampli ficat ion (TMA) These resul ts shoul d be inter prete d in light of all clini gloria and labor atory findi ngs. This assay is highl y accur ate, but rare false posit michael and negat michael resul ts may occur . Posit michael resul ts in low preva lence popul ation s may requi re re-ev aluat ion. A negat michael resul t does not precl ude a possi ble infec tion due to a speci men inade quacy or sampl ing error . Test perfo rmed by [facility], [facility], d/b/a [facility], [address], [place] [address] , Iván Moscoso ra, , Labor atory Direc tor. Gardn erell a vagin yfn, Eladia da speci es: Genom ic DNA is isola silviano from patie nt speci mens by stand cristina labor atory techn iques and veronika zed using custo m OpenA rray plate s, perfo rmed on the Quant Studi o 12K Flex Real Time PCR syste m. A posit michael resul t is provi ded for patho genic bacte saadia, virus and/o r funga l speci es based on detec tion of ampli ficat ion produ cts. Jessica l vagin al dinorah resul ts of Jessica l or [place] silviano are deter mined by calcu latin g the ratio of the organ ism to the total bacte saadia prese nt in the speci men, and fabiano ring that ratio to a PathG roup patie nt popul ation . Overa ll resul ts of Jessica l, Borde rline and Abnor mal are deter mined using a proba bilit y model which was devel oped by an exten sive veronika sis and integ ratio n of clini gloria thres holds for marke r organ isms on a large set of sympt omati c & asymp tomat ic speci mens. Patie nt popul ation s with diffe rent demog raphi cs from the PathG roup model popul ation may have diffe rent indic ator organ isms with diffe rent relat michael ratio s, which would influ ence the final resul ts. Resul ts shoul d be inter prete d in the sasha xt of all clini gloria and labor atory findi ngs. The test was devel oped and its perfo rmanc e bonifacio cteri stics deter mined by [employer], [employer] d/b/a [facility] roup. It has not been clear ed or appro sotero by the U.S. Food and Drug Admin istra tion. The FDA has deter mined that such clear ance or appro salome is not neces margarito. Perti nent refer ence inter vals are avail able from the [facility] atory on reque st. Test( s) perfo rmed by [facility] [employer], d/b/a [facility] roup, [address], [place] [address] , Iván Moscoso ra, DO, Labor atory Direc tor. Not Available [facility]) [address], [place], [address], 10/23/2019 07:37:19 10/21/19 20 10/22/2019 bacte rial vagin osis + vagin itis panel , vagin al trichomonas vaginalis, aptima (panther) NOT DETECT ED normal Trich omona s vagin yfn: DNA testi ng perfo rmed by Trans cript ion Media silviano Ampli ficat ion (TMA) These resul ts shoul d be inter prete d in light of all clini gloria and labor atory findi ngs. This assay is highl y accur ate, but rare false posit michael and negat michael resul ts may occur . Posit michael resul ts in low preva lence popul ation s may requi re re-ev aluat ion. A negat michael resul t does not precl ude a possi ble infec tion due to a speci men inade quacy or sampl ing error . Test perfo rmed by [facility], d/b/a [facility], [address], [place] [address] , Iván Moscoso ra, DO, Labor atory Direc tor. Gardn erell a vagin yfn, Eladia da speci es: Genom ic DNA is isola silviano from patie nt speci mens by stand cristina labor atory techn iques and veronika zed using custo m OpenA rray plate s, perfo rmed on the Quant Studi o 12K Flex Real Time PCR syste m. A posit michael resul t is provi ded for patho genic bacte saadia, virus and/o r funga l speci es based on detec tion of ampli ficat ion produ cts. Jessica l vagin al dinorah resul ts of Jessica l or [place] silviano are deter mined by calcu latin g the ratio of the organ ism to the total bacte saadia prese nt in the speci men, and fabiano ring that ratio to a PathG roup patie nt popul ation . Overa ll resul ts of Jessica l, Borde rline and Abnor mal are deter mined using a proba bilit y model which was devel oped by an exten sive veronika sis and integ ratio n of clini gloria thres holds for marke r organ isms on a large set of sympt omati c & asymp tomat ic speci mens. Patie nt popul ation s with diffe rent demog raphi cs from the PathG roup model popul ation may have diffe rent indic ator organ isms with diffe rent relat michael ratio s, which would influ ence the final resul ts. Resul ts shoul d be inter prete d in the sasha xt of all clini gloria and labor atory findi ngs. The test was devel oped and its perfo rmanc e bonifacio cteri stics deter mined by [employer], [employer] d/b/a PathG roup. It has not been clear ed or appro sotero by the U.S. Food and Drug Admin istra tion. The FDA has deter mined that such clear ance or appro salome is not neces margarito. Perti nent refer ence inter vals are avail able from the labor atory on reque st. Test( s) perfo rmed by [employer] [employer], [employer], d/b/a [facility], [address], [place] [address] , Iván Moscoso ra, DO, Labor atory Direc tor. Not Available [facility] [place] [facility] ([facility]) [address], [place], [address], 10/23/2019 07:37:19 11/12/19 20 11/14/2019 strep tococ cus group B DNA GB specimen source Vagina l/Rect al Not Available [facility] [place] [facility] ([facility]) [facility], [place], [address], 11/14/2019 10:51:20 11/12/19 20 11/14/2019 strep tococ cus group B DNA spec type Cultur e Swab Not Available [facility] [place] [facility] ([facility]) [facility] [facility] [address], [place], [address], 11/14/2019 10:51:20 11/12/19 20 11/14/2019 strep tococ cus group B DNA group B strep by PCR NOT DETECT ED not detect ed Inter preta tion: A posit michael resul t indic ates the detec tion of Group B Strep tococ cus DNA but not neces saril y the prese nce of viabl e organ isms; it is presu mptiv e for the prese nce of Group B Strep tococ cus. A negat michael resul t does not exclu de the possi bilit y of infec tion since very low level s of micro organ ism or sampl ing error may cause a false negat michael resul t. This assay is highl y accur ate, but rare false posit michael and false negat michael resul ts may occur . Metho dolog y: This resul t was deter mined using the FDA-c leare d BD Max GBS Assay . The BD Max GBS Assay is a quali tativ e in vitro diagn ostic test for the rapid detec tion of Group B Strep tococ cus (GBS) DNA in vagin al/re ctal speci mens from prepa rtum or intra partu m women utili zing real- time PCR. Perfo rmed by [facility], d/b/a Brook serrano, [address], [place] [address] , Iván Moscoso ra, DO, Labor atory Direc tor. Not Available [facility] ([facility]) [address], [place], [address], 11/14/2019 10:51:20 11/19/19 20 11/20/2019 CT + NG DNA, PCR, unspe cifie d speci men trichomonas vaginalis, aptima (panther) NOT DETECT ED normal DNA testi ng perfo rmed by Trans cript ion Media silviano Ampli ficat ion (TMA) These resul ts shoul d be inter prete d in light of all clini gloria and labor atory findi ngs. This assay is highl y accur ate, but rare false posit michael and negat michael resul ts may occur . Posit michael resul ts in low preva lence popul ation s may requi re re-ev aluat ion. A negat michael resul t does not precl ude a possi ble infec tion due to a speci men inade quacy or sampl ing error . Test perfo rmed by [facility] [employer], d/b/a [facility]lei serr[facility], [address], [place] [address] , Iván Moscoso ra, , Labor atory Direc tor. Not Available [facility]) [address], [place], [address], 11/20/2019 17:07:09 11/19/19 20 11/20/2019 CT + NG DNA, PCR, unspe cifie d speci men neisseria gonorrhoeae, aptima NOT DETECT ED normal DNA testi ng perfo rmed by Trans cript ion Media silviano Ampli ficat ion (TMA) These resul ts shoul d be inter prete d in light of all clini gloria and labor atory findi ngs. This assay is highl y accur ate, but rare false posit michael and negat michael resul ts may occur . Posit michael resul ts in low preva lence popul ation s may requi re re-ev aluat ion. A negat michael resul t does not precl ude a possi ble infec tion due to a speci men inade quacy or sampl ing error . Test perfo rmed by [facility] [employer] [employer], d/b/a [facility], [address] [facility] [address], [place] [address] , Iván Moscoso ra, DO, Labor atory Direc tor. Not Available [facility] ([facility]) [address], [place], [address], 11/20/2019 17:07:09 11/19/19 20 11/20/2019 CT + NG DNA, PCR, unspe cifie d speci men chlamydia trachomatis, aptima NOT DETECT ED normal DNA testi ng perfo rmed by Trans cript ion Media silviano Ampli ficat ion (TMA) These resul ts shoul d be inter prete d in light of all clini gloria and labor atory findi ngs. This assay is highl y accur ate, but rare false posit michael and negat michael resul ts may occur . Posit michael resul ts in low preva lence popul ation s may requi re re-ev aluat ion. A negat michael resul t does not precl ude a possi ble infec tion due to a speci men inade quacy or sampl ing error . Test perfo rmed by [facility], d/b/a PathL[facility]lei serrano, [address], [place] [address] , Iván Moscoso ra, DO, Labor atory Direc tor. Not Available [facility] ([facility]) [address], [place], [address], 11/20/2019 17:07:09 Result Notes None recorded. Problems Name Problem SNOMED Code Status Onset Date Resolution Date Notes Provider Name and Address Organization Details Recorded Time Placenta previa 42636259 Active 2019 Placenta previa specifie d as w/o hemor, second trimeste r;Record ed Elsewher e: No [facility] [employer] shashank: N Practi ce ID: 0001 Jose lable Time: 02:15:00 PM Not Available [facility] 0 18:54:26 Gestatio n period, 8 weeks 49425631 Active 2018 8 weeks gestatio n of pregnanc y;Record ed Elsewher e: No Locat ion: [facility] S ource: [employer] shashank: N Practi ce ID: 0001 Jose lable Time: 03:45:00 PM Not Available [facility] 0 18:54:26 Rubella screenin g status 492894266 Active 2018 Encounte r for antenata l screenin g, unspecif ied;Gomez rded Elsewher e: No [facility] S ource: [employer] shashank: N Practi ce ID: 0001 Jose lable Time: 11:15:00 AM Not Available [facility] 0 18:54:26 Abnormal uterine bleeding [id number] 100 Active 2017 Other specifie d abnormal uterine and vaginal bleeding ;Recorde d Elsewher e: No Locat ion: Brandon bonilla [facility] S ource: [employer] shashank: N Eliseti ce ID: 0001 Jose lable Time: 03:00:00 PM Not Available [facility] 0 18:54:26 Screenin g for malignan t neoplasm of cervix Active 2010 Screenin g for malignan t neoplasm s of the cervix;R ecorded Elsewher e: No Locat ion: Brandon bonilla [facility] S ource: [employer] shashank: N Practi ce ID: 0001 Jose lable Time: 08:30:00 AM Not Available [facility] 0 18:54:26 Pregnanc y detectio n examinat ion Active 2018 Encounte r for pregnanc y test, result positive ;Recorde d Elsewher e: No Locat ion: Brandon bonilla [facility] S ource: [employer] shashank: N Eliseti ce ID: 0001 Jose lable Time: 03:45:00 PM Not Available [facility] 0 18:54:26 Antenata l screenin g for malforma tion Active 2019 Encounte r for antenata l screenin g for malforma tions;Re corded Elsewher e: No Locat ion: Brandon bonilla [facility] S ource: [employer] shashank: N Eliseti ce ID: 0001 Jose lable Time: 01:00:00 PM Not Available [facility] 0 18:54:26 Normal pregnanc y in multigra polly [id number] 4106 Active 2019 Encounte r for suprvsn of normal pregnanc y, third trimeste r;Record ed Elsewher e: No [facility] S ource: [employer] shashank: N Eliseti ce ID: 0001 Jose lable Time: 10:45:00 AM Not Available [facility] 0 18:54:27 Blood leukocyt e number above referenc e range 528976004 Active 2018 Elevated white blood cell count, unspecif ied;Gomez rded Elsewher e: No Locat ion: Brandon bonilla [facility] S ource: [employer] shashank: N Practi ce ID: 0001 Jose lable Time: 10:45:00 AM Not Available [facility] 0 18:54:27 Pregnanc y test negative 923513916 Active 2017 Encounte r for pregnanc y test, result negative ;Recorde d Elsewher e: No Locat ion: Brandon bonilla [facility] S ource: [employer] shashank: N Practi ce ID: 0001 Jose lable Time: 01:30:00 PM Not Available [facility] 0 18:54:27 Bleeding 576932279 Active 2017 Abnormal uterine and vaginal bleeding , unspecif ied;Gomez rded Elsewher e: No Locat ion: Brandon bonilla [facility] S ource: [employer] shashank: N Practi ce ID: 0001 Jose lable Time: 03:30:00 PM Not Available [facility] 0 18:54:27 Cytologi c finding 727749339 Active 2011 Papanico laou smear of cervix with low grade squamous intraepi thelial lesion (LGSIL); Recorded Elsewher e: No Locat ion: Brandon bonilla [facility] S ource: [employer] shashank: N Eliseti ce ID: 0001 Jose lable Time: 11:00:00 AM Not Available [facility] 0 18:54:27 Acute vaginiti s 88356062 Active 2018 Acute vaginiti s;Record ed Elsewher e: No Locat ion: Brandon bonilla [facility] S ource: [employer] shashank: N Practi ce ID: 0001 Jose lable Time: 11:30:00 AM Not Available [facility] 0 18:54:27 Gestatio n period, 25 weeks 47748640 Active 2019 25 weeks gestatio n of pregnanc y;Record ed Elsewher e: No Locat ion: Carleyalberto irene [facility] S ource: E[employer] shashank: N Practi ce ID: 0001 Jose lable Time: 02:15:00 PM Not Available [facility] 0 18:54:27 Speciali zed medical examinat ion Active 2010 Gynecolo gical Examinat ion;Gomez rded Elsewher e: No Locat ion: Brandon bonilla [facility] S ource: [employer] shashank: N Eliseti ce ID: 0001 Jose lable Time: 08:30:00 AM Not Available [facility] 0 18:54:27 Antenata l screenin g Active 2019 Encounte r for other antenata l screenin g follow-u p;Record ed Elsewher e: No Locat ion: Brandon bonilla [facility] S ource: [employer] shashank: N Practi ce ID: 0001 Jose lable Time: 02:15:00 PM Not Available [facility] 0 18:54:28 Threaten ed miscarri age 28248541 Active 2018 Threaten ed ;Recorde d Elsewher e: No Locat ion: Brandon bonilla [facility] S ource: [employer] shashank: N Practi ce ID: 0001 Jose lable Time: 03:15:00 PM Not Available [facility] 0 18:54:28 Pregnanc y test positive 928079311 Active 2010 Pregnanc y examinat ion or test, positive result;R ecorded Elsewher e: No [facility] S ource: E[employer] shashank: N Practi ce ID: 0001 Jose lable Time: 08:30:00 AM Not Available [facility] 0 18:54:28 Finding of contents of cervix 476821108 Active 2018 Weeks of gestatio n of pregnanc y not specifie d;Record ed Elsewher e: No Locat ion: [facility] irene [facility] S ource: E[employer] shashank: N Practi ce ID: 0001 Jose lable Time: 03:15:00 PM Not Available [facility] 0 18:54:28 anatomy study Active 2011 S[facility]N ANATMC SURVEY;P ractice ID: 0001 Not Available [facility] 0 18:54:28 Primigra polly 503703436 Active 2011 Supervis ion of normal first pregnanc y;Practi ce ID: 0001 Not Available [facility] 0 18:54:28 Nausea and vomiting 00300800 Active 2019 Nausea with vomiting , unspecif ied;Prac renetta ID: 0001 Not Available [facility] 0 18:54:31 Clinical finding Active 2019 Encntr for suprvsn of normal pregnanc y, unsp, unsp trimeste r;Practi ce ID: 0001 Not Available [facility] 0 18:54:31 Pregnanc y 25755851 Completed 201907/06/2020 [facility] 1 13:06:02 Chlamydi al infectio n 173688995 Active 2019 OMA AT 32 WEEK [facility] 0 17:21:14 Choroid plexus cyst 037520245 Completed [facility] 1 13:05:57 Notes:Desires BTL - needs to sign IDPA consent at [id number] Problem Notes None recorded. Procedures Surgical History Date Name Laterality Status Provider Name and Address Organization Details Recorded Time 0 ligation of bilateral fallopian tubes completed Deisy Polanco [facility] 12/08/2019 15:15:18 Imaging Results None recorded. Procedure Notes None recorded. Medical Equipment None Reported. Allergies Allergen ID Allergen Name Allergen Category Reaction Reaction Severity Criticality Documentation Date Start Date Code Code System Note Provider Name and Address Organization Details Recorded Time 262 sulfameth oxazole medicatio n Not available Not available Not available 10/07/[address] [facility] 0 13:58:06 93 clindamyc in Not available Not available Not available Not available 10/01/[address] [facility] 0 09:23:31 94 Substance with sulfonami de structure and antibacte rial mechanism of action (substanc e) medicatio n Not available Not available Not available 10/01/2019 71926 8003 SNOMED [facility] 0 09:23:38 95 trimethop rim medicatio n Not available Not available Not available 10/01/2019 17601 RxNorm [facility] 0 09:23:52 Medications Name Sig Start Date Stop Date Status Note LastModified by Organization Details LastModified Time Prescript ion - Prior Authoriza tion Request TAKE 1 PACK BY MOUTH EVERY DAY active Not Available Not Available No t Available amoxicill in 500 mg capsule 10/20 completed Not Available Not Available Not Available azithromy francia 250 mg tablet 10/20 completed Not Available Not Available Not Available prochlorp erazine maleate 5 mg tablet take 1 tablet by oral route every 4 hours as needed for nausea and vomiting 10/20 completed Not Available Not Available Not Available ondansetr on HCl 8 mg tablet 10/20 completed Not Available Not Available Not Available metronida zole 0.75 % (37.5 mg/5 gram) vaginal gel insert 1 applicat orful by vaginal route every day at bedtime 10/20 completed Not Available Not Available Not Available metronida zole 500 mg tablet Take 1 tablet twice a day by oral route for 7 days. 11/11 completed Not Available Not Available Not Available amoxicill in 250 mg capsule take 1 capsule by oral route every 8 hours 02/13 completed Prescrib ed Elsewher e: Yes Loca tion: [facility] odify By: claudette villarreal DateTime : 06/16/20 11 08:30:00 AM Not Available Not Available Not Available ibuprofen 600 mg tablet active Not Available Not Available Not Available Vitamin D2 1,250 mcg (50,000 unit) capsule take 1 capsule ([id number] ITS) by oral route every week 02/13 completed Prescrib ed Elsewher e: No Locat ion: [facility] odify By: claudette Chanel r DateTime : 08/11/19 12 03:02:50 PM Not Available Not Available Not Available metoclopr amide 10 mg tablet 10/20 completed Not Available Not Available Not Available azithromy francia 500 mg tablet take 2 tablet by oral route once 10/20 completed Not Available Not Available Not Available nitrofura ntoin monohydra te/macroc rystals 100 mg capsule 10/20 completed Not Available Not Available Not Available Compazine 10/06 completed Not Available Not Available Not Available 12/04 completed Not Available Not Available Not Available Triveen-D uo DHA 29 mg-1 mg-400 mg oral pack TAKE ONE TABLET BY MOUTH ONCE DAILY 11/11 completed Not Available Not Available Not Available 19 29 mg iron-1 mg chewable tablet chew 1 tablet by oral route every day 02/13 completed Prescrib ed Elsewher e: No Locat ion: [facility] odify By: claudette Chanel r DateTime : 06/24/19 12 08:43:51 AM Not Available Not Available Not Available CitraNata l 90 DHA (algal oil) 90 mg iron-1 mg-50 mg-300 mg oral pack TAKE 1 PACK BY MOUTH EVERY DAY 11/11 completed Not Available Not Available Not Available 28 mg-800 mcg tablet . 2018 active Prescrib ed Elsewher e: No Locat ion: [facility] odify By: Encount er DateTime : 05/30/20 19 11:15:00 AM Not Available Not Available Not Available Se-Chava 19 29 mg iron-1 mg tablet take 1 tablet by oral route every day 02/13 completed Prescrib ed Elsewher e: No Locat ion: [facility] odify By: claudette Chanel r DateTime : 06/23/19 12 01:27:56 PM Not Available Not Available Not Available Vitals Date Recorded Body height Body mass index (BMI) Body weight Systolic blood pressure Diastolic blood pressure Provider Name and Address Organization Details Last Updated DateTime 11/12/2019 162.56 cm 30.6 kg/m2 91935.44 186 g 112 mm[Hg] 75 mm[Hg] Julieth Gumber [facility] 0 14:45:39 Date Recorded Body height Body mass index (BMI) Body weight Systolic blood pressure Diastolic blood pressure Provider Name and Address Organization Details Last Updated DateTime 11/19/2019 162.56 cm 30.9 kg/m2 41048.62 66 g 118 mm[Hg] 76 mm[Hg] Julieth Pratt [facility] 0 15:03:07 Date Recorded Body height Body mass index (BMI) Body weight Systolic blood pressure Diastolic blood pressure Provider Name and Address Organization Details Last Updated DateTime 11/27/2019 162.56 cm 30.9 kg/m2 43707.62 66 g 110 mm[Hg] 74 mm[Hg] Julieth Pratt [facility] 0 09:35:11 Date Recorded Body height Body mass index (BMI) Systolic blood pressure Diastolic blood pressure Provider Name and Address Organization Details Last Updated DateTime 12/05/2019 162.56 cm 27.8 kg/m2 103 mm[Hg] 70 mm[Hg] Helene Lee [facility] 12/05/2019 14:12:09 Date Recorded Body weight Provider Name an d Address Organization Details Last Updated DateTime 12/05/2019 [id number] lorelei Jones [facility] 07/06/2020 13:06:00 Social History Question Answer Notes LastModified by [employer] Details LastModified Time Tobacco Smoking Status Never Smoker Julieth Pratt [facility] 10/07/2019 14:06:46 What Is Your Level Of Alcohol Consumption? None Information not available 10/07/2019 Sex: Unknown Functional Status Question Answer Note LastModified by [employer] Details LastModified Time What is your exercise level? Occasional walking Information not available 10/07/2019 Mental Status None recorded. Family History Relationship Description Onset Age of this Age Resolved Age Notes LastModified by Organization Details LastModified Time Mother Family history of breast cancer [email or web address] Not available 09/30 09:16:51 Mother Hypertensive disorder [email or web address] Not available 09/30 09:17:07 Notes:Mother: Hypertension, Cancer, breast Medical History No medical history recorded. Gynecological HistoryNo gynecological history recorded. Obstetrics History GPAL:G 3 P 2 0 0 2 Type Value Full Term 2 Living 2 Total 3 Past Encounters Encounter ID Performer Location Encounter Start Date Encounter Closed Date Diagnosis/Indication Diagnosis SNOMED-CT Code Diagnosis ICD10 Code Diagnosis Note [id number] [facility] [address],[place] [address] 10/07/2019 13:50:26 10/07/2019 14:25:54 Routine care 828651429 Z34.93 [id number] [facility] [address],[place] [address] 10/21/2019 14:38:01 10/21/2019 15:20:25 Routine care 255415199 Z34.93 Normal 3974464 2 Z34.90 [id number] [facility] [address],[place] [address] 11/04/2019 14:29:58 11/04/2019 15:29:10 Routine care 873140821 Z34.93 [id number] [facility] [address],[place] [address] 11/12/2019 14:40:16 11/12/2019 16:18:20 Routine care 045461459 Z34.93 [id number] [facility] [address],[place] [address] 11/19/2019 14:45:14 11/19/2019 16:25:30 Routine care 771280644 Z34.93 [id number] [facility] [address],[place] [address] 11/27/2019 09:30:37 11/27/2019 10:07:52 Routine care 275594784 Z34.93 [id number] Mariusz Can MD [facility] [address] [address] 11/29/2019 00:01:51 11/29/2019 00:03:01 [id number] [address] 12/05/2019 14:07:56 12/05/2019 14:30:56 Female sterilization 73749922 Z30.2 Doing well one week s/p BTL. Return in 3 weeks for visit Health Concerns Section Related Observation LastModified by Organization Detai ls LastModified Time None Recorded Concern Status LastModified by Organization Details LastModified Time None Recorded Advance Directives Directive None Recorded Payers Encounter Date Sequence Insurance Name Policy Number Policy Fox Covered Member ID Fox Member ID Guarantor Name 11/12/2019 1 [facility] PRIOR TO 12/17/2020 (MEDICAID REPLACEMENT - HMO) [facility] [id number] 11/19/2019 1 [facility] PRIOR TO 12/17/2020 (MEDICAID REPLACEMENT - HMO) [facility] [id number] 11/27/2019 1 [facility] PRIOR TO 12/17/2020 (MEDICAID REPLACEMENT - HMO) [facility] [id number] 11/28/2019 1 [facility] PRIOR TO 12/17/2020 (MEDICAID REPLACEMENT - HMO) [facility] [id number] 12/05/2019 1 [facility] PRIOR TO 12/17/2020 (MEDICAID REPLACEMENT - HMO) [facility] [id number] Notes Date Note Type Note Provider Name and Address Organization Details Recorded Time 12/05/2019 text/html Post-OpReported bypatient.Associ ated Symptoms:incisio n healing well; no fatigue; normal appetite; normal bowel function; no constipation; no nausea; no emesis; pain improving; no pain; no fever; no bleeding; no lower extremity edema/pain; no dysuria/urinary symptoms Juliann tadeo [facility] 12/05/2019 14:27:31 OBGyn Episode Ob Episode Information Episode Created Date Number of Fetuses Patient Bloodtype Patient rh Status Prepregnancy Weight lbs Domestic Partner Domestic Partner Phone Father Name Oracle Security Consultant Status 10/07/19 20 1 O Positive 148 CLOSED Fetus Data First Name Last Name Admitted to NICU Weight (g) Sex Living Outcome Pediatric Complications Fetus ID Race Codes Race Delivery Type 641 Problems Problem Notes pt desires BTL -pt signed ID PA consent on 09-23-19 Problem Name Start Date End Date Resolution Snomed Code Not e Choroid plexus cyst [id number] Blair Calculation Initial Blair Date Initial Exam Date Initial Exam Provider Initial Ultrasound Date Last Menstrual Period Date Ultra Sound Weeks Gestation 12/08/2019 10/07/2019 05/01/2019 03/03/2019 8 Eighteen To Twenty Week Blair Update Ultra Sound Date Fundal Height At Umbil Quickening Date Ultra Sound Latest Weeks Gestation Final Blair Confirmed By Final Blair Confirmed Date Final Blair Date Ultra Sound Latest Days Gestation 0 [email or web address] 11/04/2019 12/08/19 20 0 Pre-chava Flowsheet Flowsheet Date 10/07/2019 Kahn Score Blood Edema Fundus Height Fundus Units Glucose Ketones Leukocytes Nitrite Labor Signs Protein Cervic Dilation Cervic Effacement Cervic Station 32 trace Type Weight in lbs Pre/Post Dialysis Refused Weight 169.774080298285 BP Diastolic BP Location Tested BP Systolic BP Type 69 102 sitting Fetus Heart Rate Present A 142 Fetus Movement A Yes Comments Pt doing well. Informed of 3 hour gtt. Flowsheet Date 10/21/2019 Kahn Score Blood Edema Fundus Height Fundus Units Glucose Ketones Leukocytes Nitrite Labor Signs Protein Cervic Dilation Cervic Effacement Cervic Station 34 trace Type Weight in lbs Pre/Post Dialysis Refused Weight 172.190872081099 BP Diastolic BP Location Tested BP Systolic BP Type 76 117 sitting Fetus Heart Rate Present A 135 Fetus Movement A Yes Comments Pt c/o white discharge with odor. No itching or irritation. Affirm collected. Flowsheet Date 11/04/2019 Kahn Score Blood Edema Fundus Height Fundus Units Glucose Ketones Leukocytes Nitrite Labor Signs Protein Cervic Dilation Cervic Effacement Cervic Station 35 trace Type Weight in lbs Pre/Post Dialysis Refused Weight 177.322760918745 BP Diastolic BP Location Tested BP Systolic BP Type 74 112 sitting Fetus Heart Rate Present A 144 Fetus Movement A Yes Comments Pt doing well. Thinks she ma y have lost her mucous plug. Only rare contractions. Labor precautions discussed. CALL SANTOSH FOR DELIVERY. Flowsheet Date 11/12/2019 Kahn Score Blood Edema Fundus Height Fundus Units Glucose Ketones Leukocytes Nitrite Labor Signs Protein Cervic Dilation Cervic Effacement Cervic Station 36 trace 3cm 40% -3 Type Weight in lbs Pre/Post Dialysis Refused Weight 178.016304655867 BP Diastolic BP Location Tested BP Systolic BP Type 75 112 sitting Fetus Heart Rate Present A 138 Fetus Movement A Yes Comments Pt completed pre admit. Labo r precautions discussed. Flowsheet Date 11/19/2019 Kahn Score Blood Edema Fundus Height Fundus Units Glucose Ketones Leukocytes Nitrite Labor Signs Protein Cervic Dilation Cervic Effacement Cervic Station 37 trace 4cm 40% -3 Type Weight in lbs Pre/Post Dialysis Refused Weight 180.410342176451 BP Diastolic BP Location Tested BP Systolic BP Type 76 118 sitting Fetus Heart Rate Present A 144 Fetus Movement A Yes Comments Labor precautions discussed. Flowsheet Date 05/30/2019 Kahn Score Blood Edema Fundus Height Fundus Units Glucose Ketones Leukocytes Nitrite Labor Signs Protein Cervic Dilation Cervic Effacement Cervic Station none 12 trace Type Weight in lbs Pre/Post Dialysis Refused BP Diastolic BP Location Tested BP Systolic BP Type 72 106 sitting Fetus Heart Rate Present A 158 Fetus Movement A No Comments at 12+4 by sure LMP= 8 week u/S. No complaints. She was treated for chlamydia since last visit but unsure if partner was treated or not. Repeat testing today. She had chlamydia one other time in high school as well. Wants BTL Flowsheet Date 07/19/2019 Kahn Score Blood Edema Fundus Height Fundus Units Glucose Ketones Leukocytes Nitrite Labor Signs Protein Cervic Dilation Cervic Effacement Cervic Station trace 19 trace Type Weight in lbs Pre/Post Dialysis Refused Weight 113.316624207519 BP Diastolic BP Location Tested BP Systolic BP Type 73 112 sitting Fetus Heart Rate Present A 145 Fetus Movement A Yes Comments Flowsheet Date 08/26/2019 Kahn Score Blood Edema Fundus Height Fundus Units Glucose Ketones Leukocytes Nitrite Labor Signs Protein Cervic Dilation Cervic Effacement Cervic Station trace 24 trace Type Weight in lbs Pre/Post Dialysis Refused Weight 163.555436145987 BP Diastolic BP Location Tested BP Systolic BP Type Fetus Heart Rate Present A 155 Fetus Movement A Yes Comments Flowsheet Date 09/23/2019 Kahn Score Blood Edema Fundus Height Fundus Units Glucose Ketones Leukocytes Nitrite Labor Signs Protein Cervic Dilation Cervic Effacement Cervic Station none 30 trace Type Weight in lbs Pre/Post Dialysis Refused Weight 166.440662666751 BP Diastolic BP Location Tested BP Systolic BP Type Fetus Heart Rate Present A 142 Fetus Movement A Yes Comments Pt desires tubal ligation. D iscussed risk vs benefit and consent signed today. Flowsheet Date 11/27/2019 Kahn Score Blood Edema Fundus Height Fundus Units Glucose Ketones Leukocytes Nitrite Labor Signs Protein Cervic Dilation Cervic Effacement Cervic Station 38 trace 4cm 50% -2 Type Weight in lbs Pre/Post Dialysis Refused Weight 180.536467272190 BP Diastolic BP Location Tested BP Systolic BP Type 74 110 Fetus Heart Rate Present A 132 Fetus Movement A Yes Comments Pt doing well. Occasional co ntractions. Labor precautions. Flowsheet Date 11/28/2019 Kahn Score Blood Edema Fundus Height Fundus Units Glucose Ketones Leukocytes Nitrite Labor Signs Protein Cervic Dilation Cervic Effacement Cervic Station Type Weight in lbs Pre/Post Dialysis Refused BP Diastolic BP Location Tested BP Systolic BP Type Fetus Heart Rate Present Fetus Movement Comments Flowsheet Date 12/05/2019 Kahn Score Blood Edema Fundus Height Fundus Units Glucose Ketones Leukocytes Nitrite Labor Signs Protein Cervic Dilation Cervic Effacement Cervic Station Type Weight in lbs Pre/Post Dialysis Refused Weight 162.200195860560 BP Diastolic BP Location Tested BP Systolic BP Type 70 L arm 103 sitting Fetus Heart Rate Present Fetus Movement Comments Menstrual History Last Menstrual Date Menses Monthly On Bcp Conception Prior Menses Frequency Hcg Plus Date Menarche Onset Age 0903/03/2019 Genetic Screening And Infection History Question Response Note Mental Retardation/Autism false Patient's Age Will Be 35 Years Or Older At Estim ated Date of Delivery false Thalassemia (Tur[place] Islander, Lithuanian, Mediterranean, Or Background): MCV < 80 false Neural Tube Defect (Meningomyelocele, Spina Bifi da, Or Anencephaly) false Congenital Heart Defect false Down Syndrome false Marquez-Sachs (eg, Advent, Cajun, Bolivian-Mcdonough) f alse Ruben Disease false Sickle Cell Disease Or Trait () false Hemophilia Or Other Blood Disorders false Muscular Dystrophy false Cystic Fibrosis false Chesapeake's Chorea false Intellectual Disability/Autism false If Yes, Was Person Tested For Fragile X? false Other Inherited Genetic Or Chromosomal Disorder false Maternal Metabolic Disorder (eg, Type 1 Diabetes , PKU) false Patient Or Baby's Father Had A Child With Defects Not Listed Above false Recurrent Loss, Or A Stillbirth false Medications (including Suppl ements, Vitamins, Herbs, OTC Drugs), Illicit/Recreational Drugs, Alcohol false If Yes, Agent(s) And Strength/Dosage false Any Other Genetic History false Live With Someone With TB Or Exposed To TB false Patient Or Partner Has History Of Genital Herpes false Rash Or Viral Illness Since Last Menstrual Perio d false History Of STD, Gonorrhea, Chlamydia, HPV, Syphi lis false Other Infection History false History of HIV false History of Hepatitis false Prior GBS-infected child false Hemoglobinopathy Or Carrier false Other Structural Defect false Recent Travel History Outside of Country false Delivery Information Delivery Date Delivery Type Labor Anesthesia Weeks Gestation Incision Type Labor Labor Length Hrs Delivered By Post Complications Tubal Sterilization Discharge Date Comments Discharge Information Feeding Method Contraceptive Method Maternal HG B and HCT Levels Ob Episode Information Episode Created Date Number of Fetuses Patient Bloodtype Patient rh Status Prepregnancy Weight lbs Domestic Partner Domestic Partner Phone Father Name Oracle Security Consultant Status 10/07/19 1 CLOSED Fetus Data First Name Last Name Admitted to NICU Weight (g) Sex Living Outcome Pediatric Complications Fetus ID Race Codes Race Delivery Type Full Term 642 Vaginal Delivery Blair Calculation Initial Blair Date Initial Exam [...] Complications Tubal Sterilization Discharge Date Comments 7 Discharge Information Feeding Method Contraceptive Method Maternal HG B and HCT Levels Ob Episode Information Episode Created Date Number of Fetuses Patient Bloodtype Patient rh Status Prepregnancy Weight lbs Domestic Partner Domestic Partner Phone Father Name Oracle Security Consultant Status 10/07/19 20 1 CLOSED Fetus Data First Name Last Name Admitted to NICU Weight (g) Sex Living Outcome Pediatric Complications Fetus ID Race Codes Race Delivery Type Full Term 643 Vaginal Delivery Blair Calculation Initial Blair Date Initial Exam [...] Complications Tubal Sterilization Discharge Date Comments 2 Discharge Information Feeding Method Contraceptive Method Maternal HG B and HCT Levels Ob Episode Information Episode Created Date Number of Fetuses Patient Bloodtype Patient rh Status Prepregnancy Weight lbs Domestic Partner Domestic Partner Phone Father Name Oracle Security Consultant Status 12/16/19 20 1 CLOSED Fetus Data First Name Last Name Admitted to NICU Weight (g) Sex Living Outcome Pediatric Complications Fetus ID Race Codes Race Delivery Type 3628.73 6 Full Term 2614 Vaginal Delivery Blair Calculation Initial Blair Date Initial Exam [...] Post Complications Tubal Sterilization Discharge Date Comments 0 38 Discharge Information Feeding Method Contraceptive Method Maternal HG B and HCT Levels
--- OUTSIDE RECORDS SUMMARY | 2024-09-05 07:42 | XMS_ITS | Continuity of Care Document ---
Author Name [facility] Address [address] [place] [address] Organization [facility] Care Team Providers Care Mechanical Reliability Engineer Name Role Phone [facility] Unavailable Unavailable Problems Problem Status Onset Date Problem Type Date of Resolution Comments Source Pelvic and perineal pain (finding) Diagnosis Screening status (finding) Diagnosis Acute vaginitis (disorder) Diagnosis Bacterial infectious disease (disorder) Diagnosis Other specified noninflammatory disorders of vagina Active Diagnosis Lower abdominal pain, unspecified Active Diagnosis Allergies, Adverse Reactions, Alerts Substance Category Reaction Severity Reaction type Status Date Reported Comments Source clindamycin Assertion Drug allergy Active [facility] Bactrim Assertion Drug allergy Active [facility] sulfa drugs Assertion Drug allergy Active [facility]
--- OUTSIDE RECORDS SUMMARY | 2024-09-05 07:42 | XMS_ITS | Clinical Summary ---
Author Organization [email or web address] Address [address] [place] [address] Care Team Providers Care Tester [employer] Packages Name Role Phone Unknown, Provider Primary Care Provider Unavaila ble Source Comments [email or web address],non-owned Affiliates and Associated Physician Practices is amultiple site organization consisting of ambulatory clinics and hospital sitesin [place], [place], [place] and [place]. This disclosure is being madepursuant to the Care Everywhere program and may not contain all information available regarding this patient. Last updated 18.[email or web address] Allergies Active Allergy Reactions Criticality Noted Date [...] echogenic focus 03/03/2017 Supervision of normal in [facility] 03/03/2017 Social History Tobacco Use Types Packs/Day Years Used Date Smoking Tobacco: Never Sex and Gender Information Value Date Recorded Sex Assigned at Not on file Gender Identity Not on file Sexual Orientation Not on file Last Filed Vital Signs Vital Sign Reading Time Taken Comments Blood Pressure 106/68 07/07/2016 12:06 PM [facility] Pulse 78 07/07/2016 12:06 PM [facility] Temperature 36.8 C (98.2 F) 07/07/2016 12:06 PM [facility] Respiratory Rate 18 07/07/2016 12:06 PM [facility] Oxygen Saturation - - Inhaled Oxygen Concentration - - Weight 63.5 kg (140 lb) 07/07/2016 12:06 PM [facility] Height 162.6 cm (5' 4 ) 07/07/2016 12:06 PM [facility] Body Mass Index 24.03 07/07/2016 12:06 PM [facility] Plan of Treatment Health Maintenance Due Date [...] age to complete this topic Care Teams Tester [employer]icon[employer] Packages Relationship Specialty Start Date End Date Unknown, Provider PCP - General 07/07/16
--- OUTSIDE RECORDS SUMMARY | 2024-09-05 07:43 | XMS_ITS | CONTINUITY OF CARE DOCUMENT ---
Author Name chad bonilla Address Unknown Organization [facility] Address [address] [address] [place] [address] Phone [phone] Care Team Providers Care Elevator Repairer Apprentice Name Role Phone Eduardo Villarreal MD Unavailable GALILEA ZUÑIGA, NANCY Unavailable [phone] INSURANCE PROVIDERS Payer name Policy type / Coverage type Chrissy red libertarian [place] MED[place] (2) Medicaid [id number]
== END 2024-09-05 08:27 | disposition home or self-care (01) ==
PROVIDERS: Emergency Provider Emergency Medicine; PCP Nurse Practitioner Obstetrics & Gynecology
DX: S09.90XA Unspecified injury of head, initial encounter (principal); W10.9XXA Fall (on) (from) unspecified stairs and steps, initial encounter
CPT/HCPCS: 70450; 70486; 99284

== ENCOUNTER 2024-11-08 09:52 | Outpatient (CLI) | payer OTHER, SELFPAY ==
--- NOTE | ~2024-11-08 | US_ITS ---
EXAM: ABDOMEN ULTRASOUND HISTORY: R74.8 - Abnormal levels of other serum enzymes COMPARISON: None FINDINGS: LIVER: The liver is unremarkable in echogenicity and size. The portal vein is patent, demonstrating phasic hepatopedal flow. GALLBLADDER: Multiple stones are identified within the gallbladder, which is otherwise unremarkable. No gallbladder wall thickening or pericholecystic fluid. BILE DUCTS: Common bile duct measures 3.5mm. PANCREAS: Limited evaluation of the pancreas secondary to overlying bowel gas SPLEEN: The spleen is unremarkable in echogenicity and size measuring 9.5cm in longitudinal dimension . RIGHT KIDNEY: 10.5 cm. In length. No hydronephrosis or bulky renal calculi. LEFT KIDNEY: 10.3cm in length. No hydronephrosis or renal calculi. VASCULATURE : The abdominal aorta is nonaneurysmal. The IVC is patent. IMPRESSION: Evaluation of the pancreas is limited by overlying bowel gas. Cholelithiasis without sonographic evidence of cholecystitis. Phasic flow within the portal vein. Examination is otherwise unremarkable, as detailed above. Reviewed, dictated and finalized at location A.
--- OUTSIDE RECORDS SUMMARY | 2024-11-08 09:56 | XMS_ITS | Clinical Summary ---
Author Organization [facility] [employer] Address [address] [place] [place] [address] Care Team Providers Care Nurse Educator Name Role Phone Unknown, Provider Primary Care Provider Unavaila ble Source Comments [facility],non-owned Affiliates and Associated Physician Practices is amultiple site organization consisting of ambulatory clinics and hospital sitesin [place], [place], [place] and [place]. This disclosure is being madepursuant to the Care Everywhere program and may not contain all information available regarding this patient. Last updated 18.[facility] [employer] Allergies Active Allergy Reactions Criticality Noted Date Comments Sulfamethoxazole W-Trimethoprim 06/19 Clindamycin 07/07/2016 Medications * Be aware that medications may not be up to date on this document. Alwaysverify current medications with the patient. Calcium-Vitamin D-Vitamin K (CALCIUM + D + K PO) Active Vit-Fe Fumarate-FA ( VITAMIN) 27-0.8 MG tablet Take 1 Tab by mouth once daily Active methylPREDNISolone (MEDROL DOSEPAK) 4 MG tablet 1 dose pack PO as directed on package 1 Each 7 Active ciprofloxacin 0.3% (CILOXAN) 0.3 % ophthalmic solutionIndications :Other mucopurulent conjunctivitis of right eye 2 gtt to R eye q2h while awake x2 days, then q4h x5 days 10 mL 7 Active Active Problems Patient Care Coordination No te Formatting of this note migh t be different from the original. [id number] 12/2016 Problem Noted Date Diagnosed Date cardiac echogenic focus 03/03/2017 Supervision of normal in [facility] 03/03/2017 Social History Tobacco Use Types Packs/Day Years Used Date Smoking Tobacco: Never Comments No Sex and Gender Information Value Date Recorded Sex Assigned at Not on file Legal Sex Female 9:35 AM PRINTING SERVICES COORDINATOR Gender Identity Not on file Sexual Orientation Not on file Last Filed Vital Signs Vital Sign Reading Time Taken Comments Blood Pressure 106/68 07/07/2016 12:06 PM PRINTING SERVICES COORDINATOR Pulse 78 07/07/2016 12:06 PM PRINTING SERVICES COORDINATOR Temperature 36.8 C (98.2 F) 07/07/2016 12:06 PM PRINTING SERVICES COORDINATOR Respiratory Rate 18 07/07/2016 12:06 PM PRINTING SERVICES COORDINATOR Oxygen Saturation - - Inhaled Oxygen Concentration - - Weight 63.5 kg (140 lb) 07/07/2016 12:06 PM PRINTING SERVICES COORDINATOR Height 162.6 cm (5' 4 ) 07/07/2016 12:06 PM PRINTING SERVICES COORDINATOR Body Mass Index 24.03 07/07/2016 12:06 PM PRINTING SERVICES COORDINATOR Plan of Treatment Health Maintenance Due Date Last Done Comments HIV SCREENING 2007 HEPATITIS C SCREENING 07/01/2010 DTAP/TDAP/TD VACCINES (1 - Tdap) 2011 HEPATITIS B VACCINE (1 of 3 - 19+ 3-dose series) 2011 COVID-19 VACCINE ( - 2023-2 5 season) 2024 DEPRESSION SCREENING 06/19/2024 INFLUENZA VACCINE (Season Ended) 2025 ZOSTER VACCINE (1 of 2) 2042 HIB [...] on patient's age to complete this topic Insurance Care Teams Nurse Educator Relationship Specialty Start Date End Date Unknown, Provider PCP - General 07/07/16
--- OUTSIDE RECORDS SUMMARY | 2024-11-08 09:56 | XMS_ITS | Data Portability ---
[facility] Address [address] [place] [address] Assessment No assessment recorded. Plan of Treatment Reminders Order Date Submit Date Provider Last Modified By Organization Details Last Modified Time Details Appointments None recorded. Lab bacterial vaginosis + vaginitis panel, vaginal - Z11.3, Z20.0 2017 018 [facility], [address] [place] [address], [address], [place], [address], 8 16:22:55 HSV (1+2) DNA, qual, PCR, unspecifi ed specimen - Z11.3, Z20.2 2017 018 [facility], [address] [place] [address], [address], [place], [address], 8 16:22:56 culture, vaginal/r ectal, streptoco ccus group B - Z11.3, Z20.2 2017 018 [facility], [address] [place] [address], [address], [place], [address], 8 16:22:56 urinalysi s, dipstick 2017 Chante grant In-Office Order, Internal Use Only DO Not Attach Compendium DO Not Attach Compendium, Do Not Delete/merge, [id number] 8 13:29:54 test, urine 2017 018 juanita In-Office Order, Internal Use Only DO Not Attach Compendium DO Not Attach Compendium, Do Not Delete/merge, [id number] 8 13:29:54 pap, IG + HPV, cervical 2016 017 [facility], [address], [address], [address], 7 16:17:12 test, urine 2016 017 juanita In-Office Order, Internal Use Only DO Not Attach Compendium DO Not Attach Compendium, Do Not Delete/merge, [id number] 7 16:21:37 urinalysi s, dipstick 2016 017 juanita In-Office Order, Internal Use Only DO Not Attach Compendium DO Not Attach Compendium, Do Not Delete/merge, [id number] 7 16:21:37 bacterial vaginosis + vaginitis panel, vaginal - Z11.3 2016 017 [facility], [address], [address], [place], [address], 7 06:07:31 HSV (1+2) DNA, qual, PCR, unspecifi ed specimen - Z11.3 2016 017 [facility], [address], [address], [place], [address], 7 06:07:31 culture, vaginal/r ectal, streptoco ccus group B - Z11.3 2016 017 [facility], [address], [address], [place], [address], 7 06:07:32 urinalysi s, dipstick 2016 017 juanita In-Office Order, Internal Use Only DO Not Attach Compendium DO Not Attach Compendium, Do Not Delete/merge, [id number] 7 21:20:06 urinalysi s, dipstick 2016 017 brannonchristopher In-Office Order, Internal Use Only DO Not Attach Compendium DO Not Attach Compendium, Do Not Delete/merge, [id number] 7 21:18:32 urinalysi s, dipstick 2016 017 jaylen In-Office Order, Internal Use Only DO Not Attach Compendium DO Not Attach Compendium, Do Not Delete/merge, [id number] 7 16:21:46 Referral None recorded. Procedures None recorded. Surgeries None recorded. Imaging None recorded. Medication Orders calcium 600 mg (as carbonate )-vitamin D3 20 mcg (800 unit) tablet 2017 018 [id number], [address] [place] [address], [id number], 8 13:11:16 multivita min tablet 2017 018 [facility][id number], [address] [place] [address], [id number], 8 13:11:16 Xulane 150 mcg-35 mcg/24 hr transderm al patch 2017 018 [facility][id number], [address] [place] [address], [id number], 8 13:22:05 Depo-Prov era 150 mg/mL intramusc [...] 11/30/2017 urina lysis , dipst ick Specific [place] 1.030 Not Available In-Off ice Order Internal Use Only DO Not Attach Compendium DO Not Attach Compendium, Do Not Delete/merge, 11/30/2017 12:15:30 06/14/20 18 11/30/2017 urina lysis , dipst ick Ketone Negati ve Not Available In-Office Order Internal Use Only DO Not Attach Compendium DO Not Attach Compendium, Do Not Delete/merge, [id number] 11/30/2017 12:15:30 12/01/19 18 11/30/2017 urina lysis , dipst ick Bilirubin Negati ve Not Available In-Office Order Internal Use Only DO Not Attach Compendium DO Not Attach Compendium, Do Not Delete/merge, [id number] 11/30/2017 12:15:30 12/01/19 18 11/30/2017 urina lysis , dipst ick Glucose Negati ve Not Available In-Office Order Internal Use Only DO Not Attach Compendium DO Not Attach Compendium, Do Not Delete/merge, [id number] 11/30/2017 12:15:30 05/22/20 17 05/22/2017 urina lysis , dipst ick Leukocytes Trace Not Available In-Offi ce Order Internal Use Only DO Not Attach Compendium DO Not Attach Compendium, Do Not Delete/merge, [id number] 05/22/2017 16:09:12 05/22/20 17 05/22/2017 urina lysis , dipst ick Nitrite negati ve Not Available In-Office Order Internal Use Only DO Not Attach Compendium DO Not Attach Compendium, Do Not Delete/merge, [id number] 05/22/2017 16:09:12 05/22/20 17 05/22/2017 urina lysis , dipst ick Urobilinogen .2 Not Available In-Of fice Order Internal Use Only DO Not Attach Compendium DO Not Attach Compendium, Do Not Delete/merge, [id number] 05/22/2017 16:09:12 05/22/20 17 05/22/2017 urina lysis , dipst ick Protein Negati ve Not Available In-Office Order Internal Use Only DO Not Attach Compendium DO Not Attach Compendium, Do Not Delete/merge, [id number] 05/22/2017 16:09:12 05/22/20 17 05/22/2017 urina lysis , dipst ick pH 7.5 Not Available In-Office Order Internal Use Only DO Not Attach Compendium DO Not Attach Compendium, Do Not Delete/merge, [id number] 05/22/2017 16:09:12 05/22/20 17 05/22/2017 urina lysis , dipst ick Blood Negati ve Not Available In-Office Order Internal Use Only DO Not Attach Compendium DO Not Attach Compendium, Do Not Delete/merge, [id number] 05/22/2017 16:09:12 05/22/20 17 05/22/2017 urina lysis , dipst ick Specific [place] 1.020 Not Available In-Off ice Order Internal Use Only DO Not Attach Compendium DO Not Attach Compendium, Do Not Delete/merge, [id number] 05/22/2017 16:09:12 05/22/20 17 05/22/2017 urina lysis , dipst ick Ketone Negati ve Not Available In-Office Order Internal Use Only DO Not Attach Compendium DO Not Attach Compendium, Do Not Delete/merge, [id number] 05/22/2017 16:09:12 05/22/20 17 05/22/2017 urina lysis , dipst ick Bilirubin Negati ve Not Available In-Office Order Internal Use Only DO Not Attach Compendium DO Not Attach Compendium, Do Not Delete/merge, [id number] 05/22/2017 16:09:12 05/22/20 17 05/22/2017 urina lysis , dipst ick Glucose Negati ve Not Available In-Office Order Internal Use Only DO Not Attach Compendium DO Not Attach Compendium, Do Not Delete/merge, [id number] 05/22/2017 16:09:12 05/22/20 17 05/22/2017 pregn sherri test, urine HCG negati ve Not Available In-Office Order Internal Use Only DO Not Attach Compendium DO Not Attach Compendium, Do Not Delete/merge, [id number] 05/22/2017 16:08:54 04/13/20 17 04/13/2017 urina lysis , dipst ick Leukocytes Negati ve Not Available In-Office Order Internal Use Only DO Not Attach Compendium DO Not Attach Compendium, Do Not Delete/merge, [id number] 04/13/2017 16:55:32 04/13/20 17 04/13/2017 urina lysis , dipst ick Nitrite negati ve Not Available In-Office Order Internal Use Only DO Not Attach Compendium DO Not Attach Compendium, Do Not Delete/merge, [id number] 04/13/2017 16:55:32 04/13/20 17 04/13/2017 urina lysis , dipst ick Urobilinogen .2 Not Available In-Of fice Order Internal Use Only DO Not Attach Compendium DO Not Attach Compendium, Do Not Delete/merge, [id number] 04/13/2017 16:55:32 04/13/20 17 04/13/2017 urina lysis , dipst ick Protein Negati ve Not Available In-Office Order Internal Use Only DO Not Attach Compendium DO Not Attach Compendium, Do Not Delete/merge, [id number] 04/13/2017 16:55:32 04/13/20 17 04/13/2017 urina lysis , dipst ick pH 7.0 Not Available In-Office Order Internal Use Only DO Not Attach Compendium DO Not Attach Compendium, Do Not Delete/merge, [id number] 04/13/2017 16:55:32 04/13/20 17 04/13/2017 urina lysis , dipst ick Blood Negati ve Not Available In-Office Order Internal Use Only DO Not Attach Compendium DO Not Attach Compendium, Do Not Delete/merge, [id number] 04/13/2017 16:55:32 04/13/20 17 04/13/2017 urina lysis , dipst ick Specific [place] 1.015 Not Available In-Off ice Order Internal Use Only DO Not Attach Compendium DO Not Attach Compendium, Do Not Delete/merge, [id number] 04/13/2017 16:55:32 04/13/20 17 04/13/2017 urina lysis , dipst ick Ketone Negati ve Not Available In-Office Order Internal Use Only DO Not Attach Compendium DO Not Attach Compendium, Do Not Delete/merge, [id number] 04/13/2017 16:55:32 04/13/20 17 04/13/2017 urina lysis , dipst ick Bilirubin Negati ve Not Available In-Office Order Internal Use Only DO Not Attach Compendium DO Not Attach Compendium, Do Not Delete/merge, [id number] 04/13/2017 16:55:32 04/13/20 17 04/13/2017 urina lysis , dipst ick Glucose Negati ve Not Available In-Office Order Internal Use Only DO Not Attach Compendium DO Not Attach Compendium, Do Not Delete/merge, [id number] 04/13/2017 16:55:32 04/06/20 17 04/06/2017 urina lysis [...] DO Not Attach Compendium, Do Not Delete/merge, [id number] 04/06/2017 16:58:16 04/06/20 17 04/06/2017 urina lysis , dipst ick Protein Negati ve Not Available In-Office Order Internal Use Only DO Not Attach Compendium DO Not Attach Compendium, Do Not Delete/merge, 04/06/2017 16:58:16 04/06/20 17 04/06/2017 urina lysis , dipst ick pH 6.5 Not Available In-Office Order Internal Use Only DO Not Attach Compendium DO Not Attach Compendium, Do Not Delete/merge, [id number] 04/06/2017 16:58:16 04/06/20 17 04/06/2017 urina lysis , dipst ick Blood Negati ve Not Available In-Office Order Internal Use Only DO Not Attach Compendium DO Not Attach Compendium, Do Not Delete/merge, 04/06/2017 16:58:16 04/06/20 17 04/06/2017 urina lysis , dipst ick Specific [place] 1.020 Not Available In-Off ice Order Internal Use Only DO Not Attach Compendium DO Not Attach Compendium, Do Not Delete/merge, 04/06/2017 16:58:16 04/06/20 17 04/06/2017 urina lysis , dipst ick Ketone Negati ve Not Available In-Office Order Internal Use Only DO Not Attach Compendium DO Not Attach Compendium, Do Not Delete/merge, [id number] 04/06/2017 16:58:16 04/06/20 17 04/06/2017 urina lysis , dipst ick Bilirubin Negati ve Not Available In-Office Order Internal Use Only DO Not Attach Compendium DO Not Attach Compendium, Do Not Delete/merge, [id number] 04/06/2017 16:58:16 04/06/20 17 04/06/2017 urina lysis , dipst ick Glucose Negati ve Not Available In-Office Order Internal Use Only DO Not Attach Compendium DO Not Attach Compendium, Do Not Delete/merge, [id number] 04/06/2017 16:58:16 03/31/20 17 03/31/2017 urina lysis , dipst ick Leukocytes Trace Not Available In-Offi ce Order Internal Use Only DO Not Attach Compendium DO Not Attach Compendium, Do Not Delete/merge, [id number] 03/31/2017 16:06:11 03/31/20 17 03/31/2017 urina lysis , dipst ick Nitrite negati ve Not Available In-Office Order Internal Use Only DO Not Attach Compendium DO Not Attach Compendium, Do Not Delete/merge, [id number] 03/31/2017 16:06:11 03/31/20 17 03/31/2017 urina lysis , dipst ick Urobilinogen .2 Not Available In-Of fice Order Internal Use Only DO Not Attach Compendium DO Not Attach Compendium, Do Not Delete/merge, [id number] 03/31/2017 16:06:11 03/31/20 17 03/31/2017 urina lysis , dipst ick Protein Negati ve Not Available In-Office Order Internal Use Only DO Not Attach Compendium DO Not Attach Compendium, Do Not Delete/merge, [id number] 03/31/2017 16:06:11 03/31/20 17 03/31/2017 urina lysis , dipst ick pH 7.0 Not Available In-Office Order Internal Use Only DO Not Attach Compendium DO Not Attach Compendium, Do Not Delete/merge, [id number] 03/31/2017 16:06:11 03/31/20 17 03/31/2017 urina lysis , dipst ick Blood Negati ve Not Available In-Office Order Internal Use Only DO Not Attach Compendium DO Not Attach Compendium, Do Not Delete/merge, [id number] 03/31/2017 16:06:11 03/31/20 17 03/31/2017 urina lysis , dipst ick Specific [place] 1.025 Not Available In-Off ice Order Internal Use Only DO Not Attach Compendium DO Not Attach Compendium, Do Not Delete/merge, [id number] 03/31/2017 16:06:11 03/31/20 17 03/31/2017 urina lysis , dipst ick Ketone Negati ve Not Available In-Office Order Internal Use Only DO Not Attach Compendium DO Not Attach Compendium, Do Not Delete/merge, [id number] 03/31/2017 16:06:11 03/31/20 17 03/31/2017 urina lysis , dipst ick Bilirubin Negati ve Not Available In-Office Order Internal Use Only DO Not Attach Compendium DO Not Attach Compendium, Do Not Delete/merge, [id number] 03/31/2017 16:06:11 03/31/20 17 03/31/2017 urina lysis , dipst ick Glucose Negati ve Not Available In-Office Order Internal Use Only DO Not Attach Compendium DO Not Attach Compendium, Do Not Delete/merge, [id number] 03/31/2017 16:06:11 03/24/20 17 03/24/2017 urina lysis , dipst ick Leukocytes Negati ve Not Available In-Office Order Internal Use Only DO Not Attach Compendium DO Not Attach Compendium, Do Not Delete/merge, [id number] 03/24/2017 15:59:02 03/24/20 17 03/24/2017 urina lysis , dipst ick Nitrite negati ve Not Available In-Office Order Internal Use Only DO Not Attach Compendium DO Not Attach Compendium, Do Not Delete/merge, [id number] 03/24/2017 15:59:02 03/24/20 17 03/24/2017 urina lysis , dipst ick Urobilinogen .2 Not Available In-Of fice Order Internal Use Only DO Not Attach Compendium DO Not Attach Compendium, Do Not Delete/merge, [id number] 03/24/2017 15:59:02 03/24/20 17 03/24/2017 urina lysis , dipst ick Protein Negati ve Not Available In-Office Order Internal Use Only DO Not Attach Compendium DO Not Attach Compendium, Do Not Delete/merge, [id number] 03/24/2017 15:59:02 03/24/20 17 03/24/2017 urina lysis , dipst ick pH 7.0 Not Available In-Office Order Internal Use Only DO Not Attach Compendium DO Not Attach Compendium, Do Not Delete/merge, [id number] 03/24/2017 15:59:02 03/24/20 17 03/24/2017 urina lysis , dipst ick Blood Negati ve Not Available In-Office Order Internal Use Only DO Not Attach Compendium DO Not Attach Compendium, Do Not Delete/merge, [id number] 03/24/2017 15:59:02 03/24/20 17 03/24/2017 urina lysis , dipst ick Specific [place] 1.015 Not Available In-Off ice Order Internal Use Only DO Not Attach Compendium DO Not Attach Compendium, Do Not Delete/merge, 03/24/2017 15:59:02 03/24/20 17 03/24/2017 urina lysis , dipst ick Ketone Negati ve Not Available In-Office Order Internal Use Only DO Not Attach Compendium DO Not Attach Compendium, Do Not Delete/merge, [id number] 03/24/2017 15:59:02 03/24/20 17 03/24/2017 urina lysis , dipst ick Bilirubin Negati ve Not Available In-Office Order Internal Use Only DO Not Attach Compendium DO Not Attach Compendium, Do Not Delete/merge, [id number] 03/24/2017 15:59:02 03/24/20 17 03/24/2017 urina lysis , dipst ick Glucose Negati ve Not Available In-Office Order Internal Use Only DO Not Attach Compendium DO Not Attach Compendium, Do Not Delete/merge, [id number] 03/24/2017 15:59:02 03/24/20 17 03/24/2017 urina lysis [...] 03/10/2017 urina lysis , dipst ick Specific [place] 1.020 Not Available In-Off ice Order Internal [...] 02/23/2017 urina lysis , dipst ick Specific [place] 1.020 Not Available In-Off ice Order Internal [...] DO Not Attach Compendium, Do Not Delete/merge, [id number] 02/23/2017 16:27:50 03/24/20 17 03/25/2017 toxop lasma igg+i gm Ab, serum toxoplasma gondii Ab,IgG,qn <3.0 IU/mL 0.0-7. 1 Negat leon <7.2 Equiv ocal 7.2 - 8.7 Posit leon >8.7 Not Available [facility] ([facility]) [address] [place], [address], 03/25/2017 08:19:39 03/24/20 17 03/25/2017 toxop lasma igg+i gm Ab, serum toxoplasma gondii Ab,IgM,qn <3.0 AU/mL 0.0-7. 9 Negat leon <8.0 Equiv ocal 8.0 - 9.9 Posit leon >9.9 Not Available [facility] ([facility]) [address] [place], [address], 03/25/2017 08:19:39 03/24/20 17 03/25/2017 toxop lasma igg+i gm Ab, serum comments COMMEN T No serol ogica l evide nce of infec tion with Toxop lasma . If sympt oms persi st, submi t a new speci men after three weeks . Not Available [facility] ([facility]) [address] [place], [address], 03/25/2017 08:19:39 03/24/20 17 03/25/2017 RPR (rapi d plasm a reagi n), serum RPR NON REACTI VE non reacti ve Not Available [facility] ([facility]) [address], [place], [place], [address], 03/25/2017 08:19:40 03/24/20 17 03/25/2017 HIV 1+2 AB + HIV 1 p24 Ag, quali tativ e immun oassa y, serum HIV screen 4TH generation wrfx NON REACTI VE non reacti ve Not Available [facility] ([facility]) [address], [place], [place], [address], 03/25/2017 08:19:40 03/24/20 17 03/25/2017 HBsAg (hepa titis B surfa ce Ag), EIA, serum HBsAg screen NEGATI VE negati ve Not Available [facility] ([facility]) [address], [place], [place], [address], 03/25/2017 08:19:41 03/24/20 17 03/27/2017 bacte rial vagin osis + vagin itis panel , vagin al trich vag by LB NEGATI VE negati ve Not Available [facility] ([facility]) [address], [place], [place], [address], 03/29/2017 14:13:42 03/24/20 17 03/27/2017 bacte rial vagin osis + vagin itis panel , vagin al chlamydia trachomatis, LB NEGATI VE negati ve Not Available [facility] ([facility]) [address] [place] [address], [address], 03/29/2017 14:13:42 03/24/20 17 03/27/2017 bacte rial vagin osis + vagin itis panel , vagin al neisseria gonorrhoeae, LB NEGATI VE negati ve Not Available [facility] ([facility]) [address] [place], [address], 03/29/2017 14:13:42 03/24/20 17 03/29/2017 bacte rial vagin osis + vagin itis panel , vagin al atopobium vaginae LOW - 0 score Not Available [facility] ([facility]) [address] [place] [address], [address], 03/29/2017 14:13:42 03/24/20 17 03/29/2017 bacte rial vagin osis + vagin itis panel , vagin al bvab 2 LOW - 0 score Not Available [facility] ([facility]) [address], [place], [place], [address], 03/29/2017 14:13:42 03/24/20 17 03/29/2017 bacte rial [...] e bonifacio cteri stics deter mined by [employer]. It has not been clear ed or appro sotero by the Food and Drug Admin istra tion. The FDA has deter mined that such clear ance or appro salome is not neces margarito. Not Available [facility] ([facility]) [address], [place], [place], [address], 03/29/2017 14:13:42 03/24/20 17 03/29/2017 bacte rial vagin osis + vagin itis panel , vagin al radha albicans, LB NEGATI VE negati ve Not Available [facility] ([facility]) [address] [place], [address], 03/29/2017 14:13:42 03/24/20 17 03/29/2017 bacte rial vagin osis + vagin itis panel , vagin al radha glabrata, LB NEGATI VE negati ve This test was devel oped and its perfo rmanc e bonifacio cteri stics deter mined by [employer]. It has not been clear ed or appro sotero by the Food and Drug Admin istra tion. The FDA has deter mined that such clear ance or appro salome is not neces margarito. Not Available [facility] ([facility]) [address], [place], [place], [address], 03/29/2017 14:13:42 03/24/20 17 03/28/2017 HSV (1+2) DNA, qual, PCR, unspe cifie d speci men hsv 1 LB NEGATI VE negati ve Not Available [facility] ([facility]) [address] [place], [address], 03/29/2017 14:13:43 03/24/20 17 03/28/2017 HSV (1+2) DNA, qual, PCR, unspe cifie d speci men hsv 2 LB NEGATI VE negati ve Not Available [facility] ([facility]) [address], [place], [place], [address], 03/29/2017 14:13:43 03/24/20 17 03/26/2017 cultu re, vagin al/re ctal, strep tococ cus group B strep gp B LB NEGATI VE negati ve [facility] rs for Disea se Contr ol and Preve ntion (CDC) and [facility] can Congr ess of Obste trici ans and Gynec ologi sts (ACOG ) guide lines for preve ntion of perin atal group B strep tococ glroia (GBS) disea se speci fy co-co llect [...] n is noted . Not Available [facility] ([facility]) [address], [place], [place], [address], 03/29/2017 14:13:43 05/22/20 17 05/24/2017 bacte rial vagin osis + vagin itis panel , vagin al atopobium vaginae LOW - 0 score Not Available [facility] ([facility]) [address] [place], [address], 05/25/2017 06:07:31 05/22/20 17 05/24/2017 bacte rial vagin osis + vagin itis panel , vagin al bvab 2 LOW - 0 score Not Available [facility] ([facility]) [address], [place], [place], [address], 05/25/2017 06:07:31 05/22/20 17 05/24/2017 bacte rial [...] is not neces margarito. Not Available [facility] ([facility]) [address] [place], [address], 05/25/2017 06:07:31 05/22/20 17 05/24/2017 bacte rial vagin osis + vagin itis panel , vagin al radha albicans, LB NEGATI VE negati ve Not Available [facility] ([facility]) [address] [place], [address], 05/25/2017 06:07:31 05/22/20 17 05/24/2017 bacte rial [...] is not neces margarito. Not Available [facility] ([facility]) [address] [place], [address], 05/25/2017 06:07:31 05/22/20 17 05/24/2017 bacte rial vagin osis + vagin itis panel , vagin al trich vag by LB NEGATI VE negati ve Not Available [facility] ([facility]) [address] [place], [address], 05/25/2017 06:07:31 05/22/20 17 05/24/2017 bacte rial vagin osis + vagin itis panel , vagin al chlamydia trachomatis, LB NEGATI VE negati ve Not Available [facility] ([facility]) [address] [place], [address], 05/25/2017 06:07:31 05/22/20 17 05/24/2017 bacte rial vagin osis + vagin itis panel , vagin al neisseria gonorrhoeae, LB NEGATI VE negati ve Not Available [facility] ([facility]) [address] [place], [address], 05/25/2017 06:07:31 05/22/20 17 05/24/2017 HSV (1+2) DNA, qual, PCR, unspe cifie d speci men hsv 1 LB NEGATI VE negati ve Not Available [facility] ([facility]) [address], [place], [place], [address], 05/25/2017 06:07:31 05/22/20 17 05/24/2017 HSV (1+2) DNA, qual, PCR, unspe cifie d speci men hsv 2 LB NEGATI VE negati ve Not Available [facility] ([facility]) [address], [place], [place], [address], 05/25/2017 06:07:31 05/22/20 17 05/24/2017 cultu re, [...] hancock is noted . Not Available [facility] ([facility]) [address], [place], [place], [address], 05/25/2017 06:07:32 05/22/20 17 05/26/2017 pap, IG + HPV, cervi gloria diagnosis: ORLANDO Castañeda NEGAT LEON FOR INTRA EPITH ELIAL LESIO N AND MALJUANA SARMIENTO . THIS SPECI MEN WAS RESCR EENED PART OF OUR QUALI TY CONTR OL PROGR AM. Not Available [facility] ([facility]) [address], [place], [place], [address], 05/26/2017 16:17:12 05/22/20 17 05/26/2017 pap, IG + HPV, cervi gloria specimen adequacy: ORLANDO Castañeda Satis facto ry for evalu ation . No endoc ervic al compo nent is ident ified . Not Available [facility] ([facility]) [address], [place], [place], [address], 05/26/2017 16:17:12 05/22/20 17 05/26/2017 pap, IG + HPV, cervi gloria clinician provided ICD10: ORLANDO Castañeda Z20.2 Z39.2 Not Available [facility] ([facility]) [address] [place], [address], 05/26/2017 16:17:12 05/22/20 17 05/26/2017 pap, IG + HPV, cervi gloria performed by: ORLANDO hancock, Cytot echno logis t (ASCP ) Not Available [facility] ([facility]) [address] [place], [address], 05/26/2017 16:17:12 05/22/20 17 05/26/2017 pap, IG + HPV, cervi gloria QC reviewed by: ORLANDO Ricks r, Super visor y Cytot echno logis t (ASCP ) Not Available [facility] ([facility]) [address] [place], [address], 05/26/2017 16:17:12 05/22/20 17 05/26/2017 pap, IG + HPV, cervi gloria . . Not Available [facility] ([facility]) [address], [place], [place], [address], 05/26/2017 16:17:12 05/22/20 17 05/26/2017 pap, IG [...] ts do occur . Not Available [facility] ([facility]) [address] [place], [address], 05/26/2017 16:17:12 05/22/20 17 05/26/2017 pap, IG + HPV, cervi gloria test methodology: COMMEN T This liqui d based ThinP rep(R ) pap test was scree enrrique with the use of an image guide blossom mcduffie. Not Available [facility] ([facility]) [address] [place], [address], 05/26/2017 16:17:12 05/22/20 17 05/26/2017 pap, IG + HPV, cervi gloria HPV aptima NEGATI VE negati ve This test detec ts fourt een high- risk HPV types (16/1 8/31/ 33/35 /39/4 5/ 51/52 /56/5 8/59/ 66/68 ) witho ut diffe renti ation . Not Available [facility] ([facility]) [address], [place], [place], [address], 05/26/2017 16:17:12 12/01/19 18 12/04/2017 bacte rial vagin osis + vagin itis panel , vagin al trich vag by LB Negati ve negati ve Not Available [facility] ([facility]) [address] [place], [address], 12/06/2017 16:22:55 12/01/19 18 12/04/2017 bacte rial vagin osis + vagin itis panel , vagin al chlamydia trachomatis, LB Negati ve negati ve Not Available [facility] ([facility]) [address] [place], [address], 12/06/2017 16:22:55 12/01/19 18 12/04/2017 bacte rial vagin osis + vagin itis panel , vagin al neisseria gonorrhoeae, LB Negati ve negati ve Not Available [facility] ([facility]) [address] [place], [address], 12/06/2017 16:22:55 12/01/19 18 12/05/2017 bacte rial vagin osis + vagin itis panel , vagin al atopobium vaginae Low - 0 score Not Available [facility] ([facility]) [address] [place], [address], 12/06/2017 16:22:55 12/01/19 18 12/05/2017 bacte rial vagin osis + vagin itis panel , vagin al bvab 2 Low - 0 score Not Available [facility] ([facility]) [address] [place], [address], 12/06/2017 16:22:55 12/01/19 18 12/05/2017 bacte rial [...] e bonifacio cteri stics deter mined by [employer]. It has not been clear ed or appro sotero by the Food and Drug Admin istra tion. The FDA has deter mined that such clear ance or appro salome is not neces margarito. Not Available [facility] ([facility]) [address] [place], [address], 12/06/2017 16:22:55 12/01/19 18 12/05/2017 bacte rial vagin osis + vagin itis panel , vagin al radha albicans, LB Negati ve negati ve Not Available [facility] ([facility]) [address] [place], [address], 12/06/2017 16:22:55 12/01/19 18 12/05/2017 bacte rial vagin osis + vagin itis panel , vagin al radha glabrata, LB Negati ve negati ve This test was devel oped and its perfo rmanc e bonifacio cteri stics deter mined by [employer]. It has not been clear ed or appro sotero by the Food and Drug Admin istra tion. The FDA has deter mined that such clear ance or appro salome is not neces margarito. Not Available [facility] ([facility]) [address] [place], [address], 12/06/2017 16:22:55 12/01/19 18 12/04/2017 HSV (1+2) DNA, qual, PCR, unspe cifie d speci men hsv 1 LB Negati ve negati ve Not Available [facility] ([facility]) [address] [place], [address], 12/06/2017 16:22:56 12/01/19 18 12/04/2017 HSV (1+2) DNA, qual, PCR, unspe cifie d speci men hsv 2 LB Negati ve negati ve Not Available [facility] ([facility]) [address], [place], [place], [address], 12/06/2017 16:22:56 12/01/19 18 12/06/2017 cultu re, [...] n is noted . Not Available [facility] ([facility]) [address], [place], [place], [address], 12/06/2017 16:22:56 03/03/20 17 02/07/2017 US, obste tric, follo w-up No observ ation record ed. jaylen [facility] [address] [place], [address], 03/10/2017 16:08:23 03/03/20 17 03/03/2017 US, obste tric, follo w-up No observ ation record ed. [email or web address] [facility] ([facility] Scheduling) [address] [place], [address], 06/08/2017 16:14:10 04/24/20 17 US, obste tric, 2nd trime ster No observ ation record ed. [facility] Not Available 05/22 18:09:43 06/20/19 18 06/19/2017 XR, hand No observ ation record ed. [facility] (Imaging) [address] [place], [address], 11/30/2017 14:17:56 Result Notes None recorded. Problems Name Problem SNOMED Code Status Onset Date Resolution Date Notes Provider Name and Address Organization Details Recorded Time Amenorrhea 90856934 Active Stella Ornelas [place] null, [place] - [facility] 6 14:43:40 [place] eye disease Active Stella Ornelas [place], [place] [facility] 6 14:43:40 Lower urinary tract infectious disease 1141844 Active Stella Ornelas [place], [place] [facility] 6 14:43:40 Urogenital infection by Trichomonas vaginalis 44983184 Active Stella Ornelas [place] [facility] 6 14:43:40 Chlamydial infection 887278672 Active Stella Ornelas [place] [facility] 6 14:43:40 Sexually transmitted infectious disease 1482945 Active Stella Ornelas [place], [place] [facility] 6 14:43:40 Bacterial vaginosis 448478041 Active REKHA [place], [place] - [facility] 6 14:43:40 Abnormal cervical Papanicolao u smear 296970585 Active REKHA Stafford, [place] - [facility] 6 11:55:21 Atypical squamous cells of undetermine d significanc e on cervical Papanicolao u smear 894810382 Active REKHA Carr, [facility] 6 14:43:40 Abnormal vaginal bleeding 605314399 Active REKHA Carr, [place] - [place] 6 14:43:40 Acute tonsillitis 45041914 Active REKAH Carr, [facility] 6 14:43:40 Cervical intraepithe lial neoplasia grade 1 048378782 Active REKHA Carr, [place] 6 14:43:40 61217611 Completed 201605/22/2017 Lakia Dumont MA carlyle, [facility] 7 16:07:57 Problem Notes None recorded. Procedures Surgical History Date Name Laterality Status Provider Name and Address Organization Details Recorded Time 7 Date of Last Pap Smear completed Lakia Dumont MA [facility] 05/22/2017 16:03:30 6 Colposcopy completed Jamison Mitchell [facility] 05/03/2016 11:05:19 2 Colposcopy completed Lakia Dumont MA [facility] 05/03/2016 10:24:03 Imaging Results Imaging Date Name Status LastModified by Organiz ation Details LastModified Time 02/07/2017 US, obstetric, follow-up active [facility] [address] [place] [address], [address], 03/10/2017 16:08:23 03/03/2017 US, obstetric, follow-up completed [address] (One Call Scheduling) [address] [place], [address], 06/08/2017 16:14:10 04/24/2017 US, obstetric, 2nd trimester completed [email or web address] Information not available 05/22/2017 18:09:43 06/19/2017 XR, hand completed [facility] (Imaging) [address] [place], [address], 11/30/2017 14:17:56 Procedure Notes None recorded. Medical Equipment None Reported. Allergies Allergen ID Allergen Name Allergen Category Reaction Reaction Severity Criticality Documentation Date Start Date Code Code System Note Provider Name and Address Organization Details Recorded Time 71750 Substance with sulfonami de structure and antibacte rial mechanism of action (substanc e) medicatio n rash mild Not available 08/01/2014 43853 8003 SNOMED REKHA Stafford, [place] - [facility] 5 16:06:10 88060 clindamyc in Not available rash mild Not available 08/01/2014 2582 RxNorm REKHA [place], [place] - [facility] 5 16:08:28 65049 Bactrim medicatio n rash Not available Not available 08/01/2014 64214 9 RxNorm REKHA [place], [place] [facility] 5 16:09:02 Medications Name Sig Start Date Stop Date [...] Updated DateTime 05/22/2017 162.56 cm 26.4 kg/m2 19227.88369 g Lakia Dumont MA [facility] 05/22/2017 16:07:54 Date Recorded Body height Body mass index (BMI) Body weight Systolic blood pressure Diastolic blood pressure Provider Name and Address Organization Details Last Updated DateTime 11/30/2017 162.56 cm 28 kg/m2 79101.56 g 100 mm[Hg] 68 mm[Hg] Suzanne Hernandez MA [facility] 8 12:12:44 Date Recorded Body height Body mass index (BMI) Body weight Systolic blood pressure Diastolic blood pressure Provider Name and Address Organization Details Last Updated DateTime 03/31/2017 162.56 cm 29.2 kg/m2 72607.70 29 g 100 mm[Hg] 74 mm[Hg] Lakia Dumont MA [facility] 7 16:07:17 Date Recorded Body height Body mass index (BMI) Body weight Provider Name and Address Organization Details Last Updated DateTime 04/06/2017 162.56 cm 29.2 kg/m2 28849.7029 g Lakia Dumont MA [facility] 04/06/2017 16:54:49 Date Recorded Systolic blood pressure Diastolic blood pressure Provider Name and Address Organization Details Last Updated DateTime 04/06/2017 97 mm[Hg] 46 mm[Hg] Jamison Mitchell [facility] 03/19 17:18:29 Date Recorded Body height Body mass index (BMI) Systolic blood pressure Diastolic blood pressure Provider Name and Address Organization Details Last Updated DateTime 04/13/2017 162.56 cm 29.5 kg/m2 94 mm[Hg] 62 mm[Hg] Lakia Dumont MA [facility] 04/13/2017 16:57:45 Date Recorded Body weight Provider Name an d Address Organization Details Last Updated DateTime 04/13/2017 37582.49936 g Haritha Bronson MA [facility] 04/13/2017 17:51:53 Social History Question Answer Notes LastModified by Organizat ion Details LastModified Time Tobacco Smoking Status Never Smoker Lakia LatifREKHA watkins [facility], [place] - [place] 06/25/2015 11:46:09 Do You Have An Advance Directive? No Information not available 06/25/2015 Is Blood Transfusion Acceptable In An Emergency? Yes Information not available 06/25/2015 What Is Your Level Of Caffeine Consumption? Occasional Information not available 06/25/2015 How Much Tobacco Do You Chew? None Information not available 06/25/2015 What Type Of [...] How Much Tobacco Do You Smoke? No [email or web address] Information not available 03/24/2017 General Stress Level Medium Information not available 06/25/2015 Do You Use Sunscreen Routinely? Yes Information not available 06/25/2015 How Many Years Have You Smoked Tobacco? 0 [email or web address] Information not available 03/24/2017 Sex: Unknown Functional Status Question Answer Note LastModified by Organizat ion Details LastModified Time What is your level of alcohol consumption? Occasional [email or web address] Information not available 01/02/2015 Are you currently employed? Yes Information not available 06/25/2015 What is your exercise level? Moderate Information [...] N Blood Diseases N Hyperthyroidism N Blood Transfusion N MRSA N Blood disorders N Emphysema N Blood Clots N COPD [...] Hospitalizations N Brain Tumors N Acne N Skin Problems N Eating Disorder N Meningitis N Constipation N Tuberculosis N Cerebral Palsy N Myocardial Infarction N Asthma N Substance Abuse N Peripheral Vascular Disease N Vertigo N Sleep Disorder N Cirrhosis N Pulmonary Embolism N Chicken Pox N Hematologic Disease N Flomax Use Past or Present N Anxiety/Depression N Thyroid Disease N Colon Cancer N Lung Disease N Glaucoma N Developmental or Behavioral Disorders N Bipolar N Pacemaker N Diverticulitis/Diverticulosis N Orthopedic Problems N Anesthesia Complications N Orthotics N Head Injury/Concussion N Congenital Anomalies N العلي Bite N Chronic Kidney Disease N Endometriosis N Liver Disease N Schizophrenia N Dialysis N Speech Delay N Chronic Obstructive Pulmonary Disease N Parkinson's Disease N Thyroid Problems N GI Problems N Developmental Delay N Anemia N Multiple Sclerosis N Immune System Disorder N Colon Polyps N Heart Attack ([place]) N Diabetes N Cardiomyopathy N Blood Transfusions N Heart Problems/Murmur N Eye Trauma N Congestive Heart Failure (CHF) N Valvular Heart Disease N Hyperlipidemia N Double Vision N Abuse/Domestic Violence N Hepatitis B N Lupus N Epilepsy/Seizures N Reflux/GERD N Aneurysm N Heart Disease N Bronchitis N Pre-Eclampsia N Hypertension N Heart Failure N Other N Gout [...] N Kidney Failure N Ocular trauma N Diverticulitis N Dementia N Sleep Apnea N Mental Problems N [...] Recorded Time Tdap 02/03/2017 completed Not Available [facility] 02:42:30 Past Encounters Encounter ID Performer Location Encounter Start Date Encounter Closed Date Diagnosis/Indication Diagnosis SNOMED-CT Code Diagnosis ICD10 Code Diagnosis Note [id number] MD Donna Grande ([facility]) [address] [place] [address] 71155-534 0 08/01/2014 15:14:48 08/01/2014 16:32:58 Exposure to sexually transmissible disorder [id number] [id number] MD Donna Gray (Adult Med) [address] [place] [address] 57227-860 0 01/02/2015 10:55:39 01/02/2015 14:08:06 Lower urinary tract infectious disease 4085472 Urogenital infection by Trichomonas vaginalis 28703674 this is an error., shall be the chlamydia. Chlamydial infection 937587355 [id number] MD Donna Gray (Adult Med) [address] [place] [address] [phone] 0 04/27/2015 15:22:56 04/27/2015 17:00:05 Sexually transmitted infectious disease 5575400 A64 [id number] [facility] [address] [place] [address] 96446-956 0 06/25/2015 10:58:23 06/25/2015 13:55:16 Gynecologic examination 74751226 Z01.419 Sexually t ransmitted infectious disease 5771591 A64 Initial pr escription of oral contraception 861006417 Z30.011 [id number] MD Donna Grande ([facility]) [address] [place] [address] 11009-230 0 08/18/2015 11:37:34 08/18/2015 13:02:10 Abnormal cervical Papanicolaou smear 406773986 R87.619 Atypical s quamous cells of undetermined significance on cervical Papanicolaou smear 349229855 R87.610 Colposcopy performed yielding aceto-whit e epithelium at 12 o'clock. biopsy performed and ECC done under paracervic al clock anesthetic with 1% lidocaine. [id number] Karsten Marcelino MD [facility] ([facility]) [address] [place] [address] [id number] 0 08/20/2015 14:42:58 08/20/2015 16:39:07 Abnormal vaginal bleeding 946841116 N93.9 Patient had intercours e 48 hours after cervical biopsy and ECC. Monsills applied to cervix. Bleeding stopped. Acute tonsillitis 986389 08 J03.90 Complainin g of sore throat. Enlarged tonsills noted. Will cover with Keflex 500mg tabs One PO QID x seven days. [id number] MD Donna Grande ([facility]) [address] [place] [address] 09826-705 0 08/26/2015 14:57:13 08/27/2015 14:52:31 Abnormal cervical Papanicolaou smear 638713746 R87.619 08/26/15 Discussed results from colposcopi c cervical biopsy and ECC. Mild dysplasia found, normal ECC. Plan: conservati ve management with repeat Pap in six months for followup, Questions answered. [id number] Karsten Marcelino MD [facility] ([facility]) [address] [place] [address] [id number] 0 10/02/2015 15:49:17 10/05/2015 15:08:48 Venereal disease screening 417485952 Z11.3 Cervical intraepithelial neoplasia grade 1 897423795 N87.0 [id number] Karsten Marcelino MD [facility] ([facility]) [address] [place] [address] [id number] 0 03/18/2016 14:13:26 03/23/2016 12:01:39 Abnormal cervical Papanicolaou smear 941869739 R87.619 08/26/15 Discussed results from colposcopi c cervical biopsy and ECC. Mild dysplasia found, normal ECC. Plan: conservati ve management with repeat Pap in six months for followup, Questions answered. [id number] MD Donna Holm ([facility]) [address] [place] [address] 91264-654 0 05/03/2016 09:31:13 05/04/2016 11:40:02 Abnormal cervical Papanicolaou smear 897819630 R87.619 [facility] surveillance 099590160 Z30.09 [id number] MD Donna Gray (Adult Med) [address] [place] [address] [id number] 0 07/18/2016 15:55:00 07/18/2016 17:22:37 Recurrent acute tonsillitis 167814589 J03.91 [id number] MD Donna Reyna ([facility]) [address] [place] [address] 97026-480 0 09/07/2016 11:03:22 09/07/2016 16:56:32 Routine care 647911393 Z34.91 Morning sickness 0385964 6 O21.9 Cervicovag inal cytology: Low grade squamous intraepithelial lesion 361381123 R87.612 H/O LGSIL. S/P COLPOSCOPY Positive s creening for depression on PHQ-9 (Patient Health Questionnaire 9) 3002638655 21128 Z13.89 counseled about it. denies suicidal or homicidal thoughts. [id number] MD Donna Reyna ([facility]) [address] [place] [address] 38135-403 0 09/30/2016 10:52:31 09/30/2016 11:26:22 Routine care 652738605 Z34.91 [id number] MD Donna Reyna ([facility]) [address] [place] [address] 16860-948 0 10/05/2016 14:06:04 10/06/2016 12:58:21 Routine care 676026722 Z34.91 [id number] MD Donna Reyna ([facility]) [address] [place] [address] 67984-136 0 11/02/2016 13:42:41 11/03/2016 16:21:25 Routine care 557150240 Z34.91 Cervicovag inal cytology specimen unsatisfactory 915732706 R87.394 [id number] MD Donna Reyna ([facility]) [address] [place] [address] 99270-027 0 11/30/2016 15:29:36 12/02/2016 14:15:57 Routine care 043872048 Z34.91 reviewed anatomy ultrasound - growth 10.9 %. D/W patient. Will repeat ultrasound for growth and dopplers [id number] MD Donna Reyna ([facility]) [address] [place] [address] [id number] 0 12/28/2016 15:32:29 12/28/2016 16:46:04 Routine care 793657565 Z34.91 [id number] MD Donna Reyna ([facility]) [address] [place] [address] 52316-733 0 02/03/2017 09:35:46 02/03/2017 11:24:16 Diabetes mellitus screening 002466078 Z13.1 Routine an tenatal care 162548570 Z34.91 Acid reflux 764826860 K2 1.9 with nausea [id number] MD Donna Reyna ([facility]) [address] [place] [address] [id number] 0 02/23/2017 15:37:23 02/24/2017 10:34:58 Routine care 840591369 Z34.91 Bacterial vaginosis 4197 39852 N76.0 US obstetr ic scan abnormal 291517546 O28.3 INTRA CARDIAC FOCI. Counseled about it. [facility] consult [id number] MD Donna Reyna ([facility]) [address] [place] [address] 64872-248 0 03/10/2017 15:45:22 03/10/2017 16:07:37 Routine care 321046236 Z34.91 [id number] MD Donna Reyna ([facility]) [address] [place] [address] 40534-364 0 03/24/2017 15:39:54 03/24/2017 16:27:31 Routine care 746656387 Z34.93 Bacterial vaginosis 4197 87575 N76.0 COUNSELED ABOUT IT. [id number] MD Donna Reyna ([facility]) [address] [place] [address] [phone] 0 03/31/2017 15:34:07 03/31/2017 16:11:31 Routine care 141363350 Z34.93 [id number] MD Donna Holm ([facility]) [address] [place] [address] 89921-663 0 04/06/2017 16:45:28 04/06/2017 17:17:21 Routine care 368219647 Z34.83 [id number] MD Donna Holm ([facility]) [address] [place] [address] 82687-282 0 04/13/2017 16:18:58 04/13/2017 17:15:12 Routine care 708562327 Z34.83 [id number] MD Donna Holm ([facility]) [address] [place] [address] 05/22/2017 14:47:41 05/22/2017 17:25:12 care 657905212 Z39.2 Exposure t o sexually transmissible disorder 200850828 Z20.2 Uses depot contraception 205160571 Z30.968 [id number] MD Donna Holm ([facility]) [address] [place] [address] 11/30/2017 11:27:23 11/30/2017 14:04:09 Exposure to sexually transmissible disorder 390161762 Z20.2 Family jad nning surveillance 814096367 Z30.09 Health Concerns Section Related Observation LastModified by Organization Detai ls LastModified Time None Recorded Concern Status LastModified by Organization Details LastModified Time None Recorded Advance Directives Directive N: Payers Encounter Date Sequence Insurance Name Policy Number Policy Fox Covered Member ID Fox Member ID Guarantor Name 03/31/2017 1 [facility] PRIOR TO 12/17/2020 (MEDICAID REPLACEMENT - HMO) Socorro Newell [id number] Socorro Newell 04/06/2017 1 [facility] PRIOR TO 12/17/2020 (MEDICAID REPLACEMENT - HMO) Socorro Newell [id number] Socorro Newell 04/13/2017 1 [facility] PRIOR TO 12/17/2020 (MEDICAID REPLACEMENT - HMO) Socorro Newell [id number] Socorro Newell 05/22/2017 1 [facility] PRIOR TO 12/17/2020 (MEDICAID REPLACEMENT - HMO) Socorro Newell [id number] Socorro Newell 11/30/2017 1 [facility] PRIOR TO 12/17/2020 (MEDICAID REPLACEMENT - HMO) Socorro Newell [id number] Socorro Newell Notes Date Note Type Note [...] wf JENNIFER 36.3 Maryanne Braxton MD Attn: [place], [address], [facility] - SI 03/31/2017 16:10:26 7 text/html OB ProblemReported bypatient.Associated [...] JENNIFER 37.2 . h/o vag delivery Jamison Stephen t[place], [place] 04/07/2017 16:42:01 7 text/html OB ProblemReported bypatient.Associated [...] JENNIFER 38.2 . h/o vag delivery Jamison Stephen [place], [place] 04/13/2017 17:56:20 7 text/html VisitReported bypatient.Associated Symptoms:no abnormal bleeding; no pelvic pain; laceration well healed; no constipation; no fecal incontinence; no dysuria; no urinary incontinence; no fever; no problems; no mastitis 26 yo presents for PPP Jamison tadeo, [facility] 05/22/2017 18:12:04 8 text/html 26 yo presents for vag dc Jamison tadeo, [facility] 11/30/2017 14:21:12 8 text/html Vaginal DischargeReported bypatient.Associated Symptoms:no vaginal itching; no vaginal burning; no swelling/redness; no fever/chills; no diarrhea; no abdominal pain; no pelvic pain; no vaginal pain; no pain during urination; no pain during intercourse; no vaginal lump; no genital lesion; no sexually transmitted disease; no fever aJmison tadeo, [facility] 11/30/2017 14:21:12 OBGyn Episode Ob Episode Information Episode Created Date Number of Fetuses Patient Bloodtype Patient rh Status Prepregnancy Weight lbs Domestic Partner Domestic Partner Phone Father Name Senior Electrical Controls Engineer Status 06/25/19 16 1 CLOSED Fetus Data First Name Last Name Admitted to NICU Weight (g) Sex Living Outcome Pediatric Complications Fetus ID Race Codes Race Delivery Type 3316.89 15 M Full Term [id number] Vaginal Blair Calculation Initial Blair Date Initial [...] Domestic Partner Domestic Partner Phone Father Name Senior Electrical Controls Engineer Status 09/08/19 17 1 O Positive 134 ute pham undecided CLOSED Fetus Data First Name Last Name Admitted to NICU Weight (g) Sex Living Outcome Pediatric Complications Fetus ID Race Codes Race Delivery Type Jamin Sharpe 111 false 3401.94 M true Full Term 98984 2106-3 White Vaginal Blair Calculation Initial Blair Date Initial Exam Date Initial Exam Provider Initial Ultrasound Date Last Menstrual Period Date Ultra Sound Weeks Gestation 04/25/2017 09/07/2016 [email or web address] 10/11/2016 07/26/2016 12 Eighteen To Twenty Week Blair Update Ultra Sound Date Fundal Height At Umbil Quickening Date Ultra Sound Latest Weeks Gestation Final Blair Confirmed By Final Blair Confirmed Date Final Blair Date Ultra Sound Latest Days Gestation 0 [email or web address] 10/13/2016 04/25/20 17 0 Pre-kwan Flowsheet Flowsheet Date 09/07/2016 Kahn Score Blood Edema Fundus Height Fundus Units Glucose Ketones Leukocytes Nitrite Labor Signs Protein Cervic Dilation Cervic Effacement Cervic Station neg none 7 cm none negative none neg 0cm 0% - 4 Type Weight in lbs Pre/Post Dialysis Refused 134.083707777411 BP Diastolic BP Location Tested BP Systolic [...] Type Weight in lbs Pre/Post Dialysis Refused 133.826330533219 BP Diastolic BP Location Tested BP Systolic [...] Type Weight in lbs Pre/Post Dialysis Refused 134.917565657665 BP Diastolic BP Location Tested BP Systolic [...] Type Weight in lbs Pre/Post Dialysis Refused 141.712447730451 BP Diastolic BP Location Tested BP Systolic [...] Type Weight in lbs Pre/Post Dialysis Refused 151.585539320500 BP Diastolic BP Location Tested BP Systolic BP Type 66 104 sitting Fetus Heart Rate Present A 148 Present Fetus Movement A Yes Comments She say she went to ER for S OB and she had chest xray done - which is normal. Reviewed labs - normal BMP. Advised Ms. Bender to get records from [facility]. She say she was given albuterol inhaler and her SOB improved after using it, She say she refused to do CT chest at that time. Gave patient peak flow meter to check peak flows every weak. Counselled about different causes of SOBShe say she has appointment and ultrasound with M on 01/11/17.PTL, PREECLAMPSIA PRECAUTIONS DISCUSSED Flowsheet Date 02/03/2017 Kahn Score Blood Edema Fundus Height Fundus Units Glucose Ketones Leukocytes Nitrite Labor Signs Protein Cervic Dilation Cervic Effacement Cervic Station neg none 28 cm none negative none neg Type Weight in lbs Pre/Post Dialysis Refused 158.981353705031 BP Diastolic BP Location Tested BP Systolic [...] Type Weight in lbs Pre/Post Dialysis Refused 164.39099616154 BP Diastolic BP Location Tested BP Systolic [...] Type Weight in lbs Pre/Post Dialysis Refused 167.081232248568 BP Diastolic BP Location Tested BP Systolic BP Type 58 110 sitting Fetus Heart Rate Present A 139 Present Fetus Movement A Yes Comments SHE SAY SHE IS TAKING ZANTAC EVERY DAY AND HER NAUSEA IMPROVED. DENIES ANY NAUSEA AND VOMITING RECENTLY. D/W PATIENT LAB WORK AND ULTRASOUND FROM [facility].PTL, PREECLAMPSIA PRECAUTIONS AND KICK COUNTS DISCUSSED Flowsheet Date 03/24/2017 Kahn Score Blood Edema Fundus Height Fundus Units Glucose Ketones Leukocytes Nitrite Labor Signs Protein Cervic Dilation Cervic Effacement Cervic Station neg none 35 cm none negative Other (see comments ) neg 1cm 0% -4 Type Weight in lbs Pre/Post Dialysis Refused [id number] BP Diastolic BP Location Tested BP Systolic [...] Type Weight in lbs Pre/Post Dialysis Refused [id number] BP Diastolic BP Location Tested BP Systolic [...] Type Weight in lbs Pre/Post Dialysis Refused 170.955313071468 BP Diastolic BP Location Tested BP Systolic [...] Type Weight in lbs Pre/Post Dialysis Refused 172.531670183388 BP Diastolic BP Location Tested BP Systolic BP Type 62 94 sitting Fetus Heart Rate Present A 138 Present Fetus Movement A Yes Comments Consider induction after nex t week Flowsheet Date 05/22/2017 Kahn Score Blood Edema Fundus Height Fundus Units Glucose Ketones Leukocytes Nitrite Labor Signs Protein Cervic Dilation Cervic Effacement Cervic Station Type Weight in lbs Pre/Post Dialysis Refused 154.777348812143 BP Diastolic BP Location Tested BP Systolic BP Type Fetus Heart Rate Present Fetus Movement Comments Menstrual History Last Menstrual Date Menses Monthly On Bcp Conception Prior Menses Frequency Hcg Plus Date Menarche Onset Age 0207/26/2016 false 10 Genetic Screening And Infection History Question Response Note Patient's Age Will Be 35 Yea rs Or Older At Estimated Date of Delivery false Thalassemia (Yakut, Romanian, Mediterranean, Or Background): MCV < 80 false Neural Tube Defect (Meningomyelocele, Spina Bifi da, Or Anencephaly) false Congenital Heart Defect false Down Syndrome false Marquez-Sachs (eg, Church, Cajun, Sami-Bolivian) f alse Ruben Disease false Sickle Cell Disease Or Trait () false Hemophilia Or Other Blood Disorders false Muscular Dystrophy false Cystic Fibrosis false Dekalb's Chorea false Mental Retardation/Autism false If Yes, [...] By 09/07/2016 [facility] Intimate partner violence taileeroy 09/07/2016 Environmental/work hazards s cyndiedonaldo 09/07/2016 [facility] 09/07/2016 Nutrition counseling ; special diet; dietary precautions (mercury, listeriosis) [facility] Child[facility] classes/h ospital facilities given [facility]2016 HIV and other routin e tests done at [facility] 09/07/2016 Risk factors identif ied by [facility] Weight gain counseling natalya umaña 09/07/2016 [facility]07[facility]2016 [facility]at[facility] Use of any medicatio ns (including supplements, vitamins, herbs, or OTC drugs) [facility] 09/07/2016 03/31/17 bottle, cb-rma svu yyednau 09/07/2016 Sexual activity [facility] 09/07/2016 Tobacco/smoking cess ation counseling (ask, advise, assess, assist, and arrange) [facility] 09/07/2016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
--- OUTSIDE RECORDS SUMMARY | 2024-11-08 09:57 | XMS_ITS | CONTINUITY OF CARE DOCUMENT ---
Author Name chad bonilla Address Unknown Organization [facility] Address [address] [place] [address] Phone [phone] Care Team Providers Care Business Systems Architect Name Role Phone Eduardo Villarreal MD Unavailable GALILEA ZUÑIGA, NANCY Unavailable [phone] INSURANCE PROVIDERS Payer name Policy type / Coverage type [employer] ID [employer] MEDICAID (2) Medicaid [id number]
--- OUTSIDE RECORDS SUMMARY | 2024-11-08 09:57 | XMS_ITS | Data Portability ---
Author Organization [facility] Address [address] [place] [address] [address] Assessment No assessment recorded. Plan of Treatment [...] [address], [place] [address] , Iván Moscoso ra, DO, Labor atory [...] dinorah resul ts of Jessica l or Halsey silviano are deter mined by calcu latin [...] e bonifacio cteri stics deter mined by [employer] ([employer]) Patho logis [employer] d/b/a PathG roup. It has not been clear ed or appro sotero by the U.S. Food and Drug Admin istra tion. The FDA has deter mined that such clear ance or appro salome is not neces margarito. Perti nent refer ence inter vals are avail able from the labor atory on reque st. Test( s) perfo rmed by Sp[employer] ([employer]) Patho logis ts, [facility], d/b/a PathG roup, [address], [place] [address] , Iván Moscoso ra, DO, Labor atory Direc tor. Not Available [facility] ([facility]) [address], [place], [address], 10/23/2019 07:37:19 10/21/19 20 10/22/2019 bacte rial [...] rmed by Assoc iated Patho logis ts, [facility], d/b/a Hayde sage, [address], [place] [address] , Iván Moscoso ra, , Labor atory [...] dinorah resul ts of Jessica l or Halsey silviano are deter mined by calcu latin [...] e bonifacio cteri stics deter mined by [employer], [employer] d/b/a PathZawatt roup. It has not been clear ed or appro sotero by the U.S. Food and Drug Admin istra tion. The FDA has deter mined that such clear ance or appro salome is not neces margarito. Perti nent refer ence inter vals are avail able from the [facility] atory on reque st. Test( s) perfo rmed by Ass[employer]edalus [employer], d/b/a PathZawatt roup, [address], [place] [address] , Iván Moscoso ra, DO, Labor atory Direc tor. Not Available [facility] ([facility]) [address], [place], [address], 10/23/2019 07:37:19 10/21/19 20 10/22/2019 bacte rial [...] Airpa [address]k [address], [place] [address] , Iván Moscoso ra, DO, Labor atory [...] dinorah resul ts of Jessica l or Halsey silviano are deter mined by calcu latin [...] e bonifacio cteri stics deter mined by Sp[employer] ([employer]) [email or web address], [employer] d/b/a PathG roup. It has not been clear ed or appro sotero by the U.S. Food and Drug Admin istra tion. The FDA has deter mined that such clear ance or appro salome is not neces margarito. Perti nent refer ence inter vals are avail able from the labor atory on reque st. Test( s) perfo rmed by Sp[employer]ety ([employer]) [employer]o [employer], [employer], d/b/a PathG roup, [address], [place] [address] , Iván Moscoso ra, DO, Labor atory Direc tor. Not Available [facility] ([facility]) [address], [place], [address], 10/23/2019 07:37:19 11/12/19 20 11/14/2019 strep tococ cus group B DNA GB specimen source Vagina l/Rect al Not Available [facility] ([facility]) [facility], [place], [address], 11/14/2019 10:51:20 11/12/19 20 11/14/2019 strep tococ cus group B DNA spec type Cultur e Swab Not Available [facility] -[facility] ([facility]) [facility] [facility], [place], [address], 11/14/2019 10:51:20 11/12/19 20 11/14/2019 strep tococ [...] logis ts, LLC, d/b/a Brook serrano, [address], [place] [address] , Iván Moscoso ra, DO, Labor atory Direc tor. Not Available [facility] ([facility]) [address], [place], [address], 11/14/2019 10:51:20 11/19/19 20 11/20/2019 CT + [...] perfo rmed by Assoc iated Patho logis [employer], [employer], d/b/a PathLorelei serrano, [address], [place] [address] , Iván Moscoso ra, , Labor atory Direc tor. Not Available [facility] ([facility]) [address], [place], [address], 11/20/2019 17:07:09 11/19/19 20 11/20/2019 CT + [...] perfo rmed by Assoc iated Patho logis [employer], [employer], d/b/a PathG roup, [address] [facility] [address], [place] [address] , Iván Moscoso ra, DO, Labor atory Direc tor. Not Available [facility] ([facility]) [address], [place], [address], 11/20/2019 17:07:09 11/19/19 20 11/20/2019 CT + [...] Airpa [address], [place] [address] , Iván Moscoso ra, DO, Labor atory Direc tor. Not Available [facility] ([facility]) [address], [place], [address], 11/20/2019 17:07:09 Result Notes None recorded. Problems Name Problem SNOMED Code Status Onset Date Resolution Date Notes Provider Name and Address Organization Details Recorded Time Placenta previa 13421026 Active 2019 Placenta previa specifie d as w/o hemor, second trimeste r;Record ed Elsewher e: No [facility] S our[facility]: EHR Pension Manager shashank: N Practi ce ID: 0001 Jose lable Time: 02:15:00 PM Not Available [facility] 0 18:54:26 Gestatio n period, 8 weeks 46568838 Active 2018 8 weeks gestatio n of pregnanc y;Record ed Elsewher e: No Locat ion: [facility] S ource: EHR Pension Manager shashank: N Practi ce ID: 0001 Jose lable Time: 03:45:00 PM Not Available [employer] 0 18:54:26 Rubella screenin g status 851704965 Active 2018 Encounte r for antenata l screenin g, unspecif ied;Gomez rded Elsewher e: No [facility]at [facility] S ource: EHR Pension Manager shashank: N Practi ce ID: 0001 Jose lable Time: 11:15:00 AM Not Available [employer] 0 18:54:26 Abnormal uterine bleeding 38430834600 100 Active 2017 Other specifie d abnormal uterine and vaginal bleeding ;Recorde d Elsewher e: No Locat ion: [place] bonilla [facility] S ource: EHR Pension Manager shashank: N Eliseti ce ID: 0001 Jose lable Time: 03:00:00 PM Not Available [facility] 0 18:54:26 Screenin g for malignan t neoplasm of cervix Active 2010 Screenin g for malignan t neoplasm s of the cervix;R ecorded Elsewher e: No Locat ion: [place] bonilla [facility] S ource: EHR Pension Manager shashank: N Practi ce ID: 0001 Jose lable Time: 08:30:00 AM Not Available [facility] 0 18:54:26 Pregnanc y detectio n examinat ion Active 2018 Encounte r for pregnanc y test, result positive ;Recorde d Elsewher e: No Locat ion: [place] bonilla [facility] S ource: EHR Pension Manager shashank: N Eliseti ce ID: 0001 Jose lable Time: 03:45:00 PM Not Available [facility] 0 18:54:26 Antenata l screenin g for malforma tion Active 2019 Encounte r for antenata l screenin g for malforma tions;Re corded Elsewher e: No Locat ion: [place] bonilla [facility] S ource: EHR Pension Manager shashank: N Eliseti ce ID: 0001 Joes lable Time: 01:00:00 PM Not Available [facility] 0 18:54:26 Normal pregnanc y in multigra polly [id number] 4106 Active 2019 Encounte r for suprvsn of normal pregnanc y, third trimeste r;Record ed Elsewher e: No [facility] S ource: EHR Pension Manager shashank: N Eliseti ce ID: 0001 Jose lable Time: 10:45:00 AM Not Available [facility] 0 18:54:27 Blood leukocyt e number above referenc e range 072930190 Active 2018 Elevated white blood cell count, unspecif ied;Gomez rded Elsewher e: No Locat ion: [place] bonilla [facility] S ource: EHR Pension Manager shashank: N Practi ce ID: 0001 Jose lable Time: 10:45:00 AM Not Available [facility] 0 18:54:27 Pregnanc y test negative 727418261 Active 2017 Encounte r for pregnanc y test, result negative ;Recorde d Elsewher e: No Locat ion: [place] bonilla [facility] S ource: EHR Pension Manager shashank: N Practi ce ID: 0001 Jose lable Time: 01:30:00 PM Not Available [facility] 0 18:54:27 Bleeding 759759480 Active 2017 Abnormal uterine and vaginal bleeding , unspecif ied;Gomez rded Elsewher e: No Locat ion: [place] bonilla [facility] S ource: EHR Pension Manager shashank: N Practi ce ID: 0001 Jose lable Time: 03:30:00 PM Not Available [facility] 0 18:54:27 Cytologi c finding 938180124 Active 2011 Papanico laou smear of cervix with low grade squamous intraepi thelial lesion (LGSIL); Recorded Elsewher e: No Locat ion: [place] bonilla [facility] S ource: EHR Pension Manager shashank: N Eliseti ce ID: 0001 Jose lable Time: 11:00:00 AM Not Available [facility] 0 18:54:27 Acute vaginiti s 57838542 Active 2018 Acute vaginiti s;Record ed Elsewher e: No Locat ion: [place] bonilla [facility] S ource: EHR Pension Manager shashank: N Practi ce ID: 0001 Jose lable Time: 11:30:00 AM Not Available [facility] 0 18:54:27 Gestatio n period, 25 weeks 11851113 Active 2019 25 weeks gestatio n of pregnanc y;Record ed Elsewher e: No Locat ion: Carleyalberto irene [facility] S ource: EHR Pension Manager shashank: N Practi ce ID: 0001 Jose lable Time: 02:15:00 PM Not Available [facility] 0 18:54:27 Speciali zed medical examinat ion Active 2010 Gynecolo gical Examinat ion;Gomez rded Elsewher e: No Locat ion: [place] bonilla [facility] S ource: EHR Pension Manager shashank: N Eliseti ce ID: 0001 Jose lable Time: 08:30:00 AM Not Available [facility] 0 18:54:27 Antenata l screenin g Active 2019 Encounte r for other antenata l screenin g follow-u p;Record ed Elsewher e: No Locat ion: [place] bon[place] [facility] S ource: EHR Pension Manager shashank: N Practi ce ID: 0001 Jose lable Time: 02:15:00 PM Not Available [facility] 0 18:54:28 Threaten ed miscarri age 03498903 Active 2018 Threaten ed ;Recorde d Elsewher e: No Locat ion: [place] bon[place] [facility] S ource: EHR Pension Manager shashank: N Practi ce ID: 0001 Jose lable Time: 03:15:00 PM Not Available [facility] 0 18:54:28 Pregnanc y test positive 951080713 Active 2010 Pregnanc y examinat ion or test, positive result;R ecorded Elsewher e: No [facility] S ource: EHR Pension Manager shashank: N Practi ce ID: 0001 Jose lable Time: 08:30:00 AM Not Available [facility] 0 18:54:28 Finding of contents of cervix 085275010 Active 2018 Weeks of gestatio n of pregnanc y not specifie d;Record ed Elsewher e: No Locat ion: [facility] irene [facility] S ource: EHR Pension Manager shashank: N Practi ce ID: 0001 Jose lable Time: 03:15:00 PM Not Available [facility] 0 18:54:28 anatomy study Active 2011 SCRN ANATMC SURVEY;P ractice ID: 0001 Not Available [facility] 0 18:54:28 Primigra polly 930103159 Active 2011 Supervis ion of normal first pregnanc y;Practi ce ID: 0001 Not Available [facility] 0 18:54:28 Nausea and vomiting 44576304 Active 2019 Nausea with vomiting , unspecif ied;Prac renetta ID: 0001 Not Available [facility] 0 18:54:31 Clinical finding Active 2019 Encntr for suprvsn of normal pregnanc y, unsp, unsp trimeste r;Practi ce ID: 0001 Not Available [facility] 0 18:54:31 Pregnanc y 22997557 Completed 201907/06/2020 [facility] 1 13:06:02 Chlamydi al infectio n 278646963 Active 2019 OMA AT 32 WEEK [facility] 0 17:21:14 Choroid plexus cyst 288328759 Completed [facility] 1 13:05:57 Notes:Desires BTL - needs to sign IDPA consent at 24-28wks Problem Notes None recorded. Procedures Surgical History Date Name Laterality Status Provider Name and Address Organization Details Recorded Time 0 ligation of bilateral fallopian tubes completed Deisy Polanco [facility] 12/08/2019 15:15:18 Imaging Results None recorded. Procedure Notes None recorded. Medical Equipment None Reported. Allergies Allergen ID Allergen Name Allergen Category Reaction Reaction Severity Criticality Documentation Date Start Date Code Code System Note Provider Name and Address Organization Details Recorded Time 262 sulfameth oxazole medicatio n Not available Not available Not available 10/07/2019 08270 RxNorm Julieth Terence [facility] 0 13:58:06 93 clindamyc in Not available Not available Not available Not available 10/01/2019 2582 RxNorm Helene Lee [facility] 0 09:23:31 94 Substance with sulfonami de structure and antibacte rial mechanism of action (substanc e) medicatio n Not available Not available Not available 10/01/2019 23805 8003 SNOMED [facility] 0 09:23:38 95 trimethop rim medicatio n Not available Not available Not available 10/01/2019 40719 RxNorm [facility] 0 09:23:52 Medications Name [...] Prescrib ed Elsewher e: Yes Loca tion: [facility] odify By: claudette villarreal DateTime : 06/16/20 11 08:30:00 AM Not Available Not Available Not Available ibuprofen 600 mg tablet active Not Available Not Available Not Available Vitamin D2 1,250 mcg (50,000 unit) capsule take 1 capsule (82176DN ITS) by oral route every week 02/13 completed Prescrib ed Elsewher e: No Locat ion: Carleyalberto [facility] odify By: claudette Chanel [...] Elsewher e: No Locat ion: [place] bonilla [facility] odify By: claudette Chanel r DateTime : 06/24/19 12 08:43:51 AM Not Available Not Available Not Available CitraNata l 90 DHA (algal oil) 90 mg iron-1 mg-50 mg-300 mg oral pack TAKE 1 PACK BY MOUTH EVERY DAY 11/11 completed Not Available Not Available Not Available 28 mg-800 mcg tablet . 2018 active Prescrib ed Elsewher e: No Locat ion: [place] bonilla [facility] odify By: [email or web address] Encount er DateTime : 05/30/20 19 11:15:00 AM Not Available Not Available Not Available Se-Chava 19 29 mg iron-1 mg tablet take 1 tablet by oral route every day 02/13 completed Prescrib ed Elsewher e: No Locat ion: Carleyjessicaliliana [facility] odify By: claudette Chanel r DateTime : 06/23/19 12 01:27:56 PM Not Available Not Available Not Available Vitals Date Recorded Body height Body mass index (BMI) Body weight Systolic blood pressure Diastolic blood pressure Provider Name and Address Organization Details Last Updated DateTime 11/12/2019 162.56 cm 30.6 kg/m2 32567.44 186 g 112 mm[Hg] 75 mm[Hg] [facility] 0 14:45:39 Date Recorded Body height Body mass index (BMI) Body weight Systolic blood pressure Diastolic blood pressure Provider Name and Address Organization Details Last Updated DateTime 11/19/2019 162.56 cm 30.9 kg/m2 86300.62 66 g 118 mm[Hg] 76 mm[Hg] [facility] 0 15:03:07 Date Recorded Body height Body mass index (BMI) Body weight Systolic blood pressure Diastolic blood pressure Provider Name and Address Organization Details Last Updated DateTime 11/27/2019 162.56 cm 30.9 kg/m2 02435.62 66 g 110 mm[Hg] 74 mm[Hg] [facility] 0 09:35:11 Date Recorded Body height Body mass index (BMI) Systolic blood pressure Diastolic blood pressure Provider Name and Address Organization Details Last Updated DateTime 12/05/2019 162.56 cm 27.8 kg/m2 103 mm[Hg] 70 mm[Hg] [facility] 12/05/2019 14:12:09 Date Recorded Body weight Provider Name an d Address Organization Details Last Updated DateTime 12/05/2019 77248.71816 lorelei Jones [facility] 07/06/2020 13:06:00 Social History None recorded. Functional Status Question Answer Note LastModified by Organizat ion Details LastModified Time What is your level of alcohol consumption? None Information not available 10/07/2019 What is your exercise level? Occasional walking [...] Code Diagnosis ICD10 Code Diagnosis Note 1370 Santosh Rodriguez CNM [place] [address] [address] 10/07/2019 13:50:26 10/07/2019 14:25:54 Routine care 108117626 Z34.93 2972 [facility] [address] [address] 10/21/2019 14:38:01 10/21/2019 15:20:25 Routine care 140033582 Z34.93 Normal 9979709 2 Z34.90 4629 [facility] [address],[place] [address] 11/04/2019 14:29:58 11/04/2019 15:29:10 Routine care 338190267 Z34.93 5376 Santosh Rodriguez [facility] [address],[place] [address] 11/12/2019 14:40:16 11/12/2019 16:18:20 Routine care 907411664 Z34.93 6267 [facility] [address],[place] [address] 11/19/2019 14:45:14 11/19/2019 16:25:30 Routine care 381314693 Z34.93 7266 Santosh Rodriguez [facility] [address],[place] [address] 11/27/2019 09:30:37 11/27/2019 10:07:52 Routine care 601734757 Z34.93 7676 Kinjal Guaman MD [facility] [address] [address] 11/29/2019 00:01:51 11/29/2019 00:03:01 8536 Kinjal Guaman MD [place] [address] [address] 12/05/2019 14:07:56 12/05/2019 14:30:56 Female sterilization 08347082 Z30.2 Doing well one week s/p BTL. Return in 3 weeks for visit Health Concerns Section Related Observation LastModified by Organization Detai ls LastModified Time None Recorded Concern Status LastModified by Organization Details LastModified Time None Recorded Advance Directives Directive None Recorded Payers Encounter Date Sequence Insurance Name Policy Number Policy Fox Covered Member ID Fox Member ID Guarantor Name 11/12/2019 1 [facility] PRIOR TO 12/17/2020 (MEDICAID REPLACEMENT - HMO) [facility] [place] [id number] 11/19/2019 1 [facility] PRIOR TO 12/17/2020 (MEDICAID REPLACEMENT - HMO) [facility] [place] [id number] 11/27/2019 1 [facility] PRIOR TO 12/17/2020 (MEDICAID REPLACEMENT - HMO) [place] [id number] 11/28/2019 1 [facility] PRIOR TO 12/17/2020 (MEDICAID REPLACEMENT - HMO) [facility] [place] [id number] 12/05/2019 1 [facility] PRIOR TO 12/17/2020 (MEDICAID REPLACEMENT - HMO) [facility] [place] [id number] Notes Date Note Type Note Provider Name and Address Organization Details Recorded Time 12/05/2019 text/html Post-OpReported bypatient.Associ ated Symptoms:incisio n healing well; no fatigue; normal appetite; normal bowel function; no constipation; no nausea; no emesis; pain improving; no pain; no fever; no bleeding; no lower extremity edema/pain; no dysuria/urinary symptoms ARIANA Lee - [facility] 12/05/2019 14:27:31 OBGyn Episode Ob Episode Information Episode Created Date Number of Fetuses Patient Bloodtype Patient rh Status Prepregnancy Weight lbs Domestic Partner Domestic Partner Phone Father Name Fagot Maker Status 10/07/19 20 1 O Positive 148 CLOSED Fetus Data First Name Last Name Admitted to NICU Weight (g) Sex Living Outcome Pediatric Complications Fetus ID Race Codes Race Delivery Type 641 Problems Problem Notes pt desires BTL -pt signed ID PA consent on 09-23-19 Problem Name Start Date End Date Resolution Snomed Code Not e Choroid plexus cyst 124213098 Blair Calculation Initial Blair Date Initial Exam [...] Weight in lbs Pre/Post Dialysis Refused Weight 169.672970939108 BP Diastolic BP Location Tested BP Systolic [...] Weight in lbs Pre/Post Dialysis Refused Weight 172.850628555528 BP Diastolic BP Location Tested BP Systolic [...] Weight in lbs Pre/Post Dialysis Refused Weight 177.035561693273 BP Diastolic BP Location Tested BP Systolic [...] Weight in lbs Pre/Post Dialysis Refused Weight 178.924318732206 BP Diastolic BP Location Tested BP Systolic [...] Weight in lbs Pre/Post Dialysis Refused Weight 180.712804794194 BP Diastolic BP Location Tested BP Systolic [...] Weight in lbs Pre/Post Dialysis Refused Weight 113.092604707602 BP Diastolic BP Location Tested BP Systolic BP Type 73 112 sitting Fetus Heart Rate Present A 145 Fetus Movement A Yes Comments Flowsheet Date 08/26/2019 Kahn Score Blood Edema Fundus Height Fundus Units Glucose Ketones Leukocytes Nitrite Labor Signs Protein Cervic Dilation Cervic Effacement Cervic Station trace 24 trace Type Weight in lbs Pre/Post Dialysis Refused Weight 163.374068265861 BP Diastolic BP Location Tested BP Systolic BP Type Fetus Heart Rate Present A 155 Fetus Movement A Yes Comments Flowsheet Date 09/23/2019 Kahn Score Blood Edema Fundus Height Fundus Units Glucose Ketones Leukocytes Nitrite Labor Signs Protein Cervic Dilation Cervic Effacement Cervic Station none 30 trace Type Weight in lbs Pre/Post Dialysis Refused Weight 166.119387617550 BP Diastolic BP Location Tested BP Systolic [...] Weight in lbs Pre/Post Dialysis Refused Weight 180.060778955749 BP Diastolic BP Location Tested BP Systolic [...] Weight in lbs Pre/Post Dialysis Refused Weight 162.843241334441 BP Diastolic BP Location Tested BP Systolic [...] Estim ated Date of Delivery false Thalassemia (Amharic, Tunisian, Mediterranean, Or Background): MCV < 80 false Neural Tube Defect (Meningomyelocele, Spina Bifi da, Or Anencephaly) false Congenital Heart Defect false Down Syndrome false Marquez-Sachs (eg, Restorationist, Cajun, Japanese-Bruneian) f alse Ruben Disease false Sickle Cell Disease Or Trait () false Hemophilia Or Other Blood Disorders false Muscular Dystrophy false Cystic Fibrosis false David's Chorea false Intellectual Disability/Autism false If Yes, [...] Domestic Partner Domestic Partner Phone Father Name Fagot Maker Status 10/07/19 1 CLOSED Fetus Data First [...] Domestic Partner Domestic Partner Phone Father Name Fagot Maker Status 10/07/19 20 1 CLOSED Fetus Data [...] Domestic Partner Domestic Partner Phone Father Name Fagot Maker Status 12/16/19 20 1 CLOSED Fetus Data [...]
--- OUTSIDE RECORDS SUMMARY | 2024-11-08 09:57 | XMS_ITS | Continuity of Care Document ---
Author Name [facility] Address [address] [place] [address] Organization [facility] Care Team Providers Care Shot Core Drill Operator Helper Name Role Phone [facility] Unavailable Unavailable Problems Problem Status Onset Date [...] Comments Source clindamycin Assertion Drug allergy Active [facility] Bactrim Assertion Drug allergy Active [facility] sulfa drugs Assertion Drug allergy Active [facility]
== END 2024-11-08 09:53 | disposition home or self-care (01) ==
PROVIDERS: PCP Family Medicine; Visit Provider Nurse Practitioner
DX: R74.8 Abnormal levels of other serum enzymes (principal); K80.20 Calculus of gallbladder without cholecystitis without obstruction
CPT/HCPCS: 76700

== ENCOUNTER 2025-01-07 14:44 | Emergency (ER) | payer OTHER, SELFPAY ==
--- OUTSIDE RECORDS SUMMARY | 2025-01-07 14:48 | XMS_ITS | Continuity of Care Document ---
Author Name [facility] Address [address] [place] [address] Organization [facility] Care Team Providers Care Assembler Handbags Name Role Phone [facility] Unavailable Unavailable Problems Problem Status Onset Date [...] Comments Source clindamycin Assertion Drug allergy Active [facility] Bactrim Assertion Drug allergy Active [facility] sulfa drugs Assertion Drug allergy Active [facility]
--- OUTSIDE RECORDS SUMMARY | 2025-01-07 14:48 | XMS_ITS | Clinical Summary ---
Author Organization [facility] [employer] Address [address] [place] [address] Care Team Providers Care Fire Hose Curer Name Role Phone Unknown, Provider Primary Care Provider Unavaila ble Source Comments [facility], [facility],non-owned Affiliates and Associated Physician Practices is amultiple site organization consisting of ambulatory clinics and hospital sitesin [place], [place], [place] and [place]. This disclosure is being madepursuant to the Care Everywhere program and may not contain all information available regarding this patient. Last updated 18.[facility] [employer] Allergies Active Allergy Reactions Criticality Noted Date [...] echogenic focus 03/03/2017 Supervision of normal in [facility] er 03/03/2017 Social History Tobacco Use Types Packs/Day Years Used Date Smoking Tobacco: Never Comments No Sex and Gender Information Value Date Recorded Sex Assigned at Not on file Legal Sex Female 9:35 AM MANAGER SALT Gender Identity Not on file Sexual Orientation Not on file Last Filed Vital Signs Vital Sign Reading Time Taken Comments Blood Pressure 106/68 07/07/2016 12:06 PM MANAGER SALT Pulse 78 07/07/2016 12:06 PM MANAGER SALT Temperature 36.8 C (98.2 F) 07/07/2016 12:06 PM MANAGER SALT Respiratory Rate 18 07/07/2016 12:06 PM MANAGER SALT Oxygen Saturation - - Inhaled Oxygen Concentration - - Weight 63.5 kg (140 lb) 07/07/2016 12:06 PM MANAGER SALT Height 162.6 cm (5' 4) 07/07/2016 12:06 PM MANAGER SALT Body Mass Index 24.03 07/07/2016 12:06 PM MANAGER SALT Plan of Treatment Health Maintenance Due Date Last Done Comments HIV SCREENING 2007 HEPATITIS C SCREENING 07/01/2010 DTAP/TDAP/TD VACCINES (1 - Tdap) 2011 HEPATITIS B VACCINE (1 of 3 - 19+ 3-dose series) 2011 HPV VACCINE (1 - 3-dose SCDM series) 2019 COVID-19 VACCINE (1 - 2023-2 5 season) 2024 DEPRESSION SCREENING 06/19/2024 INFLUENZA VACCINE (#1) 2025 ZOSTER VACCINE (1 of 2) 2042 [...] to complete this topic Insurance Care Teams Fire Hose Curer Relationship Specialty Start Date End Date Unknown, Provider PCP - General 07/07/16
[2025-01-07 14:50] VITALS: BP 110/68; PULSE 62; RESP 16; TEMP 36.6; O2SAT 100
--- NOTE | 2025-01-07 17:43 | PC.NURSE ---
Pt called for MSE, no response
--- NOTE | 2025-01-07 17:44 | PC.NURSE ---
pt called to [facility]riane, not in lobby, pt lwbs
--- OUTSIDE RECORDS SUMMARY | 2025-01-07 17:58 | XMS_ITS ---
Author Organization Unknown Plan of Treatment Description Planned Activity Planned Timing [facility] is a provider organization who partners directly with Health Plans and provides integrated primary care, behavioral health, and neonatal social worker for an attributed population Letter encounter to patientTelephone encounter Dec 12, 2024Jul 2024 Patient Care team information Name Category Status Period Participants - - Proposed period not known -
--- OUTSIDE RECORDS SUMMARY | 2025-01-07 17:58 | XMS_ITS | Clinical Summary ---
Author Organization [facility] [employer] Address [address] [place] [address] Care Team Providers Care Soil Specialist Name Role Phone Unknown, Provider Primary Care Provider Unavaila ble Source Comments [facility],non-owned Affiliates and Associated Physician Practices is amultiple site organization consisting of ambulatory clinics and hospital sitesin [place], [place], [place]. This disclosure is being madepursuant to the Care Everywhere program and may not contain all information available regarding this patient. Last updated 18.[facility] [employer] Allergies Active Allergy Reactions Criticality Noted Date [...] echogenic focus 03/03/2017 Supervision of normal in [facility] er 03/03/2017 Social History Tobacco Use Types Packs/Day Years Used Date Smoking Tobacco: Never Comments No Sex and Gender Information Value Date Recorded Sex Assigned at Not on file Legal Sex Female 9:35 AM SYSTEMS LIBRARIAN Gender Identity Not on file Sexual Orientation Not on file Last Filed Vital Signs Vital Sign Reading Time Taken Comments Blood Pressure 106/68 07/07/2016 12:06 PM SYSTEMS LIBRARIAN Pulse 78 07/07/2016 12:06 PM SYSTEMS LIBRARIAN Temperature 36.8 C (98.2 F) 07/07/2016 12:06 PM SYSTEMS LIBRARIAN Respiratory Rate 18 07/07/2016 12:06 PM SYSTEMS LIBRARIAN Oxygen Saturation - - Inhaled Oxygen Concentration - - Weight 63.5 kg (140 lb) 07/07/2016 12:06 PM SYSTEMS LIBRARIAN Height 162.6 cm (5' 4) 07/07/2016 12:06 PM SYSTEMS LIBRARIAN Body Mass Index 24.03 07/07/2016 12:06 PM SYSTEMS LIBRARIAN Plan of Treatment Health Maintenance Due Date [...] to complete this topic Insurance Care Teams Soil Specialist Relationship Specialty Start Date End Date Unknown, Provider PCP - General 07/07/16
--- OUTSIDE RECORDS SUMMARY | 2025-01-07 17:58 | XMS_ITS | Continuity of Care Document ---
Author Name [facility] Address [address] [place] [address] Organization [facility] Care Team Providers Care Licensed Physical Therapist Assistant Name Role Phone [facility] Unavailable Unavailable Problems Problem Status Onset Date [...] Source clindamycin Assertion Drug allergy Active [facility] Bactrim Assertion Drug allergy Active [facility] sulfa drugs Assertion Drug allergy Active [facility]
== END 2025-01-07 18:34 | disposition left against medical advice (07) ==
LOC: ANHED 17:56
PROVIDERS: PCP Family Medicine
DX: R10.30 Lower abdominal pain, unspecified (principal)
CPT/HCPCS: 99199

== ENCOUNTER 2025-01-08 06:30 | Emergency (ER) | payer OTHER, SELFPAY ==
--- NOTE | ~2025-01-08 | CT_ITS ---
EXAMINATION: CT abdomen pelvis w con DATE: 01/08/2025 07:54 INDICATION: Lower abdominal pain TECHNIQUE: Computed tomography (CT) of the abdomen and pelvis was performed without intravenous contr ast. The dose-length product was 249.77 mGy-cm. Automated exposure control and iterative reconstructi on technique were employed. COMPARISON: None. FINDINGS: Lung bases unremarkable. No significant pleural or pericardial effusion. Heart size normal. The liver, spleen, pancreas, adrenal glands and left kidney are unremarkable. There is nonobstructin g 3 mm right renal stone. Gallbladder is present. Nonobstructive bowel gas pattern. No significant va scular abnormality. No lymphadenopathy. Prominent periuterine and an ovarian veins, consistent with p elvic congestion syndrome. No free air or free fluid. Gallbladder is present. Nonobstructive bowel ga s pattern. Small amount of free fluid in the pelvis. No acute osseous abnormality. IMPRESSION: 1. Prominent periuterine and ovarian veins, compatible with pelvic congestion, likely related to pelv ic congestion syndrome if clinical symptoms support. Consider further evaluation with pelvic MR venog kevin if symptoms are significant or atypical. 2: Nonobstructing right nephrolithiasis. Reviewed, dictated and finalized at location A. IMPRESSION: 1. Prominent periuterine and ovarian veins, compatible with pelvic congestion, likely related to pelvic congestion syndrome if clinical symptoms support. Cons ider further evaluation with pelvic MR venography if symptoms are significant o r atypical. 2: Nonobstructing right nephrolithiasis.
[2025-01-08 06:32] VITALS: BP 100/39; PULSE 61; RESP 20; TEMP 36.1; O2SAT 100
--- OUTSIDE RECORDS SUMMARY | 2025-01-08 06:33 | XMS_ITS | Continuity of Care Document ---
Author Name [facility] Address [address] [place] [address] Organization [facility] Care Team Providers Care Drawing Checker Name Role Phone [facility] Unavailable Unavailable Problems Problem [...] Comments Source clindamycin Assertion Drug allergy Active [facility] Bactrim Assertion Drug allergy Active [facility] sulfa drugs Assertion Drug allergy Active [facility]
--- OUTSIDE RECORDS SUMMARY | 2025-01-08 06:33 | XMS_ITS | Clinical Summary ---
Author Organization [facility] Address [address] [place] [address] Care Team Providers Care Photo Editor Name Role Phone Unknown, Provider Primary Care Provider Unavaila ble Source Comments [facility],non-owned Affiliates and Associated Physician Practices is amultiple site organization consisting of ambulatory clinics and hospital sitesin [place], [place], [place] and [place]. This disclosure is being madepursuant to the Care Everywhere program and may not contain all information available regarding this patient. Last updated 18.[facility] Allergies Active Allergy Reactions Criticality Noted Date [...] echogenic focus 03/03/2017 Supervision of normal in [facility] er 03/03/2017 Social History Tobacco Use Types Packs/Day Years Used Date Smoking Tobacco: Never Comments No Sex and Gender Information Value Date Recorded Sex Assigned at Not on file Legal Sex Female 9:35 AM HOUSE MOVER Gender Identity Not on file Sexual Orientation Not on file Last Filed Vital Signs Vital Sign Reading Time Taken Comments Blood Pressure 106/68 07/07/2016 12:06 PM HOUSE MOVER Pulse 78 07/07/2016 12:06 PM HOUSE MOVER Temperature 36.8 C (98.2 F) 07/07/2016 12:06 PM HOUSE MOVER Respiratory Rate 18 07/07/2016 12:06 PM HOUSE MOVER Oxygen Saturation - - Inhaled Oxygen Concentration - - Weight 63.5 kg (140 lb) 07/07/2016 12:06 PM HOUSE MOVER Height 162.6 cm (5' 4) 07/07/2016 12:06 PM HOUSE MOVER Body Mass Index 24.03 07/07/2016 12:06 PM HOUSE MOVER Plan of Treatment Health Maintenance Due Date [...] to complete this topic Insurance Care Teams Photo Editor Relationship Specialty Start Date End Date Unknown, Provider PCP - General 07/07/16
--- NOTE | 2025-01-08 07:16 | ED_ITS ---
HPI - Abdominal Pain General Chief Complaint: Abdominal Pain Stated Complaint: abd pain after starting period Time Seen by Provider: 01/08/25 07:16 Source: patient Mode of arrival: ambulatory Limitations: no limitations History of Present Illness HPI narrative: 34 YEARS OLD WHITE FEMALE DROVE HERSELF TO THE EMERGENCY ROOM COMPLAINING OF RIGHT LOWER QUADRANT PAIN STARTED YESTERDAY AFTER STARTED HER PERIOD. WAS SEEN BY HER FAMILY PHYSICIAN WHO TOLD HER THAT SHE NEED CT SCAN TO RULE OUT APPENDICITIS, THE ER WITH BASE YESTERDAY PATIENT DECIDED TO NOT WAIT AND CAME BACK THIS MORNING. SHE DENIES ANY FEVER CHILLS NAUSEA VOMITING DIARRHEA CONSTIPATION OR URINARY SYMPTOMS. CURRENTLY PATIENT DENIES ANY ABDOMINAL PAIN. PATIENT IS HEALTHY OTHERWISE DOES NOT TAKE MEDICINE, HISTORY OF CHOLELITHIASIS. USES MARIJUANA DAILY, DOES NOT SMOKE OR DRINK. Related Data Home Medications ?Medication ?Instructions ?Recorded ?Confirmed ?Last Taken ?Type Saccharomyces boulardii 250 mg 250 mg PO BID 11/17/22 01/07/25 Unknown History capsule (Daily Probiotic (S. boulardii)) biotin 10,000 mcg chewable tablet mcg PO 11/17/22 01/07/25 Unknown History (Hair, Skin and Nails (biotin)) d-mannose 500 mg capsule (AZO mg PO 11/17/22 01/07/25 Unknown History D-Mannose) Allergies Allergy/AdvReac Type Severity Reaction Status Date / Time sulfamethoxazole Allergy Mild Hives Verified 01/08/25 07:35 clindamycin Allergy Unknown Hives Verified 01/08/25 07:35 Sulfa (Sulfonamide Allergy Unknown Hives Verified 01/08/25 07:35 Antibiotics) trimethoprim Allergy Unknown Hives Verified 01/08/25 07:35 Review of Systems 2 Review of Systems: All systems reviewed & are unremarkable except as noted in HPI and below PMFSH Past Medical History Medical History Abnormal Pap smear of cervix 08/30/21, LSIL, HPV pos HSV (herpes simplex virus) infection Type 1 Vaginal delivery x4 Acid reflux Post depression Surgical History Surgical History History of tubal ligation 11/28/19 Family History Family History Mother Hypertension Breast cancer Asthma COPD (chronic obstructive pulmonary disease) Anxiety Neuropathy Back pain Colon cancer Father COPD (chronic obstructive pulmonary disease) Asthma Hypertension Thyroid disease Social History Social History Social History: Caffeine-soda,coffee Smoking status: Never smoker Alcohol intake: current Alcohol use details: rarely Substance use: current Substance use type: marijuana Do You Feel Safe in your Home?: Yes Lack of Transportation: No Lack of Food: Never True Current Housing: I Have Housing Concerned About Future Housing: No Difficulty Paying Gas/Electric Bills: No Difficulty Paying for Meds: No Currently Unemployed: No Education: High School Diploma/GED Gender identity (if verbalized by the patient): Female Spiritual care concerns: No Agree to blood products: Yes Exam 2 Narrative: GENERAL APPEARANCE: WELL-DEVELOPED, WELL-NOURISHED SKIN: NORMAL COLOR HEAD: NORMOCEPHALIC, NONTRAUMATIC EYES: CLEAR CONJUNCTIVA ENT: OROPHARYNX NORMAL, EARS NORMAL, NOSE NORMAL NECK: SUPPLE, NONTENDER CHEST AND RESPIRATORY: AIRWAY PATENT, NO RESPIRATORY DISTRESS, NO ACCESSORY MUSCLE USE HEART: REGULAR RATE/RHYTHM, BRADYCARDIA ABDOMEN: SOFT, NONTENDER, NO ORGANOMEGALY, QUIET BOWEL SOUNDS VASCULAR: NORMAL PERIPHERAL PULSES, NORMAL CAPILLARY REFILL. MUSCULOSKELETAL: NORMAL RANGE OF MOTION, NONTENDER BACK NEUROLOGIC: ALERT AND ORIENTED ?3, GEAR AND SPLINE GRINDER IS NORMAL TESTED, NO GROSS MOTOR DEFICIT Course Vital Signs Vital signs: Vital Signs Temperature 36.1 C L 01/08/25 06:32 Pulse Rate 61 01/08/25 06:32 Respiratory Rate 20 01/08/25 06:32 Blood Pressure 100/39 L 01/08/25 06:32 Pulse Oximetry 100 01/08/25 06:32 Oxygen Delivery Room Air 01/08/25 06:32 Temperature 36.1 C L 01/08/25 06:32 Pulse Rate 47 L 01/08/25 09:01 Respiratory Rate 18 01/08/25 09:01 Blood Pressure 103/63 01/08/25 09:01 Pulse Oximetry 100 01/08/25 09:01 Oxygen Delivery Room Air 01/08/25 06:32 MDM - Abdominal Pain MDM Narrative Medical decision making narrative: RIGHT LOWER QUADRANT PAIN VITAL SIGNS ARE STABLE PHYSICAL EXAM SHOWING NO ABDOMINAL TENDERNESS DIFFERENTIAL DIAGNOSIS ABDOMINAL PAIN MENSTRUAL CYCLE, APPENDICITIS, URINARY TRACT INFECTION, CONSTIPATION BLOOD WORKUP TODAY INCLUDES CBC, CMP, LIPASE SHOWED NO SIGNIFICANT ABNORMALITY URINALYSIS SHOWED NO SIGNIFICANT ABNORMALITY CT ABDOMEN AND PELVIS WITH IV CONTRAST SHOWED, POSSIBLE PELVIC CONGESTION SYNDROME CURRENTLY PATIENT IS ASYMPTOMATIC, HEART RATE IN THE EMERGENCY ROOM WENT DOWN BETWEEN 40 AND 50, PATIENT IS ASYMPTOMATIC, DENIES ANY SHORTNESS OF BREATH, PALPITATION, LIGHTHEADEDNESS, DIZZINESS OR CHEST PAIN. DIAGNOSIS ABDOMINAL PAIN, QUESTIONABLE PELVIC CONGESTION SYNDROME THE PT WAS DISCHARGED TO HOME.THE PT,S CONDITION UPON DISCHARGE WAS FAIR,EDUCATION WAS PROVIDED TO THE PT IN REFERENCE TO THE FINAL IMPRESSION,DISCHARGE STUDY RESULTS,TREATMENT,PROGNOSIS AND NEED FOR FOLLOW UP . Differential Diagnosis Differential diagnosis: Likely other ( ABOVE) Medical Records Attestation: I reviewed the patient's medical records. Lab Data Attestation: I reviewed the patient's lab results. 01/08/25 07:33 01/08/25 07:48 Labs: Lab Results 01/08/25 01/08/25 01/08/25 Range/Units 07:33 07:48 08:07 WBC 6.2 (4.5-10.0) K/mm3 RBC 4.17 L (4.2-5.4) M/mm3 Hgb 12.4 (12.0-15.0) g/dL Hct 38.1 (37.0-47.0) % MCV 91.4 (80-100) fl MCH 29.7 (26-34) pg MCHC 32.5 (32-36) g/dl RDW 13.4 (11.5-14.5) % Plt Count 195 (150-375) k/mm3 MPV 10.6 H (7.4-10.4) fl Immature Gran % (Auto) 0.2 (0-0.5) % Neut % (Auto) 67.4 (45.5-73.1) % Lymph % (Auto) 22.9 (18.3-44.2) % [place] % (Auto) 7.9 (2.6-8.5) % Eos % (Auto) 1.0 (0-4.4) % Baso % (Auto) 0.6 (0.2-1.2) % Lymph # (Auto) 1.42 (0.9-3.2) K/mm3 [place] # (Auto) 0.5 (0.1-0.6) K/mm3 Eos # (Auto) 0.1 (0-0.3) K/mm3 Baso # (Auto) 0.0 (0.0-0.1) K/mm3 Abs Immat Gran (auto) 0.01 (0.00-0.031) K/mm3 Absolute Neuts (auto) 4.2 (1.3-6.7) K/mm3 Absolute Nucleated RBC 0.000 (0.0-0.012) K/mm3 Nucleated RBC % 0.0 (0.0-0.2) % Sodium 136 L (137-145) mmol/L Potassium 3.8 (3.4-5.0) mmol/L Chloride 105 (98-107) mmol/L Carbon Dioxide 25 (22-30) mmol/L Anion Gap 6 (4-12) mmol/L BUN 14 (7-17) mg/dL Creatinine 0.67 L 0.70 (0.7-1.0) mg/dL Estim Creat Clear Calc 82 79 ml/min Estimated GFR > 60 > 60 (59 - ) Glucose 85 (65-110) mg/dL Calcium 8.9 (8.4-10.2) mg/dL Total Bilirubin 0.5 (0.2-1.3) mg/dL AST 22 (14-36) U/L ALT 14 (6-35) U/L Alkaline Phosphatase 53 (38-126) U/L Total Protein 7.2 (6.3-8.2) g/dL Albumin 4.2 (3.5-5.1) g/dL Lipase 62 (23-300) U/L Urine Color Yellow (Yellow) Urine Appearance Clear (Clear) Urine pH 5.5 (5.0-9.0) Ur Specific [place] > 1.045 H (1.001-1.035) Urine Protein Negative (Negative) mg/dL Urine Glucose (UA) Negative (Negative) mg/dL Urine Ketones Negative (Negative) mg/dL Ur Blood (Man) 1+ H (Negative) Urine Nitrate Negative (Negative) Urine Bilirubin Negative (Negative) Urine Urobilinogen 0.2 (<2.0) mg/dL Leukocyte Esterase Rfl Negative (Negative) ROBY/UL Urine RBC 0-2 (0-2) /hpf Urine WBC 0-5 (0-3) /hpf Ur Squamous Epith Cells Occasional (Few) /hpf Urine Bacteria None seen /hpf Urine Casts 0-2 Imaging Data Radiologist's impression: ITS Impressions Abdomen/Pelvis CT 01/08/25 07:58 IMPRESSION: 1. Prominent periuterine and ovarian veins, compatible with pelvic congestion, likely related to pelvic congestion syndrome if clinical symptoms support. Consider further evaluation with pelvic MR venography if symptoms are significant or atypical. 2: Nonobstructing right nephrolithiasis. Discharge Plan Discharge Clinical Impression: Abdominal pain, Female pelvic congestion syndrome, Bradycardia, sinus Patient Disposition: Home Condition: Stable Instructions: Abdominal Pain (ED) Additional Instructions: RETURN IF SYMPTOMS ARE WORSENING , CALL YOUR FAMILY PHYSICIAN FOR APPOINTMENT, TAKE TYLENOL, IBUPROFEN NEEDED FOR ACHES AND PAIN, CONTINUE HOME MEDICATIONS. Patient Language: Palauan Prescriptions: No Action Hair, Skin and Nails (biotin) 10,000 mcg tablet,chewable PO Saccharomyces boulardii [Daily Probiotic (S. boulardii)] 250 mg capsule 250 mg PO BID AZO D-Mannose 500 mg capsule PO Follow-up/Referrals: Barbie Cerda DO [Primary Care Provider] -
[2025-01-08 07:34] VITALS: BP 107/63; PULSE 43; RESP 14; O2SAT 100
[2025-01-08] MEDS: ONDANSETRON INJ 4 MG/2 ML VIAL IV PUSH (07:34)
[2025-01-08] MEDS: SODIUM CHLORIDE 0.9% IV 1,000 ML 999 ML IV CONT (07:35)
--- NOTE | 2025-01-08 07:42 | ECG_ITS ---
Test Date: 2025-01-08 08:14:34 Measurements Intervals [place] Rate: 40 P: 68 NM: 150 QRS: -31 QRSD: 90 T: 12 QT: 476 QTc: 392 Interpretive Statements MARKED SINUS BRADYCARDIA LEFT AXIS DEVIATION [QRS AXIS < -30] LOW QRS VOLTAGE IN PRECORDIAL LEADS [QRS DEFLECTION < 1.0 mV IN CHEST LEADS] ABNORMAL ECG No previous ECG available for comparison Electronically Signed On 01-08-2025 10:08:36 CDT by Km Murillo M.D.
[2025-01-08 07:43] LABS: Hematocrit 38.1 % (37.0-47.0); Hemoglobin 12.4 g/dL (12.0-15.0); Immature Granulocyte Percent A 0.2 % (0-0.5); Lymphocytes Absolute Auto 1.42 K/mm3 (0.9-3.2); Mean Corpuscular HGB Conc 32.5 g/dl (32-36); Mean Corpuscular Hemoglobin 29.7 pg (26-34); Mean Corpuscular Volume 91.4 fl (80-100); Nucleated Red Blood Cells Absolute Auto 0.000 K/mm3 (0.0-0.012); Nucleated Red Blood Cells Perc 0.0 % (0.0-0.2); Platelet Count Result 195 k/mm3 (150-375); Red Blood Count 4.17 M/mm3 (4.2-5.4); White Blood Count 6.2 K/mm3 (4.5-10.0)
[2025-01-08 07:50] LABS: Estimated CRCL calculation 79 ml/min; Estimated Glomerular Filt Rate > 60
--- OUTSIDE RECORDS SUMMARY | 2025-01-08 07:58 | XMS_ITS | Clinical Summary ---
Author Organization [facility] [employer] Address [address] [place] [address] Care Team Providers Care Utility System Repairer Name Role Phone Unknown, Provider Primary Care Provider Unavaila ble Source Comments [facility],non-owned Affiliates and Associated Physician Practices is amultiple site organization consisting of ambulatory clinics and hospital sitesin [place], [place], [place] and [place]. This disclosure is being madepursuant to the Care Everywhere program and may not contain all information available regarding this patient. Last updated 18.[facility] [employer] Allergies Active Allergy Reactions Criticality Noted Date [...] on file Legal Sex Female 9:35 AM OVERHEAD CRANE TECHNICIAN Gender Identity Not on file Sexual Orientation Not on file Last Filed Vital Signs Vital Sign Reading Time Taken Comments Blood Pressure 106/68 07/07/2016 12:06 PM OVERHEAD CRANE TECHNICIAN Pulse 78 07/07/2016 12:06 PM OVERHEAD CRANE TECHNICIAN Temperature 36.8 C (98.2 F) 07/07/2016 12:06 PM OVERHEAD CRANE TECHNICIAN Respiratory Rate 18 07/07/2016 12:06 PM OVERHEAD CRANE TECHNICIAN Oxygen Saturation - - Inhaled Oxygen Concentration - - Weight 63.5 kg (140 lb) 07/07/2016 12:06 PM OVERHEAD CRANE TECHNICIAN Height 162.6 cm (5' 4) 07/07/2016 12:06 PM OVERHEAD CRANE TECHNICIAN Body Mass Index 24.03 07/07/2016 12:06 PM OVERHEAD CRANE TECHNICIAN Plan of Treatment Health Maintenance Due Date [...] to complete this topic Insurance Care Teams Utility System Repairer Relationship Specialty Start Date End Date Unknown, Provider PCP - General 07/07/16
--- OUTSIDE RECORDS SUMMARY | 2025-01-08 07:58 | XMS_ITS | Continuity of Care Document ---
Author Name [facility] Address [address] [place] [address] Organization [facility] Care Team Providers Care Public Information Coordinator Name Role Phone [facility] Unavailable Unavailable Problems Problem Status [...] Comments Source clindamycin Assertion Drug allergy Active [facility] Bactrim Assertion Drug allergy Active [facility] sulfa drugs Assertion Drug allergy Active [facility]
[2025-01-08 08:10] LABS: Alanine Aminotransferase 14 U/L (6-35); Albumin Level 4.2 g/dL (3.5-5.1); Alkaline Phosphatase 53 U/L (38-126); Anion Gap 6 mmol/L (4-12); Aspartate Amino Transferase 22 U/L (14-36); Bilirubin,Total 0.5 mg/dL (0.2-1.3); Blood Urea Nitrogen 14 mg/dL (7-17); Calcium 8.9 mg/dL (8.4-10.2); Carbon Dioxide 25 mmol/L (22-30); Chloride 105 mmol/L (98-107); Estimated CRCL calculation 82 ml/min; Estimated Glomerular Filt Rate > 60; Glucose 85 mg/dL (65-110); Lipase 62 U/L (23-300); Potassium 3.8 mmol/L (3.4-5.0); Sodium 136 mmol/L (137-145); Total Protein 7.2 g/dL (6.3-8.2)
[2025-01-08 08:18] LABS: Add Urine Microscopic? YES; Appearance Urine Clear (Clear); Glucose Urine UA Negative (Negative); Leukocyte Esterase Ur Negative LEU/UL (Negative); Nitrate Urine Negative (Negative); Non Pathogenic Casts 0-2; Specific Grav Ur > 1.045 (1.001-1.035)
[2025-01-08 09:01] VITALS: BP 103/63; PULSE 47; RESP 18; O2SAT 100
== END 2025-01-08 09:40 | disposition home or self-care (01) ==
PROVIDERS: Emergency Provider Emergency Medicine; PCP Family Medicine
DX: N94.89 Other specified conditions associated with female genital organs and menstrual cycle (principal); R10.31 Right lower quadrant pain; R00.1 Bradycardia, unspecified; K21.9 Gastro-esophageal reflux disease without esophagitis; N20.0 Calculus of kidney
CPT/HCPCS: 36415; 74177; 80053; 81001; 83690; 85025; 93005; 96361; 96374; 99284; J2405; J7030; Q9967